=== PATIENT | male | born 1955 | race Caucasian/White ===

== ENCOUNTER 2017-06-11 06:52 | Emergency (ER) | payer BC, OTHER ==
[2017-06-11 07:03] VITALS: BP 180/88
[2017-06-11] MEDS ORDERED: cefTRIAXone 1 GM VIAL IM STA (07:57)
[2017-06-11] MEDS ORDERED: LIDOCAINE 1% 2 ML VIAL SUBQ ONE (07:57)
--- NOTE | 2017-06-11 08:00 | ED Physician Documentation ---
History of Present Illness - Stated complaint Stated Complaint: SWOLLEN LEG/DISCOLORED - Chief complaint Chief Complaint: Ext Problem - History obtained from History obtained from: Patient - History of Present Illness Timing: Last night - Additonal information Additional information: 61-year-old male noticed some redness to the lateral aspect of his right ankle last night before he went to bed. He did have some sweats last night and had some increase in his pain overnight. This morning he is found his leg is swollen there is redness that extends all the way around the heel and he has increased pain. He does not have a fever. He does not know of any risk factors for DVT he denies being sedentary he denies recent travel or confinement. He did have some cramping of the posterior calf last night. Review of Systems Constitutional: reports: Chills, Sweats. denies: Fever Eyes: denies: Decreased vision Ears: denies: Ear pain Nose: denies: Congestion Throat: denies: Sore throat Cardiac: denies: Chest pain / pressure, Palpitations Respiratory: denies: Dyspnea, Cough GI: denies: Abdominal Pain, Nausea, Vomiting : denies: Dysuria, Frequency Skin: reports: Rash Musculoskeletal: reports: Extremity pain, Extremity swelling. denies: Neck pain , Back pain, Joint pain, Joint swelling Neurologic: denies: Generalized weakness, Focal weakness, Numbness PD PAST MEDICAL HISTORY - Past Medical History Past Medical History: Yes Cardiovascular: Hypertension - Past Surgical History Past Surgical History: No - Present Medications Home Medications: Ambulatory Orders Medication Instructions Recorded Confirmed Benazepril HCl 40 mg PO DAILY 06/11/17 06/11/17 Sulfamethoxazole/Trimethoprim 1 each PO BID #14 tablet 06/11/17 [Sulfamethoxazole-Tmp Ds Tablet] - Allergies Allergies/Adverse Reactions: Allergies Allergy/AdvReac Type Severity Reaction Status Date / Time Penicillins Allergy Rash Verified 06/11/17 07:03 - Social History Does the pt smoke?: Yes Smoking Status: Current every day smoker Does the pt drink ETOH?: Yes ETOH Use: Beer Does the pt have substance abuse?: No - Immunizations Immunizations are current?: No PD ED PE NORMAL - Vitals Vital signs reviewed: Yes (Tachycardic and hypertensive) - General General: Alert and oriented X 3, No acute distress, Well developed/nourished - HEENT HEENT: Atraumatic, PERRL, EOMI - Neck Neck: Supple, no meningeal sign - Respiratory Respiratory: No respiratory distress - Derm Derm: Normal color, Warm and dry, No rash - Extremities Extremities: No deformity, Other (There is swelling of the right calf in general without pitting edema and there is no pain to palpation of the posterior aspect of the calf. There is erythema starting on the dorsal lateral surface of the right foot and extending around the back of the ankle to the medial aspect of the heel. There is erythema that is blanching I do not see an entrance wound. There is no lymphangitic streaking.) - Neuro Neuro: Alert and oriented X 3, No motor deficit, No sensory deficit, Normal speech Eye Opening: Spontaneous Motor: Obeys Commands Verbal: Oriented GCS Score: 15 - Psych Psych: Normal mood, Normal affect Results - Vitals Vitals: Vital Signs - 24 hr 06/11/17 06:59 Temperature 36.8 C Heart Rate 105 H Respiratory 16 Rate Blood Pressure 180/88 H O2 Saturation 98 Oxygen O2 Source Room air PD MEDICAL DECISION MAKING - ED course Complexity details: reviewed results, re-evaluated patient, considered differential, d/w patient ED course: 61-year-old male with swelling and redness to the right foot appears to have cellulitis. On my initial evaluation I was concerned about the possibility of DVT as the calf appeared generally swollen. There is no lymphangitic streaking and the patient is afebrile. Here in the emergency department he is administered Rocephin IM and we will place him on some sulfamethoxazole trimethoprim. I have asked patient to use a warm compress and elevate his leg and follow-up for failure to improve. Departure - Departure Disposition: 01 Home, Self Care Clinical Impression: Cellulitis Qualifiers: Site of cellulitis: extremity Site of cellulitis of extremity: lower extremity Laterality: right Qualified Code(s): L03.115 - Cellulitis of right lower limb Condition: Stable Instructions: ED Infec Skin Cellulitis Follow-Up: [facility] [Provider Group] Prescriptions: Sulfamethoxazole/Trimethoprim [Sulfamethoxazole-Tmp Ds Tablet] 1 each PO BID # 14 tablet
--- NOTE | 2017-06-11 08:29 | Ultrasound Report ---
EXAM: RIGHT LOWER EXTREMITY VENOUS ULTRASOUND EXAM DATE: 06/11/2017 07:50 AM. CLINICAL HISTORY: Right leg swelling tender redness. COMPARISON: None. TECHNIQUE: Real-time sonographic vascular imaging was performed by the electro mechanical designer through the lower extremity utilizing both color-flow and Doppler spectral analysis. Multiple junior sales representative static alpesh ges were saved for review. FINDINGS: Common Femoral Vein (CFV): Normal. CFV-GSV Junction: Normal. Profunda Femoral Vein (PFV): Normal. Femoral Vein (FV) Prox: Normal. Femoral Vein (FV) Mid: Normal. Femoral Vein (FV) Dist: Normal. Popliteal Vein: Normal. Posterior Tibial Veins: Normal. Peroneal Veins: Normal. Other: None. IMPRESSION: No evidence for deep venous thrombosis. [facility] Referring Provider Line: [phone] SITE ID: [id number]
== END 2017-06-11 08:29 | disposition home or self-care (01) ==
LOC: ED 06:52
DX: L03.115 Cellulitis of right lower limb (principal); I10 Essential (primary) hypertension; F17.200 Nicotine dependence, unspecified, uncomplicated
CPT/HCPCS: 96372; 99283

== ENCOUNTER 2020-10-06 12:07 | Outpatient (CLI) | payer MEDICARE, OTHER ==
--- NOTE | 2020-10-06 12:44 | XRAY Report ---
PROCEDURE: Elbow 3 View RT INDICATIONS: WRIST DROP TECHNIQUE: 3 views of the elbow were acquired. COMPARISON: Same day wrist radiographs. FINDINGS: Bones: No fractures or dislocations. Mild degenerative change appreciated. No suspicious bony lesio ns. Soft tissues: No posterior elbow joint effusion. No suspicious soft tissue calcifications. IMPRESSION: No acute osseous abnormality. Reviewed by: Yannick Powell MD on 10/06/2020 12:43 PM PDT Approved by: Yannick Powell MD on 10/06/2020 12:43 PM PDT Station ID: [id number]
--- NOTE | 2020-10-06 12:47 | XRAY Report ---
PROCEDURE: Wrist 3 View RT INDICATIONS: WRIST DROP TECHNIQUE: 3 views of the wrist were acquired. COMPARISON: Same day right elbow radiographs. FINDINGS: Bones: No acute fractures or dislocations. Suspect prior fracture deformity of the fifth metacarpal. Moderate degenerative change most pronounced at the first CMC joint. Bones appear somewhat osteopeni c. No suspicious bony lesions. Soft tissues: No suspicious soft tissue calcifications. IMPRESSION: No acute osseous abnormality. 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 Results were communicated to Dr. Magdalena Garrido at 10/06/2020 12:45 PM PDT. Reviewed by: Yannick Powell MD on 10/06/2020 12:45 PM PDT Approved by: Yannick Powell MD on 10/06/2020 12:45 PM PDT Station ID: [id number]
== END 2020-10-06 12:08 | disposition home or self-care (01) ==
LOC: DI 12:07
PROVIDERS: ATTEND Internal Medicine
DX: M21.331 Wrist drop, right wrist (principal); M19.031 Primary osteoarthritis, right wrist

== ENCOUNTER 2022-04-04 11:20 | Outpatient (CLI) | payer MEDICARE, OTHER | END 2022-04-04 11:21 | disposition critical access hospital (66) | LOC: EMS 11:20 | DX: R53.1 Weakness (principal); M25.569 Pain in unspecified knee; R62.7 Adult failure to thrive; Z72.89 Other problems related to lifestyle | CPT/HCPCS: A0425; A0429 ==

== ENCOUNTER 2022-04-04 11:37 | Inpatient (IN) | payer MEDICARE, OTHER ==
[2022-04-04] MEDS ORDERED: THIAMINE INJ 100 MG in SODIUM CHLORIDE 0.9% 50 ML IV STA (11:52)
--- NOTE | 2022-04-04 11:54 | ED Physician Documentation ---
History of Present Illness - Stated complaint Stated Complaint: FTT - History obtained from History obtained from: Patient, EMS - Additonal information Additional information: 66-year-old gentleman with history of hypertension brought in by ambulance. He lives alone but with frequent visits by family. His son-in-law is at the bedside who gives much of the history. Lately he has been increasingly weak and off balance with increasing confusion. He drinks heavily, every day starting about 9 in the morning. 5 days ago he fell out of his desk chair and his walker hit him in the back of the head. He also has poor mobility because of known bad knees, has seen a specialist for same but cannot have surgery due to ongoing comorbidities including alcohol and tobacco use. His only prescribed medication is an unknown antihypertensive. Review of Systems Unable to obtain: Confused PD PAST MEDICAL HISTORY - Past Medical History Cardiovascular: Hypertension - Past Surgical History Past Surgical History: No - Present Medications Home Medications: Ambulatory Orders Medication Instructions Recorded Confirmed Benazepril HCl 40 mg PO DAILY 06/11/17 06/11/17 Sulfamethoxazole/Trimethoprim 1 each PO BID #14 tablet 06/11/17 [Sulfamethoxazole-Tmp Ds Tablet] - Allergies Allergies/Adverse Reactions: Allergies Allergy/AdvReac Type Severity Reaction Status Date / Time Penicillins Allergy Rash Verified 06/11/17 07:03 - Social History Does the pt smoke?: Yes Smoking Status: Current every day smoker Does the pt drink ETOH?: Yes Does the pt have substance abuse?: No - Immunizations Immunizations are current?: No PD ED PE NORMAL - Vitals Vital signs reviewed: Yes - General General: Other (He is alert and oriented to person and place but a poor historian for events. He is disheveled and soiled) - HEENT HEENT: PERRL, EOMI - Neck Neck: Supple, no meningeal sign, No bony TTP - Cardiac Cardiac: RRR, No murmur - Respiratory Respiratory: No respiratory distress, Clear bilaterally - Abdomen Abdomen: Non tender - Back Back: No CVA TTP, No spinal TTP - Derm Derm: Normal color, Warm and dry - Extremities Extremities: Other (Bilateral knees are swollen consistent with osteoarthritis) - Neuro Neuro: golf club manager 2-12 intact Eye Opening: Spontaneous Motor: Obeys Commands Verbal: Confused GCS Score: 14 Results - Vitals Vitals: Vital Signs - 24 hr 04/04/22 04/04/22 11:47 14:58 Temperature 37.6 C Heart Rate 99 104 H Respiratory 19 28 H Rate Blood Pressure 142/78 H 145/78 H O2 Saturation 99 94 Oxygen O2 Source Room air - EKG (time done) 1220 Rate: Rate (enter#) (94) Rhythm: NSR Other comments: Other comments (Significant artifact makes the EKG almost uninterpretable. There is no clear ST elevation.) - Labs Labs: Laboratory Tests 04/04/22 04/04/22 04/04/22 12:03 12:03 12:03 WBC 7.5 RBC 4.47 L Hgb 14.6 Hct 40.0 L MCV 89.5 MCH 32.7 H MCHC 36.5 H RDW 11.9 L Plt Count 142 MPV 9.9 Neut # (Auto) Not Reportable Lymph # (Auto) Not Reportable Mchenry # (Auto) Not Reportable Eos # (Auto) Not Reportable Baso # (Auto) Not Reportable Absolute Nucleated RBC Not Reportable Total Counted 100 Band Neuts % (Manual) 7 Reactive Lymphs % (Man) 2 Abnorm Lymph % (Manual) 0 Nucleated RBC % Not Reportable Neutrophils # (Manual) 6.2 Lymphocytes # (Manual) 0.4 L Monocytes # (Manual) 1.0 Eosinophils # (Manual) 0.0 Basophils # (Manual) 0.0 Differential Comment MANUAL DIFFERENTIAL Manual Slide Review Indicated PT 11.9 INR 1.1 VBG pH VBG pCO2 VBG pO2 VBG HCO3 VBG Total CO2 VBG O2 Saturation VBG Base Excess Sodium 106 L* Potassium 3.9 Chloride 74 L* Carbon Dioxide 22 Anion Gap 10.0 BUN 20 Creatinine 0.7 Estimated GFR (MDRD) 112 Glucose 104 H Calcium 7.6 L Magnesium 2.4 Total Bilirubin 1.4 H AST 161 H ALT 95 H Alkaline Phosphatase 76 Ammonia Total Creatine Kinase 1788 H* Total Protein 6.8 Albumin 3.2 Globulin 3.6 Albumin/Globulin Ratio 0.9 L TSH Urine Color Urine Clarity Urine pH Ur Specific Cary Urine Protein Urine Glucose (UA) Urine Ketones Urine Occult Blood Urine Nitrite Urine Bilirubin Urine Urobilinogen Ur Leukocyte Esterase Ur Microscopic Review Urine Culture Comments Nasal Adenovirus (PCR) Nasal B. parapertussis DNA (PCR) Nasal Coronavir 229E PCR Nasal Coronavir HKU1 PCR Nasal Coronavir NL63 PCR Nasal Coronavir OC43 PCR Nasal Enterovir/Rhinovir PCR Nasal Influ A H1 2009 PCR Nasal Influenza B PCR Nasal Parainfluen 1 PCR Nasal Parainfluen 2 PCR Nasal Parainfluen 3 PCR Nasal Parainfluen 4 PCR Nasal RSV (PCR) Nasal B.pertussis DNA PCR Nasal C.pneumoniae (PCR) Mitchell Human Metapneumo PCR Nasal M.pneumoniae (PCR) Nasal SARS-CoV-2 (PCR) Urine Opiates Screen Ur Oxycodone Screen Urine Methadone Screen Ur Propoxyphene Screen Ur Barbiturates Screen Ur Tricyclics Screen Ur Phencyclidine Scrn Ur Amphetamine Screen U Methamphetamines Scrn U Benzodiazepines Scrn Urine Cocaine Screen U Cannabinoids Screen Ethyl Alcohol < 5.0 04/04/22 04/04/22 04/04/22 12:03 12:03 12:03 WBC RBC Hgb Hct MCV MCH MCHC RDW Plt Count MPV Neut # (Auto) Lymph # (Auto) Mchenry # (Auto) Eos # (Auto) Baso # (Auto) Absolute Nucleated RBC Total Counted Band Neuts % (Manual) Reactive Lymphs % (Man) Abnorm Lymph % (Manual) Nucleated RBC % Neutrophils # (Manual) Lymphocytes # (Manual) Monocytes # (Manual) Eosinophils # (Manual) Basophils # (Manual) Differential Comment Manual Slide Review PT INR VBG pH 7.466 H VBG pCO2 31.9 L VBG pO2 51.2 H VBG HCO3 22.5 L VBG Total CO2 23.5 L VBG O2 Saturation 90.0 H VBG Base Excess -0.3 Sodium Potassium Chloride Carbon Dioxide Anion Gap BUN Creatinine Estimated GFR (MDRD) Glucose Calcium Magnesium Total Bilirubin AST ALT Alkaline Phosphatase Ammonia 16.4 Total Creatine Kinase Total Protein Albumin Globulin Albumin/Globulin Ratio TSH 0.88 Urine Color Urine Clarity Urine pH Ur Specific Cary Urine Protein Urine Glucose (UA) Urine Ketones Urine Occult Blood Urine Nitrite Urine Bilirubin Urine Urobilinogen Ur Leukocyte Esterase Ur Microscopic Review Urine Culture Comments Nasal Adenovirus (PCR) Nasal B. parapertussis DNA (PCR) Nasal Coronavir 229E PCR Nasal Coronavir HKU1 PCR Nasal Coronavir NL63 PCR Nasal Coronavir OC43 PCR Nasal Enterovir/Rhinovir PCR Nasal Influ A H1 2009 PCR Nasal Influenza B PCR Nasal Parainfluen 1 PCR Nasal Parainfluen 2 PCR Nasal Parainfluen 3 PCR Nasal Parainfluen 4 PCR Nasal RSV (PCR) Nasal B.pertussis DNA PCR Nasal C.pneumoniae (PCR) Mitchell Human Metapneumo PCR Nasal M.pneumoniae (PCR) Nasal SARS-CoV-2 (PCR) Urine Opiates Screen Ur Oxycodone Screen Urine Methadone Screen Ur Propoxyphene Screen Ur Barbiturates Screen Ur Tricyclics Screen Ur Phencyclidine Scrn Ur Amphetamine Screen U Methamphetamines Scrn U Benzodiazepines Scrn Urine Cocaine Screen U Cannabinoids Screen Ethyl Alcohol 04/04/22 04/04/22 12:24 15:13 WBC RBC Hgb Hct MCV MCH MCHC RDW Plt Count MPV Neut # (Auto) Lymph # (Auto) Mchenry # (Auto) Eos # (Auto) Baso # (Auto) Absolute Nucleated RBC Total Counted Band Neuts % (Manual) Reactive Lymphs % (Man) Abnorm Lymph % (Manual) Nucleated RBC % Neutrophils # (Manual) Lymphocytes # (Manual) Monocytes # (Manual) Eosinophils # (Manual) Basophils # (Manual) Differential Comment Manual Slide Review PT INR VBG pH VBG pCO2 VBG pO2 VBG HCO3 VBG Total CO2 VBG O2 Saturation VBG Base Excess Sodium Potassium Chloride Carbon Dioxide Anion Gap BUN Creatinine Estimated GFR (MDRD) Glucose Calcium Magnesium Total Bilirubin AST ALT Alkaline Phosphatase Ammonia Total Creatine Kinase Total Protein Albumin Globulin Albumin/Globulin Ratio TSH Urine Color DARK YELLOW Urine Clarity CLEAR Urine pH 6.0 Ur Specific Cary 1.015 Urine Protein NEGATIVE Urine Glucose (UA) NEGATIVE Urine Ketones 15 H Urine Occult Blood NEGATIVE Urine Nitrite NEGATIVE Urine Bilirubin NEGATIVE Urine Urobilinogen 0.2 (NORMAL) Ur Leukocyte Esterase NEGATIVE Ur Microscopic Review NOT INDICATED Urine Culture Comments NOT INDICATED Nasal Adenovirus (PCR) NOT DETECTED Nasal B. parapertussis DNA (PCR) NOT DETECTED Nasal Coronavir 229E PCR NOT DETECTED Nasal Coronavir HKU1 PCR NOT DETECTED Nasal Coronavir NL63 PCR NOT DETECTED Nasal Coronavir OC43 PCR NOT DETECTED Nasal Enterovir/Rhinovir PCR NOT DETECTED Nasal Influ A H1 2009 PCR DETECTED A Nasal Influenza B PCR NOT DETECTED Nasal Parainfluen 1 PCR NOT DETECTED Nasal Parainfluen 2 PCR NOT DETECTED Nasal Parainfluen 3 PCR NOT DETECTED Nasal Parainfluen 4 PCR NOT DETECTED Nasal RSV (PCR) NOT DETECTED Nasal B.pertussis DNA PCR NOT DETECTED Nasal C.pneumoniae (PCR) NOT DETECTED Mitchell Human Metapneumo PCR NOT DETECTED Nasal M.pneumoniae (PCR) NOT DETECTED Nasal SARS-CoV-2 (PCR) NOT DETECTED Urine Opiates Screen NEGATIVE Ur Oxycodone Screen NEGATIVE Urine Methadone Screen NEGATIVE Ur Propoxyphene Screen NEGATIVE Ur Barbiturates Screen NEGATIVE Ur Tricyclics Screen NEGATIVE Ur Phencyclidine Scrn NEGATIVE Ur Amphetamine Screen NEGATIVE U Methamphetamines Scrn NEGATIVE U Benzodiazepines Scrn NEGATIVE Urine Cocaine Screen NEGATIVE U Cannabinoids Screen NEGATIVE Ethyl Alcohol - Rads (name of study) CT of the head is without traumatic abnormality. Radiology: Final report received, EMP read indepedently PD Medical Decision Making - ED course ED course: 66-year-old gentleman with alcoholism and bad knees and hypertension presents with altered mental status. He is unkempt and confused. Work-up in the emergency department noted a profoundly low sodium at 106, no alcohol on board, mild abnormalities in liver function and moderate rhabdomyolysis. His supportive son-in-law, Zain, was at the bedside. His phone number is [phone]. Given the profundity of his hyponatremia he was administered 100 mL of 3% hypertonic saline. Spoke with Dr. Desai for admission at 3:[address] of the head and cervical spine without evidence of acute trauma. - Critical Care Time(min): 40 Time Includes: Direct patient care, Review records, Reassess patient, Document care, Coordinate care, Medical consult, Family consult for tx dec Data interpretation: Labs, Pulse ox Procedures included in critical care time: Peripheral IV Procedures excluded from critical care time: EKG Departure - Departure Disposition: 66 [facility] DC/Xfer Clinical Impression: Hyponatremia, Encephalopathy, Alcoholism, Rhabdomyolysis Condition: Critical
[2022-04-04 12:10] LABS: BASOPHILS % (AUTO) 0.4 %; EOSINOPHILS % (AUTO) 35.8 %; HGB - HEMOGLOBIN 14.6 g/dL (14.0-18.0); LYMPHOCYTES % (AUTO) 7.6 %; MEAN CORPUSCULAR HEMOGLOBIN 32.7 pg (27.0-31.0); MEAN CORPUSCULAR HGB CONC 36.5 g/dL (32.0-36.0); MEAN CORPUSCULAR VOLUME 89.5 fL (80.0-94.0); MEAN PLATELET VOLUME 9.9 fL (7.4-11.4); MONOCYTES % (AUTO) 10.9 %; NEUTROPHILS % (AUTO) 43.3 %; PLT - PLATELET COUNT 142 10^3/uL (130-450); RED BLOOD COUNT 4.47 10^6/uL (4.70-6.10); RED CELL DISTRIBUTION WIDTH 11.9 % (12.0-15.0); WHITE BLOOD COUNT 7.5 x10^3/uL (4.8-10.8)
[2022-04-04 12:12] LABS: SLIDE REVIEW? Indicated
[2022-04-04 12:13] LABS: ABNORMAL LYMPHS % (MANUAL) 0 %
[2022-04-04 12:16] LABS: INR 1.1 (0.8-1.2); PT - PROTHROMBIN TIME 11.9 secs (9.9-12.6)
[2022-04-04 12:18] LABS: VBG BASE EXCESS -0.3 mmol/L (-2 - +2); VBG HCO3 22.5 mmol/L (23-28); VBG PCO2 31.9 mmHg (41-51); VBG PH 7.466 (7.31-7.41); VBG PO2 51.2 mmHg (25-47); VBG TOTAL CO2 23.5 mmol/L (24-29)
[2022-04-04 12:35] LABS: ALBUMIN 3.2 g/dL (3.2-5.5); ALBUMIN/GLOBULIN RATIO 0.9 (1.0-2.2); ALKALINE PHOSPHATASE 76 IU/L (42-121); ALT ALANINE AMINOTRANSFERASE 95 IU/L (10-60); AST ASPARTATE AMINOTRANSFERASE 161 IU/L (10-42); BILIRUBIN,TOTAL 1.4 mg/dL (0.2-1.0); BUN - BLOOD UREA NITROGEN 20 mg/dL (6-20); CALCIUM 7.6 mg/dL (8.5-10.3); CARBON DIOXIDE - CO2 22 mmol/L (21-32); CREATININE 0.7 mg/dL (0.6-1.2); ETOH - ETHANOL < 5.0 mg/dL; GFR - MDRD 112 (>89); GLUCOSE 104 mg/dL (70-100); MAGNESIUM 2.4 mg/dL (1.7-2.8); POTASSIUM 3.9 mmol/L (3.5-5.0); TOTAL PROTEIN 6.8 g/dL (6.7-8.2)
[2022-04-04] MEDS ORDERED: NOREPINEPHRINE/D5W 8 MG/250 ML BAG IV STA (12:41)
--- NOTE | 2022-04-04 12:49 | XRAY Report ---
PROCEDURE: Chest 1 View X-Ray INDICATIONS: confusion TECHNIQUE: One view of the chest was acquired. COMPARISON: None. FINDINGS: Surgical changes and devices: None. Lungs and pleura: No pleural effusions or pneumothorax. Minimal patchy bibasilar atelectasis. Mediastinum: Mediastinal contours appear normal. Heart size is normal. Bones and chest wall: No suspicious bony lesions. Overlying soft tissues appear unremarkable. IMPRESSION: Minimal patchy bibasilar atelectasis. Reviewed by: Jose Hunter MD on 04/04/2022 12:48 PM PST Approved by: Jose Hunter MD on 04/04/2022 12:48 PM PST Station ID: [id number]
[2022-04-04 12:58] LABS: BAND NEUTROPHILS % (MANUAL) 7 %; DIFFERENTIAL COMMENT MANUAL DIFFERENTIAL; LYMPHOCYTES # (MANUAL) 0.4 10^3/uL (1.5-3.5); LYMPHOCYTES % (MANUAL) 3 %; NEUTROPHILS # (MANUAL) 6.2 10^3/uL (1.5-6.6); REACTIVE LYMPHS % (MANUAL) 2 %
[2022-04-04 13:01] LABS: CHLORIDE 74 mmol/L (101-111); CK- CREATINE KINASE 1788 IU/L (22-269); SODIUM 106 mmol/L (135-145)
[2022-04-04] MEDS ORDERED: SODIUM CHLORIDE 3% HYPERTONIC 100 ML IV SCH (14:00)
--- NOTE | 2022-04-04 14:26 | CT Report ---
PROCEDURE: HEAD WO INDICATIONS: head injury TECHNIQUE: Noncontrast 4.5 mm thick angled axial sections acquired from the foramen magnum to the vertex. For r adiation dose reduction, the following was used: automated exposure control, adjustment of mA and/or kV according to patient size. COMPARISON: None. FINDINGS: Image quality: Suboptimal due to motion artifact. CSF spaces: Basal cisterns are patent. No extra-axial fluid collections. Ventricles are normal in size and shape. Brain: Ill-defined periventricular and deep white matter hypodensities, nonspecific, likely sequela of microvascular ischemic change. No midline shift. No intracranial masses or hemorrhage. Landin-whit e matter interface is normal. Skull and face: Calvarium and visualized facial bones are intact, without suspicious lesions. Sinuses: Bilateral maxillary sinus mucoperiosteal thickening. IMPRESSION: No intracranial hemorrhage or other acute intracranial abnormality. Reviewed by: Noé Johnson MD on 04/04/2022 2:25 PM PST Approved by: Noé Johnson MD on 04/04/2022 2:25 PM PST Station ID: [id number]
[2022-04-04 15:18] LABS: MUDS CUTOFF CONCENTRATIONS CUTOFF CONC BELOW:
--- NOTE | 2022-04-04 15:22 | CT Report ---
PROCEDURE: CERVICAL SPINE WO INDICATIONS: head inju TECHNIQUE: Noncontrast 3 mm thick sections acquired from the skull base to the T4 level. Sagittal and coronal r eformats were then constructed. For radiation dose reduction, the following was used: automated exp osure control, adjustment of mA and/or kV according to patient size. COMPARISON: None. FINDINGS: Image quality: Excellent. Bones: No fractures or dislocations. Visualized superior ribs are intact. Severe cervical spondylit ic change. Multilevel prominent facet arthropathy. Trace degenerative anterolisthesis of C2 on C3. An terolisthesis of C3 on C4 measures approximately 4 mm. Trace degenerative retrolisthesis of C4 on C5. Multilevel foraminal narrowing. Soft tissues: Prevertebral soft tissues are normal in thickness. No paravertebral hematomas. No ap ical pneumothoraces. Small questioned spiculated density, anterior right apex. Probable left apical infiltrate. IMPRESSION: 1. No evidence acute cervical fracture or dislocation. 2. Severe cervical spondylitic change. 3. Question small spiculated lesion, right apex, incompletely imaged, question left apical pneumonia. Comment: Consider chest CT for further evaluation. Reviewed by: Jose Hunter MD on 04/04/2022 3:21 PM PST Approved by: Jose Hunter MD on 04/04/2022 3:21 PM PST Station ID: [id number]
[2022-04-04 15:25] LABS: BILIRUBIN,URINE NEGATIVE (NEGATIVE); GLUCOSE, URINE (UA) NEGATIVE (NEGATIVE); KETONES,URINE (UA) 15 mg/dL (NEGATIVE); LEUKOCYTE ESTERASE, URINE NEGATIVE (NEGATIVE); NITRITE,URINE NEGATIVE (NEGATIVE); OCCULT BLOOD,URINE NEGATIVE (NEGATIVE); PROTEIN,URINE NEGATIVE (NEGATIVE); UROBILINOGEN,URINE 0.2 (NORMAL) E.U./dL (NORMAL)
[2022-04-04 15:28] LABS: CLARITY,URINE CLEAR (CLEAR)
[2022-04-04 15:35] LABS: AMPHETAMINE SCREEN,URINE NEGATIVE (NEGATIVE); BARBITURATE SCREEN,UR NEGATIVE (NEGATIVE); BENZODIAZEPINES SCREEN, URINE NEGATIVE (NEGATIVE); COCAINE SCREEN URINE NEGATIVE (NEGATIVE); METHADONE SCREEN, URINE NEGATIVE (NEGATIVE); METHAMPHETAMINES SCREEN, URINE NEGATIVE (NEGATIVE); OPIATE SCREEN, URINE NEGATIVE (NEGATIVE); OXYCODONE SCREEN, URINE NEGATIVE (NEGATIVE); PROPOXYPHENE SCREEN, URINE NEGATIVE (NEGATIVE); THC CANNABINOID SCREEN, URINE NEGATIVE (NEGATIVE); TRICYCLIC ANTIDEPRESSANT,URINE NEGATIVE (NEGATIVE)
[2022-04-04] MEDS ORDERED: oxyCODONE 5 MG TABLET PO PRN (15:40)
[2022-04-04] MEDS ORDERED: ONDANSETRON ODT 4 MG TABLET TL PRN (15:40)
[2022-04-04] MEDS ORDERED: ACETAMINOPHEN 325 MG TABLET PO PRN (15:40)
[2022-04-04] MEDS ORDERED: SODIUM CHLORIDE FLUSH 0.9% 10 ML SYRINGE IVP PRN (15:40)
[2022-04-04] MEDS ORDERED: ONDANSETRON 4 MG/2 ML VIAL IVP PRN (15:40)
[2022-04-04 15:41] LABS: CORONAVIRUS 229E-RESP PCR NOT DETECTED; CORONAVIRUS HKU1-RESP PCR NOT DETECTED; CORONAVIRUS NL63-RESP PCR NOT DETECTED; CORONAVIRUS OC43-RESP PCR NOT DETECTED
[2022-04-04 15:42] LABS: B. PARAPERTUSSIS- RESP PCR PAN NOT DETECTED; B. PERTUSSIS- RESP PCR PANEL NOT DETECTED; C. PNEUMONIAE- RESP PCR PANEL NOT DETECTED; HUMAN METAPNEUMOVIRUS NOT DETECTED; INFLUENZA A H1 2009- RESP PCR DETECTED; INFLUENZA B - RESP PCR PANEL NOT DETECTED; M. PNEUMONIAE- RESP PCR PANEL NOT DETECTED; PARAINFLUENZA VIRUS 1 NOT DETECTED; PARAINFLUENZA VIRUS 2 NOT DETECTED; PARAINFLUENZA VIRUS 3 NOT DETECTED; PARAINFLUENZA VIRUS 4 NOT DETECTED; RHINOVIRUS/ENTEROVIRUS NOT DETECTED; RSV- RESP PCR PANEL NOT DETECTED; SARS-CoV-2 -RESP PCR PANEL NOT DETECTED
--- NOTE | 2022-04-04 15:56 | HISTORY & PHYSICAL EXAMINATION ---
Chief Complaint - Chief Complaint Chief Complaint: weakness and confusion History of Present Illness - Admitted From Admitted From:: [facility] - History Obtained From Records Reviewed: [facility] History obtained from: Exam Limitations: confused and disoriented - History of Present Illness HPI Comment/Other: LIves alone in his home with . 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 Not home until evenings. He sits at chair in computer for years now. Watches videos, reads papers, [employer]. Doesn't move. No hx of CHF or chirrosis. Refuses to see a doctor or do tests. Sees Magdalena Garrido MD and she wanted to do some tests a while back and he refused. So afer several calls where they attempted to get him to come in and he refused, they gave up. He is an alcoholic and drinks 12-15 beers a day. In the last few days, none. Both he and got a virus. Cough, congestion. He complains of WOODWARD and neck pain, diarrhea. She kept having to change him and clean him up becasue of incontinence. Gave him peptobismol. He has been eating and drinking his one meal a day like usual, no change in that. He has not been drinking a lot of water. She feels has been drinking his normal amount of water. However, he got to the point he couldn't stand up and fell 3 times. She and son in law would pick him up. Last night, they got him up to chair and he spent the night there. No fever, no abd pain, no chest pain. This morning, when he just could not get up out of the chair, they decided to call an ambulance. In the ER temperature was 37.6. Heart rate 99. Blood pressure 142/78. Respirations 19. 99% on room air. He is 5 foot 9 inches tall. He was alert and oriented but a poor historian for events. He was disheveled, soiled. He had a benign respiratory and abdominal exam. Both of his knees were swollen with osteoarthritis. Sodium was 106, potassium 3.9, chloride 74. BUN 20, creatinine 0.7. Glucose is 104. Calcium 7.6. Total bili 1.4. AST 161. ALT 95. Ammonia level was 16.4. CK was 1788. TSH was 0.88. White cell count was 7.5, hemoglobin 14.6, hematocrit 40. Platelets 142.Chest x-ray, head CT, and cervical spine CT were done. He has some minimal patchy bibasilar atelectasis but no acute findings of stroke, hemorrhage in the brain. We discussed the case. Differential diagnosis of why you would have a low sodium. He does not have excessive water intake. There is no medication that he is taking that would cause this. No suspicion of SIADH. In this patient, the thought is his alcohol abuse. Possibly beer potomania. The usual description is that of excessive intake of alcohol, particularly beer, and you combine that with poor dietary intake that leads to fatigue, dizziness, severe hyponatremia. I have been asked to bring him into the hospital. History - Past Medical History Cardiovascular: reports: Hypertension Respiratory: reports: COPD (probably bc coughs all days for years. ) Neuro: reports: Dementia (developing over the last few years, babbles some times) : reports: Incontinence HEENT: reports: Chronic vision loss Musculoskeletal: reports: Osteoarthritis MRSA Hx?: No - Family & Social History Family History Comment/Other: Mom alive and lives in [facility]. Dad 57 years old of CHF. [place] (+). sister in [place]. She is healthy. no hx of illness. 1 daughter is healthy. Living arrangement: At home Living Situation: With spouse/s.o. 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 Lifelong drinker. Friend nina him a bottle of bourbon last week but couldn't do it and hid it. Rehab once when daughter was a baby. Lifelong smoker, carton if cigs a week right now. 46 years. He met his in [place] when he was in the [employer] Born in [facility] and emigrated at 10- 10 years of age.No recreational substance abuse. - POLST Patient has POLST: No POLST Status: Full Code Meds/Allgy - Home Medications Home Medications: Ambulatory Orders Medication Instructions Recorded Confirmed Benazepril HCl 40 mg PO DAILY 06/11/17 06/11/17 Sulfamethoxazole/Trimethoprim 1 each PO BID #14 tablet 06/11/17 [Sulfamethoxazole-Tmp Ds Tablet] - Allergies Allergies/Adverse Reactions: Allergies Allergy/AdvReac Type Severity Reaction Status Date / Time Penicillins Allergy Rash Verified 06/11/17 07:03 Review of Systems - Other Findings Other Findings: Other than what was described to me by his , the patient is really not able to answer my questions with regards to his overall general health. Prior Level of Functionality: sits at the computer. Baths himself, feeds himself. Knees are bad and go out but he can get up. Still drives but hasn't done it since September when he got covid in October. Twice out since then. Uses a walker. Shower chair. Raised toilet seat. Exam - Vital Signs Reviewed Vital Signs: Yes Vital Signs: Vital Signs x48h Temp Pulse Resp BP Pulse Ox 04/04/22 11:47 37.6 C 99 19 142/78 H 99 - Physical Exam General Appearance: positive: No acute distress, Alert, Other (Disheveled, unkempt.) Eyes Bilateral: positive: PERRL, EOMI ENT: positive: No signs of dehydration Neck: positive: No JVD. negative: Stiff neck Respiratory: positive: No respiratory distress. negative: Wheezes, Rales, Rhonchi Cardiovascular: positive: Regular rate & rhythm, Systolic murmur Peripheral Pulses: positive: 1+ Abdomen: positive: Non-tender, Nml bowel sounds, Other (Slight bloating and distention.). negative: Guarding, Rebound Skin: positive: Warm, Dry, Pallor Extremities: positive: Full ROM, No pedal edema Neurologic/Psychiatric: positive: CN's nml (2-12), Disoriented to time. negative: Motor nml (Generalized weakness. No focal deficits.) Conclusion/Plan - Problem List (1) Hyponatremia Conclusion/Plan: Most likely in the setting of excessive beer intake, and poor nutrition. This affects the kidney and causes and delusional hyponatremia secondary to reduced clearance of fluid from his body. Plan: Inpatient status Check sodium every 6 hours Goal is no more than 6 to 8 mEq in 24-hour rise Even though I know I will not be getting these results, I have ordered a serum osmolality and urine osmolality. Even if they come back after the patient is discharged we will least have started a work-up that may be helpful. If his sodium rises too rapidly, I will give intermittent D5 boluses to control the rise in sodium. (2) Alcoholism Conclusion/Plan: He has not had a beer in a few days. The has always been concerned about stopping his beer drinking by restricting it, because she felt he would go into withdrawal and possibly have seizures and . But he has not had a beer in for 5 days. So far no tremors, no tachycardia, no hypertension. Plan: Thiamine in the ER. I cannot give him D5 with a banana bag because of the sodium. We will try and supplement p.o. I have ordered a vitamin. (3) Rhabdomyolysis Conclusion/Plan: Unfortunately we cannot give him aggressive IV fluids because of the hyponatremia. But we will continue to monitor this. Between the normal saline and hypertonic saline his CK should go down. Qualifiers: Rhabdomyolysis type: non-traumatic Qualified Code(s): M62.82 - Rhabdomyolysis (4) COPD (chronic obstructive pulmonary disease) Conclusion/Plan: He presented is 99% on room air. Throughout the day he has been 93 to 94%. No wheezing. He does have a prolonged and exhalation phase. He is not on any bronchodilators at home. He appears to be without exacerbation. Plan: Solu-Medrol. Discussion may help him with sodium. DuoNeb 4 times daily as needed Qualifiers: COPD type: emphysema Emphysema type: unspecified Qualified Code(s): J43.9 - Emphysema, unspecified (5) Hypertension Conclusion/Plan: He takes benazepril at home. Will order lisinopril for here. Qualifiers: Hypertension type: primary hypertension Qualified Code(s): I10 - Essential (primary) hypertension - Lab Results Lab results reviewed: Yes Fish Bones: 04/04/22 12:03 04/04/22 16:05 - Diagnostic Imaging Results Diagnostic Imaging Results: positive: Final report reviewed Diagnostic Imaging Results Comments: Chest x-rays with minimal patchy bibasilar atelectasis Head CT has no acute intracranial hemorrhage or other acute intracranial abnormality. Bilateral maxillary sinus mucoperiosteal thickening. He has ill- defined periventricular and deep white matter hypodensities, nonspecific and likely sequela of microvascular ischemic changes. Core Measures - Anticipated LOS I expect patient to be DC'd or transferred within 96 hours.: Yes - DVT/VTE - Prophylaxis VTE/DVT Prophylaxis med ordered at admit?: Yes
[2022-04-04] MEDS: SODIUM CHLORIDE FLUSH 0.9% 10 ML SYRINGE IVP SCH (18:21)
[2022-04-04] MEDS ORDERED: SODIUM CHLORIDE 3% HYPERTONIC 500 ML IV SCH (23:00)
[2022-04-04] MEDS ORDERED: IPRATROPIUM/ALBUTEROL 3 ML NEB INH PRN (23:00)
[2022-04-05] MEDS: ZINC OXIDE 20% OINT 30 GM TUBE TOP PRN (00:36)
[2022-04-05] MEDS: SODIUM CHLORIDE FLUSH 0.9% 10 ML SYRINGE IVP SCH ×3 (00:59→15:38)
[2022-04-05 04:46] LABS: BASOPHILS % (AUTO) 0.2 %; EOSINOPHILS % (AUTO) 1.2 %; HCT - HEMATOCRIT 36.8 % (42.0-52.0); HGB - HEMOGLOBIN 13.5 g/dL (14.0-18.0); LYMPHOCYTES % (AUTO) 6.6 %; MEAN CORPUSCULAR HEMOGLOBIN 33.3 pg (27.0-31.0); MEAN CORPUSCULAR HGB CONC 36.7 g/dL (32.0-36.0); MEAN CORPUSCULAR VOLUME 90.9 fL (80.0-94.0); MEAN PLATELET VOLUME 9.9 fL (7.4-11.4); MONOCYTES % (AUTO) 9.8 %; NEUTROPHILS % (AUTO) 80.9 %; PLT - PLATELET COUNT 142 10^3/uL (130-450); RED BLOOD COUNT 4.05 10^6/uL (4.70-6.10); RED CELL DISTRIBUTION WIDTH 11.9 % (12.0-15.0); WHITE BLOOD COUNT 9.8 x10^3/uL (4.8-10.8)
[2022-04-05 04:47] LABS: CALCIUM, IONIZED 0.95 mmol/L (1.15-1.33); VBG PH 7.425 (7.31-7.41)
[2022-04-05 04:51] LABS: ABNORMAL LYMPHS % (MANUAL) 0 %
[2022-04-05 04:57] LABS: CALCIUM 7.1 mg/dL (8.5-10.3); CREATININE 0.6 mg/dL (0.6-1.2); POTASSIUM 3.4 mmol/L (3.5-5.0)
[2022-04-05 05:04] LABS: BAND NEUTROPHILS % (MANUAL) 3 %; DIFFERENTIAL COMMENT MANUAL DIFFERENTIAL; LYMPHOCYTES % (MANUAL) 10 %; NEUTROPHILS # (MANUAL) 7.8 10^3/uL (1.5-6.6); PLATELET ESTIMATE, MANUAL NORMAL (130-450,000) (NORMAL); PLATELET MORPHOLOGY NORMAL APPEARANCE (NORMAL); RBC MORPHOLOGY (MULTIPLE) NORMAL APPEARANCE (NORMAL); WBC MORPHOLOGY (MULTIPLE) NORMAL APPEARANCE (NORMAL)
[2022-04-05] MEDS: NEUTRA-PHOS 250 MG TABLET PO SCH ×2 (06:50→08:31)
[2022-04-05] MEDS ORDERED: CALCIUM GLUCONATE IN NS 0.9% 2,000 MG/100 ML BAG IV ONE ×2 (07:00→23:40)
[2022-04-05] MEDS: PRENATAL VITAMIN TABLET PO SCH (08:31)
[2022-04-05] MEDS: ENOXAPARIN 40 MG/0.4 ML SYRINGE SUBQ SCH (08:32)
[2022-04-05] MEDS: lisinopriL 5 MG TABLET PO SCH (08:32)
[2022-04-05] MEDS ORDERED: SODIUM CHLORIDE 3% HYPERTONIC 500 ML IV SCH (12:30)
[2022-04-05] MEDS: NICOTINE 14 MG PATCH TOP SCH (12:31)
--- NOTE | 2022-04-05 12:34 | PHARMACY PROGRESS NOTE ---
- Best Possible Medication History Admit Date and Time: 04/04/22 1540 Processed by: Pharmacy Medication History completed: Yes Patient Interview: Completed Secondary Source(s): Insurance records As the person ultimately responsible for medication therapy, providers are able to order a medication from an existing home medication list in [facility] via the "Reconcile Routine" prior to Confirmation of that medication by production support manager. Such practice is discouraged except when the physician, in their clinical judgment, deems that a medical need exists for a medication without regard to previous use.
[2022-04-05 14:08] LABS: OSMOLALITY 230 mOsmol/kg (280-301); OSMOLALITY URINE 518 mOsmol/kg (.)
--- NOTE | 2022-04-05 14:48 | PROVIDER PROGRESS NOTE ---
Subjective - Prog Note Date Prog Note Date: 04/05/22 Prog Note Time: 14:46 - Subjective Subjective: This morning he was sitting up in bed, voice was hoarse. Asking for washcloth to wash his face. He said that he knew where he was. He was in the hospital in [place] and that he quickly corrected himself and said Deanna. He could not quite remember why he was here. And he said that he was sure his would be willing to tell him why he was here and he was not going to agree with her. She really has no recollection of the last few days. I explained to him what patricia laboy was. He came in with a sodium of 106, and given 100 mL of hypertonic saline and he was stated 106. I then started him on a another round of hypertonic saline. He went to 110, and was 114 at 430 this morning. I stopped his hypertonic saline and waited. At noon he is 117. Current Medications - Current Medications Current Medications: Active Medications Acetaminophen (Acetaminophen 325 Mg Tablet) 650 mg PO Q4HR PRN PRN Reason: Pain 1 to 4, or Fever Albuterol/Ipratropium (Ipratropium/Albuterol 3 Ml Neb) 3 ml INH Q4HR PRN PRN Reason: Wheezing Enoxaparin Sodium (Enoxaparin 40 Mg/0.4 Ml Syringe) 40 mg SUBQ DAILY [facility] Last Admin: 04/05/22 08:32 Dose: 40 mg Sodium Chloride (Normal Saline 0.9%) 1,000 mls @ 83.333 mls/hr IV .Q12H [facility] Lisinopril (Lisinopril 5 Mg Tablet) 5 mg PO DAILY [facility] Last Admin: 04/05/22 08:32 Dose: 5 mg Multi-Ingredient Ointment (Zinc Oxide 20% Oint 30 Gm Tube) 1 applic TOP PRN PRN PRN Reason: Skin Care Last Admin: 04/05/22 00:36 Dose: 1 applic Nicotine (Nicotine 14 Mg Patch) 1 patch TOP DAILY [facility] Last Admin: 04/05/22 12:31 Dose: 1 patch Ondansetron HCl (Ondansetron Odt 4 Mg Tablet) 4 mg TL Q6HR PRN PRN Reason: Nausea / Vomiting Ondansetron HCl (Ondansetron 4 Mg/2 Ml Vial) 4 mg IVP Q6HR PRN PRN Reason: Nausea / Vomiting Oxycodone HCl (Oxycodone 5 Mg Tablet) 5 mg PO Q4HR PRN PRN Reason: Pain 5 to 7 Multivit/Folic Acid/Iron ( Vitamin Tablet) 1 tab PO DAILYWM [facility] Last Admin: 04/05/22 08:31 Dose: 1 tab Sodium Chloride (Sodium Chloride Flush 0.9% 10 Ml Syringe) 10 ml IVP 0100, 0900,1700 [facility] Last Admin: 04/05/22 08:32 Dose: 10 ml Sodium Chloride (Sodium Chloride Flush 0.9% 10 Ml Syringe) 10 ml IVP PRN PRN PRN Reason: NEEDED PER PROVIDER ORDERS Thiamine HCl (Thiamine 100 Mg Tablet) 100 mg PO DAILY [facility] Benazepril HCl 40 mg PO DAILY 06/11/17 Objective - Vital Signs/Intake & Output Reviewed Vital Signs: Yes Vital Signs: Vital Signs x48h Temp Pulse Resp BP Pulse Ox O2 Flow Rate 04/05/22 14:00 36.6 C 89 30 H 130/69 91 L 04/05/22 13:00 91 27 H 126/62 88 L 04/05/22 12:00 98 23 134/68 H 91 L 04/05/22 11:00 93 26 H 140/71 H 90 L 04/05/22 10:00 92 26 H 123/62 96 4 04/05/22 09:00 107 H 26 H 148/80 H 96 4 04/05/22 08:00 36.8 C 84 23 131/71 H 93 4 04/05/22 07:00 83 22 113/62 93 4 Intake & Output: Intake & Output 04/02/22 04/03/22 04/04/22 04/05/22 23:59 23:59 23:59 23:59 Intake Total 151 755.833 Output Total 250 100 Balance -99 655.833 - Objective General Appearance: positive: No acute distress, Alert, Other (Graft speaking, gravel voiced elderly gentleman with ortiz and disheveled hair) Eyes Bilateral: positive: PERRL, EOMI ENT: positive: No signs of dehydration Neck: positive: No JVD. negative: Stiff neck Respiratory: positive: No respiratory distress, Other (Initially he seems to have tubular breath sounds in the upper lung montoya, that he gives a good cough, and his lungs become clearer.). negative: Wheezes, Rales, Rhonchi Cardiovascular: positive: Regular rate & rhythm Abdomen: positive: Non-tender, No organomegaly, Nml bowel sounds, No distention Rectal: positive: Other (multiple liquids stools last night and this am) Skin: positive: Warm, Dry, Other (Sacral injury, not stage able) Extremities: positive: Full ROM, No pedal edema Neurologic/Psychiatric: positive: Oriented x3, CN's nml (2-12), Motor nml (but just diffusely weak, able to get into bedside chair) - Lab Results Fish Bones: 04/05/22 04:29 04/05/22 12:15 Other Labs: Lab Results x24hrs 04/05/22 04/05/22 04/05/22 Range/Units 12:15 04:29 04:29 WBC (4.8-10.8) x10^3/uL RBC (4.70-6.10) 10^6/uL Hgb (14.0-18.0) g/dL Hct (42.0-52.0) % MCV (80.0-94.0) fL MCH (27.0-31.0) pg MCHC (32.0-36.0) g/dL RDW (12.0-15.0) % Plt Count (130-450) 10^3/uL MPV (7.4-11.4) fL Neut # (Auto) Lymph # (Auto) Hale # (Auto) Eos # (Auto) Baso # (Auto) Absolute Nucleated RBC Total Counted Band Neuts % (Manual) (0 - 10) % Abnorm Lymph % (Manual) % Nucleated RBC % Neutrophils # (Manual) (1.5-6.6) 10^3/uL Lymphocytes # (Manual) (1.5-3.5) 10^3/uL Monocytes # (Manual) (0.0-1.0) 10^3/uL Eosinophils # (Manual) (0-0.7) 10^3/uL Basophils # (Manual) (0-0.1) 10^3/uL Differential Comment WBC Morphology (NORMAL) Platelet Estimate (NORMAL) Platelet Morphology (NORMAL) RBC Morph Micro Appear (NORMAL) VBG pH 7.425 H (7.31-7.41) Ionized Calcium 0.95 L (1.15-1.33) mmol/L Sodium 117 L* (135-145) mmol/L Potassium (3.5-5.0) mmol/L Chloride (101-111) mmol/L Carbon Dioxide (21-32) mmol/L Anion Gap (6-13) BUN (6-20) mg/dL Creatinine (0.6-1.2) mg/dL Estimated GFR (MDRD) (>89) Glucose (70-100) mg/dL Serum Osmolality (280-301) mOsmol/kg Calcium (8.5-10.3) mg/dL Phosphorus 2.0 L (2.5-4.6) mg/dL Magnesium 2.0 (1.7-2.8) mg/dL CK-MB (CK-2) (0.6-6.3) ng/mL Urine Color Urine Clarity (CLEAR) Urine pH (5.0-7.5) PH Ur Specific [place] (1.002-1.030) Urine Protein (NEGATIVE) mg/dL Urine Glucose (UA) (NEGATIVE) mg/dL Urine Ketones (NEGATIVE) mg/dL Urine Occult Blood (NEGATIVE) Urine Nitrite (NEGATIVE) Urine Bilirubin (NEGATIVE) Urine Urobilinogen (NORMAL) E.U./dL Ur Leukocyte Esterase (NEGATIVE) Ur Microscopic Review Urine Culture Comments Urine Osmolality (.) mOsmol/kg Nasal Adenovirus (PCR) Nasal B. parapertussis DNA (PCR) Nasal Coronavir 229E PCR Nasal Coronavir HKU1 PCR Nasal Coronavir NL63 PCR Nasal Coronavir OC43 PCR Nasal Enterovir/Rhinovir PCR Nasal Influ A H1 2009 PCR Nasal Influenza B PCR Nasal Parainfluen 1 PCR Nasal Parainfluen 2 PCR Nasal Parainfluen 3 PCR Nasal Parainfluen 4 PCR Nasal RSV (PCR) Nasal Screen MRSA (PCR) (NEGATIVE) Nasal B.pertussis DNA PCR Nasal C.pneumoniae (PCR) Mitchell Human Metapneumo PCR Nasal M.pneumoniae (PCR) Nasal SARS-CoV-2 (PCR) Urine Opiates Screen (NEGATIVE) Ur Oxycodone Screen (NEGATIVE) Urine Methadone Screen (NEGATIVE) Ur Propoxyphene Screen (NEGATIVE) Ur Barbiturates Screen (NEGATIVE) Ur Tricyclics Screen (NEGATIVE) Ur Phencyclidine Scrn (NEGATIVE) Ur Amphetamine Screen (NEGATIVE) U Methamphetamines Scrn (NEGATIVE) U Benzodiazepines Scrn (NEGATIVE) Urine Cocaine Screen (NEGATIVE) U Cannabinoids Screen (NEGATIVE) 04/05/22 04/05/22 04/05/22 Range/Units 04:29 04:29 04:29 WBC 9.8 (4.8-10.8) x10^3/uL RBC 4.05 L (4.70-6.10) 10^6/uL Hgb 13.5 L (14.0-18.0) g/dL Hct 36.8 L (42.0-52.0) % MCV 90.9 (80.0-94.0) fL MCH 33.3 H (27.0-31.0) pg MCHC 36.7 H (32.0-36.0) g/dL RDW 11.9 L (12.0-15.0) % Plt Count 142 (130-450) 10^3/uL MPV 9.9 (7.4-11.4) fL Neut # (Auto) Not Reportable Lymph # (Auto) Not Reportable Hale # (Auto) Not Reportable Eos # (Auto) Not Reportable Baso # (Auto) Not Reportable Absolute Nucleated RBC Not Reportable Total Counted 100 Band Neuts % (Manual) 3 (0 - 10) % Abnorm Lymph % (Manual) 0 % Nucleated RBC % Not Reportable Neutrophils # (Manual) 7.8 H (1.5-6.6) 10^3/uL Lymphocytes # (Manual) 1.0 L (1.5-3.5) 10^3/uL Monocytes # (Manual) 1.0 (0.0-1.0) 10^3/uL Eosinophils # (Manual) 0.0 (0-0.7) 10^3/uL Basophils # (Manual) 0.0 (0-0.1) 10^3/uL Differential Comment MANUAL DIFFERENTIAL WBC Morphology NORMAL APPEARANCE (NORMAL) Platelet Estimate NORMAL (130-450,000) (NORMAL) Platelet Morphology NORMAL APPEARANCE (NORMAL) RBC Morph Micro Appear NORMAL APPEARANCE (NORMAL) VBG pH (7.31-7.41) Ionized Calcium (1.15-1.33) mmol/L Sodium 114 L* (135-145) mmol/L Potassium 3.4 L (3.5-5.0) mmol/L Chloride 81 L (101-111) mmol/L Carbon Dioxide 25 (21-32) mmol/L Anion Gap 8.0 (6-13) BUN 14 (6-20) mg/dL Creatinine 0.6 (0.6-1.2) mg/dL Estimated GFR (MDRD) 134 (>89) Glucose 84 (70-100) mg/dL Serum Osmolality (280-301) mOsmol/kg Calcium 7.1 L (8.5-10.3) mg/dL Phosphorus (2.5-4.6) mg/dL Magnesium (1.7-2.8) mg/dL CK-MB (CK-2) 7.8 H (0.6-6.3) ng/mL Urine Color Urine Clarity (CLEAR) Urine pH (5.0-7.5) PH Ur Specific [place] (1.002-1.030) Urine Protein (NEGATIVE) mg/dL Urine Glucose (UA) (NEGATIVE) mg/dL Urine Ketones (NEGATIVE) mg/dL Urine Occult Blood (NEGATIVE) Urine Nitrite (NEGATIVE) Urine Bilirubin (NEGATIVE) Urine Urobilinogen (NORMAL) E.U./dL Ur Leukocyte Esterase (NEGATIVE) Ur Microscopic Review Urine Culture Comments Urine Osmolality (.) mOsmol/kg Nasal Adenovirus (PCR) Nasal B. parapertussis DNA (PCR) Nasal Coronavir 229E PCR Nasal Coronavir HKU1 PCR Nasal Coronavir NL63 PCR Nasal Coronavir OC43 PCR Nasal Enterovir/Rhinovir PCR Nasal Influ A H1 2009 PCR Nasal Influenza B PCR Nasal Parainfluen 1 PCR Nasal Parainfluen 2 PCR Nasal Parainfluen 3 PCR Nasal Parainfluen 4 PCR Nasal RSV (PCR) Nasal Screen MRSA (PCR) (NEGATIVE) Nasal B.pertussis DNA PCR Nasal C.pneumoniae (PCR) Mitchell Human Metapneumo PCR Nasal M.pneumoniae (PCR) Nasal SARS-CoV-2 (PCR) Urine Opiates Screen (NEGATIVE) Ur Oxycodone Screen (NEGATIVE) Urine Methadone Screen (NEGATIVE) Ur Propoxyphene Screen (NEGATIVE) Ur Barbiturates Screen (NEGATIVE) Ur Tricyclics Screen (NEGATIVE) Ur Phencyclidine Scrn (NEGATIVE) Ur Amphetamine Screen (NEGATIVE) U Methamphetamines Scrn (NEGATIVE) U Benzodiazepines Scrn (NEGATIVE) Urine Cocaine Screen (NEGATIVE) U Cannabinoids Screen (NEGATIVE) 04/05/22 04/04/22 04/04/22 Range/Units 00:23 23:30 16:05 WBC (4.8-10.8) x10^3/uL RBC (4.70-6.10) 10^6/uL Hgb (14.0-18.0) g/dL Hct (42.0-52.0) % MCV (80.0-94.0) fL MCH (27.0-31.0) pg MCHC (32.0-36.0) g/dL RDW (12.0-15.0) % Plt Count (130-450) 10^3/uL MPV (7.4-11.4) fL Neut # (Auto) Lymph # (Auto) Hale # (Auto) Eos # (Auto) Baso # (Auto) Absolute Nucleated RBC Total Counted Band Neuts % (Manual) (0 - 10) % Abnorm Lymph % (Manual) % Nucleated RBC % Neutrophils # (Manual) (1.5-6.6) 10^3/uL Lymphocytes # (Manual) (1.5-3.5) 10^3/uL Monocytes # (Manual) (0.0-1.0) 10^3/uL Eosinophils # (Manual) (0-0.7) 10^3/uL Basophils # (Manual) (0-0.1) 10^3/uL Differential Comment WBC Morphology (NORMAL) Platelet Estimate (NORMAL) Platelet Morphology (NORMAL) RBC Morph Micro Appear (NORMAL) VBG pH (7.31-7.41) Ionized Calcium (1.15-1.33) mmol/L Sodium 110 L* (135-145) mmol/L Potassium (3.5-5.0) mmol/L Chloride (101-111) mmol/L Carbon Dioxide (21-32) mmol/L Anion Gap (6-13) BUN (6-20) mg/dL Creatinine (0.6-1.2) mg/dL Estimated GFR (MDRD) (>89) Glucose (70-100) mg/dL Serum Osmolality 230 L (280-301) mOsmol/kg Calcium (8.5-10.3) mg/dL Phosphorus (2.5-4.6) mg/dL Magnesium (1.7-2.8) mg/dL CK-MB (CK-2) (0.6-6.3) ng/mL Urine Color Urine Clarity (CLEAR) Urine pH (5.0-7.5) PH Ur Specific [place] (1.002-1.030) Urine Protein (NEGATIVE) mg/dL Urine Glucose (UA) (NEGATIVE) mg/dL Urine Ketones (NEGATIVE) mg/dL Urine Occult Blood (NEGATIVE) Urine Nitrite (NEGATIVE) Urine Bilirubin (NEGATIVE) Urine Urobilinogen (NORMAL) E.U./dL Ur Leukocyte Esterase (NEGATIVE) Ur Microscopic Review Urine Culture Comments Urine Osmolality 518 (.) mOsmol/kg Nasal Adenovirus (PCR) Nasal B. parapertussis DNA (PCR) Nasal Coronavir 229E PCR Nasal Coronavir HKU1 PCR Nasal Coronavir NL63 PCR Nasal Coronavir OC43 PCR Nasal Enterovir/Rhinovir PCR Nasal Influ A H1 2009 PCR Nasal Influenza B PCR Nasal Parainfluen 1 PCR Nasal Parainfluen 2 PCR Nasal Parainfluen 3 PCR Nasal Parainfluen 4 PCR Nasal RSV (PCR) Nasal Screen MRSA (PCR) NEGATIVE (NEGATIVE) Nasal B.pertussis DNA PCR Nasal C.pneumoniae (PCR) Mitchell Human Metapneumo PCR Nasal M.pneumoniae (PCR) Nasal SARS-CoV-2 (PCR) Urine Opiates Screen (NEGATIVE) Ur Oxycodone Screen (NEGATIVE) Urine Methadone Screen (NEGATIVE) Ur Propoxyphene Screen (NEGATIVE) Ur Barbiturates Screen (NEGATIVE) Ur Tricyclics Screen (NEGATIVE) Ur Phencyclidine Scrn (NEGATIVE) Ur Amphetamine Screen (NEGATIVE) U Methamphetamines Scrn (NEGATIVE) U Benzodiazepines Scrn (NEGATIVE) Urine Cocaine Screen (NEGATIVE) U Cannabinoids Screen (NEGATIVE) 04/04/22 04/04/22 04/04/22 Range/Units 16:05 15:13 12:24 WBC (4.8-10.8) x10^3/uL RBC (4.70-6.10) 10^6/uL Hgb (14.0-18.0) g/dL Hct (42.0-52.0) % MCV (80.0-94.0) fL MCH (27.0-31.0) pg MCHC (32.0-36.0) g/dL RDW (12.0-15.0) % Plt Count (130-450) 10^3/uL MPV (7.4-11.4) fL Neut # (Auto) Lymph # (Auto) Hale # (Auto) Eos # (Auto) Baso # (Auto) Absolute Nucleated RBC Total Counted Band Neuts % (Manual) (0 - 10) % Abnorm Lymph % (Manual) % Nucleated RBC % Neutrophils # (Manual) (1.5-6.6) 10^3/uL Lymphocytes # (Manual) (1.5-3.5) 10^3/uL Monocytes # (Manual) (0.0-1.0) 10^3/uL Eosinophils # (Manual) (0-0.7) 10^3/uL Basophils # (Manual) (0-0.1) 10^3/uL Differential Comment WBC Morphology (NORMAL) Platelet Estimate (NORMAL) Platelet Morphology (NORMAL) RBC Morph Micro Appear (NORMAL) VBG pH (7.31-7.41) Ionized Calcium (1.15-1.33) mmol/L Sodium 106 L* (135-145) mmol/L Potassium (3.5-5.0) mmol/L Chloride (101-111) mmol/L Carbon Dioxide (21-32) mmol/L Anion Gap (6-13) BUN (6-20) mg/dL Creatinine (0.6-1.2) mg/dL Estimated GFR (MDRD) (>89) Glucose (70-100) mg/dL Serum Osmolality (280-301) mOsmol/kg Calcium (8.5-10.3) mg/dL Phosphorus (2.5-4.6) mg/dL Magnesium (1.7-2.8) mg/dL CK-MB (CK-2) (0.6-6.3) ng/mL Urine Color DARK YELLOW Urine Clarity CLEAR (CLEAR) Urine pH 6.0 (5.0-7.5) PH Ur Specific [place] 1.015 (1.002-1.030) Urine Protein NEGATIVE (NEGATIVE) mg/dL Urine Glucose (UA) NEGATIVE (NEGATIVE) mg/dL Urine Ketones 15 H (NEGATIVE) mg/dL Urine Occult Blood NEGATIVE (NEGATIVE) Urine Nitrite NEGATIVE (NEGATIVE) Urine Bilirubin NEGATIVE (NEGATIVE) Urine Urobilinogen 0.2 (NORMAL) (NORMAL) E.U./dL Ur Leukocyte Esterase NEGATIVE (NEGATIVE) Ur Microscopic Review NOT INDICATED Urine Culture Comments NOT INDICATED Urine Osmolality (.) mOsmol/kg Nasal Adenovirus (PCR) NOT DETECTED Nasal B. parapertussis DNA (PCR) NOT DETECTED Nasal Coronavir 229E PCR NOT DETECTED Nasal Coronavir HKU1 PCR NOT DETECTED Nasal Coronavir NL63 PCR NOT DETECTED Nasal Coronavir OC43 PCR NOT DETECTED Nasal Enterovir/Rhinovir PCR NOT DETECTED Nasal Influ A H1 2009 PCR DETECTED A Nasal Influenza B PCR NOT DETECTED Nasal Parainfluen 1 PCR NOT DETECTED Nasal Parainfluen 2 PCR NOT DETECTED Nasal Parainfluen 3 PCR NOT DETECTED Nasal Parainfluen 4 PCR NOT DETECTED Nasal RSV (PCR) NOT DETECTED Nasal Screen MRSA (PCR) (NEGATIVE) Nasal B.pertussis DNA PCR NOT DETECTED Nasal C.pneumoniae (PCR) NOT DETECTED Mitchell Human Metapneumo PCR NOT DETECTED Nasal M.pneumoniae (PCR) NOT DETECTED Nasal SARS-CoV-2 (PCR) NOT DETECTED Urine Opiates Screen NEGATIVE (NEGATIVE) Ur Oxycodone Screen NEGATIVE (NEGATIVE) Urine Methadone Screen NEGATIVE (NEGATIVE) Ur Propoxyphene Screen NEGATIVE (NEGATIVE) Ur Barbiturates Screen NEGATIVE (NEGATIVE) Ur Tricyclics Screen NEGATIVE (NEGATIVE) Ur Phencyclidine Scrn NEGATIVE (NEGATIVE) Ur Amphetamine Screen NEGATIVE (NEGATIVE) U Methamphetamines Scrn NEGATIVE (NEGATIVE) U Benzodiazepines Scrn NEGATIVE (NEGATIVE) Urine Cocaine Screen NEGATIVE (NEGATIVE) U Cannabinoids Screen NEGATIVE (NEGATIVE) ABX Reporting Has patient been on IV antibiotics over the past 48 hours?: No Assessment/Plan - Problem List (1) Hyponatremia Impression: Most likely in the setting of excessive beer intake, and poor nutrition. 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 Plan: He is correcting just a bit above what I would feel comfortable with. I have been using hypertonic saline. I prefer to use hypertonic saline when the patient is obtunded, or at risk of seizures. Now that he is awake, verbal, and able to take p.o., I will stop hypertonic saline. And change him over to 0.9 normal saline. Continue to check sodium every 6 hours. Goal is no more than 6 to 8 mEq in a 24-hour rise. Urine and serum osmolality have been ordered. They will be sent out labs. If his sodium rises too rapidly, I will switch over to D5 to bring the sodium within that range goal of 8 mEq in 24 hours. He has generalized muscle weakness as would be expected with his syndrome. I will order PT and OT. He may need to go to SNF for rehab if he is too weak to be able to get up and walk on his own (2) Alcoholism Conclusion/Plan: He has not had a beer in a few days. The has always been concerned about stopping his beer drinking by restricting it, because she felt he would go into withdrawal and possibly have seizures and . But he has not had a beer in for 5 days. So far no tremors, no tachycardia, no hypertension. Plan: Thiamine in the ER. I cannot give him D5 with a banana bag because of the sodium. Now that he is awake, and can take p.o., he will be started on vitamin, and p.o. thiamine I recommend telling his that she can safely stop buying him beer once he goes home. (3) Rhabdomyolysis Conclusion/Plan: Unfortunately we cannot give him aggressive IV fluids because of the hyponatremia. But we will continue to monitor this. Between the normal saline and hypertonic saline his CK should go down. Plan: I failed to order a lab this am, will do so now and review. Qualifiers: Rhabdomyolysis type: non-traumatic Qualified Code(s): M62.82 - Rhabdomyolys is (4) COPD (chronic obstructive pulmonary disease) Conclusion/Plan: He presented is 99% on room air. Throughout the day he has been 93 to 94%. No wheezing. He does have a prolonged and exhalation phase. He is not on any bronchodilators at home. He appears to be without exacerbation. Plan: Solu-Medrol. This may help him with sodium. DuoNeb 4 times daily as needed Qualifiers: COPD type: emphysema Emphysema type: unspecified Qualified Code(s): J43.9 - Emphysema, unspecified (5) Hypertension Conclusion/Plan: He takes benazepril at home. On lisinopril for here. Qualifiers: Hypertension type: primary hypertension Qualified Code(s): I10 - Essential (primary) hypertension (5) Hypertension Qualifiers: Hypertension type: primary hypertension Qualified Code(s): I10 - Essential (primary) hypertension
[2022-04-05] MEDS: SODIUM CHLORIDE 0.9% 1,000 ML IV SCH (15:38)
[2022-04-05] MEDS: THIAMINE 100 MG TABLET PO SCH (15:38)
[2022-04-05] MEDS: methylPREDNISolone SUCCINATE 40 MG/ML VIAL IVP SCH ×2 (15:38→22:00)
[2022-04-05 19:31] LABS: FECAL OCCULT BLOOD (FIT) POSITIVE (NEGATIVE)
[2022-04-05 23:34] LABS: CALCIUM, IONIZED 0.98 mmol/L (1.15-1.33); VBG PH 7.485 (7.31-7.41)
[2022-04-06] MEDS: POTASSIUM CHLORIDE 20 MEQ TABLET PO SCH ×2 (00:05→01:30)
[2022-04-06] MEDS: SODIUM CHLORIDE FLUSH 0.9% 10 ML SYRINGE IVP SCH ×3 (00:07→18:58)
[2022-04-06] MEDS: SODIUM CHLORIDE 0.9% 1,000 ML IV SCH (02:42)
[2022-04-06 04:57] LABS: BASOPHILS % (AUTO) 0.2 %; EOSINOPHILS % (AUTO) 0.3 %; HCT - HEMATOCRIT 32.1 % (42.0-52.0); HGB - HEMOGLOBIN 11.3 g/dL (14.0-18.0); LYMPHOCYTES # (AUTO) 0.5 10^3/uL (1.5-3.5); LYMPHOCYTES % (AUTO) 7.6 %; MEAN CORPUSCULAR HEMOGLOBIN 32.8 pg (27.0-31.0); MEAN CORPUSCULAR HGB CONC 35.2 g/dL (32.0-36.0); MEAN CORPUSCULAR VOLUME 93.3 fL (80.0-94.0); MEAN PLATELET VOLUME 9.5 fL (7.4-11.4); MONOCYTES # (AUTO) 0.3 10^3/uL (0.0-1.0); MONOCYTES % (AUTO) 5.4 %; NEUTROPHILS # (AUTO) 5.2 10^3/uL (1.5-6.6); NEUTROPHILS % (AUTO) 84.9 %; PLT - PLATELET COUNT 147 10^3/uL (130-450); RED BLOOD COUNT 3.44 10^6/uL (4.70-6.10); RED CELL DISTRIBUTION WIDTH 12.5 % (12.0-15.0); WHITE BLOOD COUNT 6.2 x10^3/uL (4.8-10.8)
[2022-04-06 05:10] LABS: CALCIUM, IONIZED 1.09 mmol/L (1.15-1.33); VBG PH 7.451 (7.31-7.41)
[2022-04-06 05:24] LABS: CALCIUM 7.9 mg/dL (8.5-10.3); CREATININE 0.5 mg/dL (0.6-1.2); MAGNESIUM 2.1 mg/dL (1.7-2.8); PHOSPHORUS 2.6 mg/dL (2.5-4.6); POTASSIUM 3.8 mmol/L (3.5-5.0)
[2022-04-06] MEDS ORDERED: POTASSIUM CHLORIDE 20 MEQ TABLET PO ONE (05:35)
[2022-04-06] MEDS: CALCIUM CARBONATE CHEW 500 MG TABLET PO SCH ×2 (05:50→10:20)
[2022-04-06] MEDS: methylPREDNISolone SUCCINATE 40 MG/ML VIAL IVP SCH (05:51)
[2022-04-06] MEDS: NICOTINE 14 MG PATCH TOP SCH (08:06)
[2022-04-06] MEDS: ENOXAPARIN 40 MG/0.4 ML SYRINGE SUBQ SCH (08:06)
[2022-04-06] MEDS: THIAMINE 100 MG TABLET PO SCH (08:06)
[2022-04-06] MEDS: PRENATAL VITAMIN TABLET PO SCH (08:06)
[2022-04-06] MEDS: lisinopriL 5 MG TABLET PO SCH (08:06)
--- NOTE | 2022-04-06 10:54 | PROVIDER PROGRESS NOTE ---
Subjective - Prog Note Date Prog Note Date: 04/06/22 Prog Note Time: 10:53 - Subjective Subjective: He is up with assistance by the nurse. He is using a walker to get to the bathroom. He has been having liquid stools that are slowing down. They are ariel k and liquid. They are C. difficile negative. Guaiac positive. His hemoglobin has been drifting down a bit and is dropped 3 g slowly. He complains of a cough and he wants the Mucinex. I asked him how he is doing with his weakness. And he says that he is doing a little bit better here than he does at home. He is very sarcastic when he says "the therapist at home said that I was fine and discharge me" but he says that he is way weaker at home than he is here. has been speaking to nursing. She is relieved that he got through this phase of no drinking without going through withdrawal. When he goes home, she is adamant that she will not be buying him any more beer. Current Medications - Current Medications Current Medications: Active Medications Acetaminophen (Acetaminophen 325 Mg Tablet) 650 mg PO Q4HR PRN PRN Reason: Pain 1 to 4, or Fever Albuterol/Ipratropium (Ipratropium/Albuterol 3 Ml Neb) 3 ml INH Q4HR PRN PRN Reason: Wheezing Enoxaparin Sodium (Enoxaparin 40 Mg/0.4 Ml Syringe) 40 mg SUBQ DAILY [facility] Last Admin: 04/06/22 08:06 Dose: 40 mg Lisinopril (Lisinopril 5 Mg Tablet) 5 mg PO DAILY [facility] Last Admin: 04/06/22 08:06 Dose: 5 mg Multi-Ingredient Ointment (Zinc Oxide 20% Oint 30 Gm Tube) 1 applic TOP PRN PRN PRN Reason: Skin Care Last Admin: 04/05/22 00:36 Dose: 1 applic Nicotine (Nicotine 14 Mg Patch) 1 patch TOP DAILY [facility] Last Admin: 04/06/22 08:06 Dose: 1 patch Ondansetron HCl (Ondansetron Odt 4 Mg Tablet) 4 mg TL Q6HR PRN PRN Reason: Nausea / Vomiting Ondansetron HCl (Ondansetron 4 Mg/2 Ml Vial) 4 mg IVP Q6HR PRN PRN Reason: Nausea / Vomiting Oxycodone HCl (Oxycodone 5 Mg Tablet) 5 mg PO Q4HR PRN PRN Reason: Pain 5 to 7 Multivit/Folic Acid/Iron ( Vitamin Tablet) 1 tab PO DAILYWM [facility] Last Admin: 04/06/22 08:06 Dose: 1 tab Sodium Chloride (Sodium Chloride Flush 0.9% 10 Ml Syringe) 10 ml IVP 0100,0900,1700 [facility] Last Admin: 04/06/22 08:06 Dose: 10 ml Sodium Chloride (Sodium Chloride Flush 0.9% 10 Ml Syringe) 10 ml IVP PRN PRN PRN Reason: NEEDED PER PROVIDER ORDERS Thiamine HCl (Thiamine 100 Mg Tablet) 100 mg PO DAILY [facility] Last Admin: 04/06/22 08:06 Dose: 100 mg Benazepril HCl 40 mg PO DAILY 06/11/17 Objective - Vital Signs/Intake & Output Reviewed Vital Signs: Yes Vital Signs: Vital Signs x48h Temp Pulse Resp BP Pulse Ox O2 Flow Rate 04/06/22 08:00 36.9 C 100 20 161/87 H 89 L 04/06/22 07:00 90 26 H 180/66 H 92 2 04/06/22 06:00 82 19 150/71 H 94 2 04/06/22 05:00 80 22 155/69 H 95 2 04/06/22 04:00 36.5 C 79 24 144/71 H 96 2 04/06/22 03:00 90 22 142/78 H 95 2 Intake & Output: Intake & Output 04/03/22 04/04/22 04/05/22 04/06/22 23:59 23:59 23:59 23:59 Intake Total 151 7255.261 2535.219 Output Total 250 1000 750 Balance -99 425.833 732.219 - Objective General Appearance: positive: No acute distress, Alert (Elderly gentleman, cachectic), Other (Holding on further like to that walker. Slightly hunched over. Shuffling gait. Standby assist.) Eyes Bilateral: positive: PERRL, EOMI ENT: positive: No signs of dehydration Neck: positive: No JVD. negative: Stiff neck Respiratory: positive: No respiratory distress, Rhonchi (Both times he gives a big cough, brings up phlegm, and the rhonchi disappear). negative: Wheezes, Rales Cardiovascular: positive: Regular rate & rhythm, Systolic murmur Abdomen: positive: Non-tender, No organomegaly, Nml bowel sounds, No distention Skin: positive: Warm, Dry Extremities: positive: Full ROM, No pedal edema Neurologic/Psychiatric: positive: Oriented x3, CN's nml (2-12) (Mildly to moderately deaf), Motor nml (Except for the weakness, slightly shuffling gait. No focal deficits) - Lab Results Fish Bones: 04/06/22 04:22 04/06/22 04:22 Other Labs: Lab Results x24hrs 04/06/22 04/06/22 04/06/22 Range/Units 04:22 04:22 04:22 WBC 6.2 (4.8-10.8) x10^3/uL RBC 3.44 L (4.70-6.10) 10^6/uL Hgb 11.3 L (14.0-18.0) g/dL Hct 32.1 L (42.0-52.0) % MCV 93.3 (80.0-94.0) fL MCH 32.8 H (27.0-31.0) pg MCHC 35.2 (32.0-36.0) g/dL RDW 12.5 (12.0-15.0) % Plt Count 147 (130-450) 10^3/uL MPV 9.5 (7.4-11.4) fL Neut # (Auto) 5.2 (1.5-6.6) 10^3/uL Lymph # (Auto) 0.5 L (1.5-3.5) 10^3/uL [place] # (Auto) 0.3 (0.0-1.0) 10^3/uL Eos # (Auto) 0.0 (0.0-0.7) 10^3/uL Baso # (Auto) 0.0 (0.0-0.1) 10^3/uL Absolute Nucleated RBC 0.00 x10^3/uL Nucleated RBC % 0.0 /100WBC VBG pH 7.451 H (7.31-7.41) Ionized Calcium 1.09 L (1.15-1.33) mmol/L Sodium 126 L (135-145) mmol/L Potassium 3.8 (3.5-5.0) mmol/L Chloride 95 L (101-111) mmol/L Carbon Dioxide 24 (21-32) mmol/L Anion Gap 7.0 (6-13) BUN 14 (6-20) mg/dL Creatinine 0.5 L (0.6-1.2) mg/dL Estimated GFR (MDRD) 166 (>89) Glucose 177 H (70-100) mg/dL Serum Osmolality (280-301) mOsmol/kg Calcium 7.9 L (8.5-10.3) mg/dL Phosphorus 2.6 (2.5-4.6) mg/dL Magnesium 2.1 (1.7-2.8) mg/dL Total Creatine Kinase 501 H (22-269) IU/L Urine Osmolality (.) mOsmol/kg Stl Occult Blood (IFOB) (NEGATIVE) Stl C. diff Tox B Gene (NEGATIVE) 04/05/22 04/05/22 04/05/22 Range/Units 23:14 23:14 23:14 WBC (4.8-10.8) x10^3/uL RBC (4.70-6.10) 10^6/uL Hgb (14.0-18.0) g/dL Hct (42.0-52.0) % MCV (80.0-94.0) fL MCH (27.0-31.0) pg MCHC (32.0-36.0) g/dL RDW (12.0-15.0) % Plt Count (130-450) 10^3/uL MPV (7.4-11.4) fL Neut # (Auto) (1.5-6.6) 10^3/uL Lymph # (Auto) (1.5-3.5) 10^3/uL [place] # (Auto) (0.0-1.0) 10^3/uL Eos # (Auto) (0.0-0.7) 10^3/uL Baso # (Auto) (0.0-0.1) 10^3/uL Absolute Nucleated RBC x10^3/uL Nucleated RBC % /100WBC VBG pH 7.485 H (7.31-7.41) Ionized Calcium 0.98 L (1.15-1.33) mmol/L Sodium (135-145) mmol/L Potassium 3.4 L (3.5-5.0) mmol/L Chloride (101-111) mmol/L Carbon Dioxide (21-32) mmol/L Anion Gap (6-13) BUN (6-20) mg/dL Creatinine (0.6-1.2) mg/dL Estimated GFR (MDRD) (>89) Glucose (70-100) mg/dL Serum Osmolality (280-301) mOsmol/kg Calcium (8.5-10.3) mg/dL Phosphorus 2.7 (2.5-4.6) mg/dL Magnesium (1.7-2.8) mg/dL Total Creatine Kinase (22-269) IU/L Urine Osmolality (.) mOsmol/kg Stl Occult Blood (IFOB) (NEGATIVE) Stl C. diff Tox B Gene (NEGATIVE) 04/05/22 04/05/22 04/05/22 Range/Units 23:14 19:10 19:10 WBC (4.8-10.8) x10^3/uL RBC (4.70-6.10) 10^6/uL Hgb (14.0-18.0) g/dL Hct (42.0-52.0) % MCV (80.0-94.0) fL MCH (27.0-31.0) pg MCHC (32.0-36.0) g/dL RDW (12.0-15.0) % Plt Count (130-450) 10^3/uL MPV (7.4-11.4) fL Neut # (Auto) (1.5-6.6) 10^3/uL Lymph # (Auto) (1.5-3.5) 10^3/uL [place] # (Auto) (0.0-1.0) 10^3/uL Eos # (Auto) (0.0-0.7) 10^3/uL Baso # (Auto) (0.0-0.1) 10^3/uL Absolute Nucleated RBC x10^3/uL Nucleated RBC % /100WBC VBG pH (7.31-7.41) Ionized Calcium (1.15-1.33) mmol/L Sodium 120 L* (135-145) mmol/L Potassium (3.5-5.0) mmol/L Chloride (101-111) mmol/L Carbon Dioxide (21-32) mmol/L Anion Gap (6-13) BUN (6-20) mg/dL Creatinine (0.6-1.2) mg/dL Estimated GFR (MDRD) (>89) Glucose (70-100) mg/dL Serum Osmolality (280-301) mOsmol/kg Calcium (8.5-10.3) mg/dL Phosphorus (2.5-4.6) mg/dL Magnesium (1.7-2.8) mg/dL Total Creatine Kinase (22-269) IU/L Urine Osmolality (.) mOsmol/kg Stl Occult Blood (IFOB) POSITIVE A (NEGATIVE) Stl C. diff Tox B Gene NEGATIVE (NEGATIVE) 04/05/22 04/05/22 04/05/22 Range/Units 18:07 12:15 12:10 WBC (4.8-10.8) x10^3/uL RBC (4.70-6.10) 10^6/uL Hgb (14.0-18.0) g/dL Hct (42.0-52.0) % MCV (80.0-94.0) fL MCH (27.0-31.0) pg MCHC (32.0-36.0) g/dL RDW (12.0-15.0) % Plt Count (130-450) 10^3/uL MPV (7.4-11.4) fL Neut # (Auto) (1.5-6.6) 10^3/uL Lymph # (Auto) (1.5-3.5) 10^3/uL [place] # (Auto) (0.0-1.0) 10^3/uL Eos # (Auto) (0.0-0.7) 10^3/uL Baso # (Auto) (0.0-0.1) 10^3/uL Absolute Nucleated RBC x10^3/uL Nucleated RBC % /100WBC VBG pH (7.31-7.41) Ionized Calcium (1.15-1.33) mmol/L Sodium 120 L* 117 L* (135-145) mmol/L Potassium (3.5-5.0) mmol/L Chloride (101-111) mmol/L Carbon Dioxide (21-32) mmol/L Anion Gap (6-13) BUN (6-20) mg/dL Creatinine (0.6-1.2) mg/dL Estimated GFR (MDRD) (>89) Glucose (70-100) mg/dL Serum Osmolality (280-301) mOsmol/kg Calcium (8.5-10.3) mg/dL Phosphorus (2.5-4.6) mg/dL Magnesium (1.7-2.8) mg/dL Total Creatine Kinase 949 H (22-269) IU/L Urine Osmolality (.) mOsmol/kg Stl Occult Blood (IFOB) (NEGATIVE) Stl C. diff Tox B Gene (NEGATIVE) 04/04/22 Range/Units 16:05 WBC (4.8-10.8) x10^3/uL RBC (4.70-6.10) 10^6/uL Hgb (14.0-18.0) g/dL Hct (42.0-52.0) % MCV (80.0-94.0) fL MCH (27.0-31.0) pg MCHC (32.0-36.0) g/dL RDW (12.0-15.0) % Plt Count (130-450) 10^3/uL MPV (7.4-11.4) fL Neut # (Auto) (1.5-6.6) 10^3/uL Lymph # (Auto) (1.5-3.5) 10^3/uL [place] # (Auto) (0.0-1.0) 10^3/uL Eos # (Auto) (0.0-0.7) 10^3/uL Baso # (Auto) (0.0-0.1) 10^3/uL Absolute Nucleated RBC x10^3/uL Nucleated RBC % /100WBC VBG pH (7.31-7.41) Ionized Calcium (1.15-1.33) mmol/L Sodium (135-145) mmol/L Potassium (3.5-5.0) mmol/L Chloride (101-111) mmol/L Carbon Dioxide (21-32) mmol/L Anion Gap (6-13) BUN (6-20) mg/dL Creatinine (0.6-1.2) mg/dL Estimated GFR (MDRD) (>89) Glucose (70-100) mg/dL Serum Osmolality 230 L (280-301) mOsmol/kg Calcium (8.5-10.3) mg/dL Phosphorus (2.5-4.6) mg/dL Magnesium (1.7-2.8) mg/dL Total Creatine Kinase (22-269) IU/L Urine Osmolality 518 (.) mOsmol/kg Stl Occult Blood (IFOB) (NEGATIVE) Stl C. diff Tox B Gene (NEGATIVE) Assessment/Plan - Problem List (1) Hyponatremia Impression: Most likely in the setting of excessive beer intake, and poor nutrition. 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 He received 100 mL of hypertonic saline in the ED and stayed at 106 he came in on. I then started him on a 50 cc an hour drip of 500 mls of 3% NS. Monitored sodium carefully and he went from 106->110, to 114, and got to 117. I stopped the hypertonic saline and switch him over to normal saline since he was awake and appropriate. He was 120 on the next check. Stayed 120 at midnight last night. I Continued the normal saline drip and this morning he is 126. He does not have confusion. No lethargy. Just overall generalized muscle weakness. Plan: Stop normal saline drip Transfer from ICU to med Surg See how he does on fluid restriction of 1000 cc free water today. Regular diet. I will order home health. I think he intimates that he was discharged from home health but I will reorder it. I would like him to get a bath aide, PT and OT, and social media editor referral. His may need some help getting him through the next few weeks of not drinking. (2) Alcoholism Conclusion/Plan: He has not had a beer in a few days. The has always been concerned about stopping his beer drinking by restricting it, because she felt he would go into withdrawal and possibly have seizures and . But he has not had a beer for 5 days before admit. So far no tremors, no tachycardia, no hypertension. Plan: Thiamine in the ER. I cannot give him D5 with a banana bag because of the sodium. Now that he is awake, and can take p.o., he was started on vitamin, and p.o. thiamine (3) Rhabdomyolysis Conclusion/Plan: Unfortunately we cannot give him aggressive IV fluids because of the hyponatremia. But we will continue to monitor this. Between the normal saline and hypertonic saline his CK should go down. [id number]>> [id number]>> 501 this morning Plan: He is not really received a lot of hydration. He has come down on his own since my fluids are restricted. At this time I think this is a problem that we do not need to address anymore Qualifiers: Rhabdomyolysis type: non-traumatic Qualified Code(s): M62.82 - Rhabdomyol ysis (4) COPD (chronic obstructive pulmonary disease) Conclusion/Plan: He presented is 99% on room air. But as his admission has continued, now needing 02. No wheezing. NO new cough. He does have a prolonged and exhalation phase. He is not on any bronchodilators at home. He appears to be without exacerbation. Solu-Medrol 40 mg IV push every 8 hours was given for 3 doses.He still requires 2 L nasal cannula to maintain O2 sat at 92%. When we take off his oxygen he drops down to 89%. He is a longtime smoker. Most likely he does have an intermittent oxygen need. Plan: Oxygen desaturation study when he goes home. That may be tomorrow. Recheck CXR DuoNeb 4 times daily as needed Consider getting pulmonary function studies in the outpatient setting. That if he agrees. This gentleman has a history of refusing any type of intervention. Qualifiers: COPD type: emphysema Emphysema type: unspecified Qualified Code(s): J43.9 - Emphysema, unspecified (5) Hypertension Conclusion/Plan: He takes benazepril at home. He has been high here on his home medication. Yesterday and today he is consistently between 144 systolic and as high as 180 systolic. Zestril was 5 mg daily. Plan: Increase Zestril to 10 mg. Qualifiers: Hypertension type: primary hypertension Qualified Code(s): I10 - Essential (primary) hypertension (5) Hypertension Qualifiers: Hypertension type: primary hypertension Qualified Code(s): I10 - Essential (primary) hypertension
[2022-04-06] MEDS ORDERED: lisinopriL 5 MG TABLET PO STA (11:09)
[2022-04-06 11:35] LABS: ABSOLUTE RETICS # AUTO 0.039 10^6/uL (0.020-0.110); RED BLOOD COUNT 3.57 10^6/uL (4.70-6.10); RETICULOCYTE COUNT % (AUTO) 1.08 % (0.5-2.3)
[2022-04-06] MEDS: guaiFENesin 600 MG TABLET PO SCH ×2 (11:43→20:59)
[2022-04-06 11:57] LABS: % IRON SATURATION 39 % (20-50); IRON 77 ug/dL (45-182); TOTAL IRON BINDING CAPACITY 199 ug/dL (250-450); TRANSFERRIN 142 mg/dL (180-329)
[2022-04-06 12:13] LABS: FERRITIN 1453.3 ng/mL (23.9-336.2)
--- NOTE | 2022-04-06 17:21 | PROVIDER PROGRESS NOTE ---
Assessment/Plan - Problem List (1) Hyponatremia Assessment/Plan: Most likely due to excessive beer intake, and poor nutrition. This affects the kidney and causes dilutional hyponatremia secondary to reduced clearance of water from his body. 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 He received 100 mL of hypertonic saline in the ED and Na stayed at 106. Then we started him on Hypertonic NS. Monitored sodium carefully and he went from 106- >110>> 114>> 117. We then stopped the Hypertonic Saline and switch him over to Normal Saline since he was awake and appropriate. Na then was 120 >> 126 yesterday and this morning. Plan: See how he does on fluid restriction of 1000 cc free water daily. Regular diet. He is allowed to salt his food, and family wants to bring him a roast for Wilmer dinner tomorrow and I okayed that. We placed a home health referral to get a bath aide, PT and OT, and social media community manager. His may need some help getting him through the next few weeks of not drinking. (2) Alcoholism Conclusion/Plan: He has not had a beer in several days. The has always been concerned about stopping his beer drinking by restricting it suddenly, because she felt he would go into withdrawal and possibly have seizures and . Thiamine given in the ER. So far no tremors, no tachycardia, no hypertension as signs of withdrawal. Today I spoke to him with , daughter and son-in-law at bedside, that it will be hard to breaking that habit of 15 beers a day, since he has done that for many years, and he said he will "deal with it" and verbally promised to stop drinking so much, however, he was more interested in watching the movie on TV than our conversation. This gentleman has a history of refusing any type of intervention. Plan: Now that he can take p.o., he was started on vitamin, and p.o. thiamine Continue to watch for alcohol withdrawal with [facility] protocol Will ask for a SW consult to suggest more resources to stop alcohol abuse. (3) COPD (chronic obstructive pulmonary disease) Conclusion/Plan: He presented with saturation of 99% on room air. But as his admission has continued and he received fluids, he has needed some suppl 02. There is fine wheezing and a new cough. He is not on any bronchodilators at home. He appears to be without exacerbation. Solu-Medrol 40 mg IV push every 8 hours was given for 3 doses. He still requires 1-2 L nasal cannula to maintain O2 sat at 92%. When we take off his oxygen he drops down to 89%. He is a longtime smoker. Plan: Oxygen desaturation study planned on the day he is discharged DuoNeb 4 times daily as needed He will need pulmonary function studies in the outpatient setting. That if he agrees. This gentleman has a history of refusing any type of intervention. Qualifiers: COPD type: emphysema Emphysema type: unspecified Qualified Code(s): J43.9 - Emphysema, unspecified (4) Pneumonia Conclusion/Plan: He presented with a cough, has had a normal WBC, but his CXR at admission was read as having bilateral patchy infiltrates. He still has an unrelenting cough today. Plan: A CXR was repeated yesterday and showed bilateral infiltrates We added Robitussin AC for cough suppression. We ordered a sputum for culture [place] empiric po Zithromax and iv Ceftriaxone (5) Influenza infection He tested Influenza A (+) at admission. Plan: Will order Tamiflu (6) Hypertension Conclusion/Plan: He takes benazepril at home. Zestril was 5 mg daily and was increased yesterday to 10 mg to control HTN. Plan: Due to his dry cough, I will stop Zestril. Will start Losartan in it's place and will DCh home on this Qualifiers: Hypertension type: primary hypertension Qualified Code(s): I10 - Essential (primary) hypertension (7) Rhabdomyolysis Conclusion/Plan: The told me that pt falls frequently. We could not give him aggressive IV fluids at admission, because of the hypernatremia. After the normal saline and hypertonic saline, his CK is going down. CK 1788>> 949>> 501>> 200 today Plan: Since we are now restricting total fluids, will watch CK intermittently, so as not to let CK rise Qualifiers: Rhabdomyolysis type: non-traumatic Qualified Code(s): M62.82 - Rhabdomyolys is (8) Anemia with guaic positive stool His Iron panel showed low TIBC and Transferrin. He is already on a vitamin and on thiamine (and Thiamine level was not low) Plan: Follow H/H daily, if it is dropping now, it is no longer from hemodilution. Will stop Lovenox sq daily and use SCDs for DVT prophylaxis. Will start empiric Protonix po BID Depending on his desire to comply in the outpatient setting, he would need an outpatient colonoscopy and EGD, or as an Inpt if there is signs of a rapid bleed. (9) Tobacco use Reports smoking 1 pack a day, none since being admitted, is getting a Nicotine patch. Plan: Will start Wellbutrin (since son-in-law reports that pt is depressed and has nothing to do all day, which the pt agreed was true). I offered to continue nicotine patch at the time of discharge, he and the family all agreed it will be needed. - Current Meds Current Meds: Current Medications Generic Name Dose Route Start Last Admin Trade Name Freq PRN Reason Stop Dose Admin Enoxaparin Sodium 40 mg 04/05/22 09:00 04/06/22 08:06 Enoxaparin 40 Mg/0.4 Ml Syringe SUBQ 40 mg DAILY CHRISTI Administration Guaifenesin 600 mg 04/06/22 12:00 04/06/22 11:43 Guaifenesin 600 Mg Tablet PO 600 mg BID CHRISTI Administration Multi-Ingredient Ointment 1 applic 04/04/22 23:45 04/05/22 00:36 Zinc Oxide 20% Oint 30 Gm Tube TOP 1 applic PRN PRN Administration Skin Care Nicotine 1 patch 04/05/22 12:00 04/06/22 08:06 Nicotine 14 Mg Patch TOP 1 patch DAILY CHRISTI Administration Multivit/Folic Acid/Iron 1 tab 04/05/22 08:00 04/06/22 08:06 Vitamin Tablet PO 1 tab DAILYWM CHRISTI Administration Sodium Chloride 10 ml 04/04/22 17:00 04/06/22 08:06 Sodium Chloride Flush 0.9% 10 Ml Syringe IVP 10 ml 0100,0900,1700 CHRISTI Administration Thiamine HCl 100 mg 04/05/22 15:00 04/06/22 08:06 Thiamine 100 Mg Tablet PO 100 mg DAILY CHRISTI Administration - Lab Result Fish Bone Diagrams: 04/07/22 05:32 04/07/22 05:32 - Additional Planning My Orders: My Active Orders 04/06/22 16:20 Fluid Restriction [RC] QSHIFT 04/06/22 17:16 Chest 1 View X-Ray [XR] Stat 04/06/22 17:21 guaiFENesin/CODEINE [Robitussin AC] 5 ml PO Q6HR PRN 04/07/22 09:00 Losartan [Cozaar] 50 mg PO DAILY Subjective - Subjective Patient Reports: Cough (The cough has lessened ever since Robitussin started yesterday. He has no appetite. The nicotine patch is suppressing his urges to smoke.), Other (No appetitie) Objective Vital Signs: Vital Signs - 24 hr 04/05/22 04/05/22 04/05/22 18:00 19:00 20:00 Temperature 36.8 C Heart Rate [ Brachial] Heart Rate [ 93 78 79 Monitoring electrodes] Respiratory 24 21 23 Rate Blood Pressure 111/84 H 127/64 106/56 L [Left Brachial artery] O2 Saturation 90 L 93 88 L If not protocol : Oxygen Flow, liters/minute 04/05/22 04/05/22 04/05/22 21:00 22:00 23:00 Temperature Heart Rate [ Brachial] Heart Rate [ 89 79 88 Monitoring electrodes] Respiratory 20 21 24 Rate Blood Pressure 112/51 L 121/54 L 132/73 H [Left Brachial artery] O2 Saturation 91 L 93 91 L If not protocol 2 2 2 : Oxygen Flow, liters/minute 04/05/22 04/06/22 04/06/22 23:30 00:00 01:00 Temperature 36.5 C Heart Rate [ Brachial] Heart Rate [ 85 87 Monitoring electrodes] Respiratory 22 23 Rate Blood Pressure 128/73 141/73 H [Left Brachial artery] O2 Saturation 93 94 If not protocol 2 2 2 : Oxygen Flow, liters/minute 04/06/22 04/06/22 04/06/22 02:00 03:00 04:00 Temperature 36.5 C Heart Rate [ Brachial] Heart Rate [ 83 90 79 Monitoring electrodes] Respiratory 20 22 24 Rate Blood Pressure 145/69 H 142/78 H 144/71 H [Left Brachial artery] O2 Saturation 93 95 96 If not protocol 2 2 2 : Oxygen Flow, liters/minute 04/06/22 04/06/22 04/06/22 05:00 06:00 07:00 Temperature Heart Rate [ Brachial] Heart Rate [ 80 82 90 Monitoring electrodes] Respiratory 22 19 26 H Rate Blood Pressure 155/69 H 150/71 H 180/66 H [Left Brachial artery] O2 Saturation 95 94 92 If not protocol 2 2 2 : Oxygen Flow, liters/minute 04/06/22 04/06/22 04/06/22 08:00 14:40 16:37 Temperature 36.9 C 36.5 C Heart Rate [ 85 Brachial] Heart Rate [ 100 Monitoring electrodes] Respiratory 20 20 Rate Blood Pressure 161/87 H 138/53 H [Left Brachial artery] O2 Saturation 89 L 93 92 If not protocol : Oxygen Flow, liters/minute Oxygen O2 Source Room air I&O (Last 24 Hrs): Intake and Output Totals x24h 04/04/22 04/05/22 04/06/22 23:59 23:59 23:59 Intake Total 151 6739.779 3519.993 Output Total 250 1000 750 Balance -99 159.541 1604.993 General: Alert, Oriented x3, Other (Appears disheveled) HEENT: Mucous membr. moist/pink, Other (Appears much older than his age.) Neck: Supple, No JVD Neuro: Alert, Non Focal, Other (No asterixis, no nystagmus) Cardiovascular: Regular rate, No murmurs Respiratory: No respiratory distress, Wheezes Abdomen: Normal bowel sounds, Soft, No tenderness Extremities: No clubbing, No edema - Results Results: Laboratory Results WBC 6.2 x10^3/uL (4.8-10.8) 04/06/22 04:22 RBC 3.57 10^6/uL (4.70-6.10) L 04/06/22 11:25 Hgb 11.3 g/dL (14.0-18.0) L 04/06/22 04:22 Hct 32.1 % (42.0-52.0) L 04/06/22 04:22 MCV 93.3 fL (80.0-94.0) 04/06/22 04:22 MCH 32.8 pg (27.0-31.0) H 04/06/22 04:22 MCHC 35.2 g/dL (32.0-36.0) 04/06/22 04:22 RDW 12.5 % (12.0-15.0) 04/06/22 04:22 Plt Count 147 10^3/uL (130-450) 04/06/22 04:22 MPV 9.5 fL (7.4-11.4) 04/06/22 04:22 Reticulocyte % (Auto) 1.08 % (0.5-2.3) 04/06/22 11:25 Neut # (Auto) 5.2 10^3/uL (1.5-6.6) 04/06/22 04:22 Lymph # (Auto) 0.5 10^3/uL (1.5-3.5) L 04/06/22 04:22 Charles # (Auto) 0.3 10^3/uL (0.0-1.0) 04/06/22 04:22 Eos # (Auto) 0.0 10^3/uL (0.0-0.7) 04/06/22 04:22 Baso # (Auto) 0.0 10^3/uL (0.0-0.1) 04/06/22 04:22 Absolute Nucleated RBC 0.00 x10^3/uL 04/06/22 04:22 Total Counted 100 04/05/22 04:29 Band Neuts % (Manual) 3 % (0-10) 04/05/22 04:29 Reactive Lymphs % (Man) 2 % 04/04/22 12:03 Abnorm Lymph % (Manual) 0 % 04/05/22 04:29 Nucleated RBC % 0.0 /100WBC 04/06/22 04:22 Neutrophils # (Manual) 7.8 10^3/uL (1.5-6.6) H 04/05/22 04:29 Lymphocytes # (Manual) 1.0 10^3/uL (1.5-3.5) L 04/05/22 04:29 Monocytes # (Manual) 1.0 10^3/uL (0.0-1.0) 04/05/22 04:29 Eosinophils # (Manual) 0.0 10^3/uL (0-0.7) 04/05/22 04:29 Basophils # (Manual) 0.0 10^3/uL (0-0.1) 04/05/22 04:29 Differential Comment MANUAL DIFFERENTIAL 04/05/22 04:29 Manual Slide Review Indicated 04/04/22 12:03 WBC Morphology NORMAL APPEARANCE (NORMAL) 04/05/22 04:29 Platelet Estimate NORMAL (130-450,000) (NORMAL) 04/05/22 04:29 Platelet Morphology NORMAL APPEARANCE (NORMAL) 04/05/22 04:29 RBC Morph Micro Appear NORMAL APPEARANCE (NORMAL) 04/05/22 04:29 Absolute Retic 0.039 10^6/uL (0.020-0.110) 04/06/22 11:25 PT 11.9 secs (9.9-12.6) 04/04/22 12:03 INR 1.1 (0.8-1.2) 04/04/22 12:03 VBG pH 7.451 (7.31-7.41) H 04/06/22 04:22 VBG pCO2 31.9 mmHg (41-51) L 04/04/22 12:03 VBG pO2 51.2 mmHg (25-47) H 04/04/22 12:03 VBG HCO3 22.5 mmol/L (23-28) L 04/04/22 12:03 VBG Total CO2 23.5 mmol/L (24-29) L 04/04/22 12:03 VBG O2 Saturation 90.0 % (60-80) H 04/04/22 12:03 VBG Base Excess -0.3 mmol/L (-2 - +2) 04/04/22 12:03 Ionized Calcium 1.09 mmol/L (1.15-1.33) L 04/06/22 04:22 Sodium 126 mmol/L (135-145) L 04/06/22 04:22 Potassium 3.8 mmol/L (3.5-5.0) 04/06/22 04:22 Chloride 95 mmol/L (101-111) L 04/06/22 04:22 Carbon Dioxide 24 mmol/L (21-32) 04/06/22 04:22 Anion Gap 7.0 (6-13) 04/06/22 04:22 BUN 14 mg/dL (6-20) 04/06/22 04:22 Creatinine 0.5 mg/dL (0.6-1.2) L 04/06/22 04:22 Estimated GFR (MDRD) 166 (>89) 04/06/22 04:22 Glucose 177 mg/dL (70-100) H 04/06/22 04:22 Serum Osmolality 230 mOsmol/kg (280-301) L 04/04/22 16:05 Calcium 7.9 mg/dL (8.5-10.3) L 04/06/22 04:22 Phosphorus 2.6 mg/dL (2.5-4.6) 04/06/22 04:22 Magnesium 2.1 mg/dL (1.7-2.8) 04/06/22 04:22 Iron 77 ug/dL (45-182) 04/06/22 11:25 TIBC 199 ug/dL (250-450) L 04/06/22 11:25 % Saturation 39 % (20-50) 04/06/22 11:25 Transferrin 142 mg/dL (180-329) L 04/06/22 11:25 Ferritin 1453.3 ng/mL (23.9-336.2) H 04/06/22 11:25 Total Bilirubin 1.4 mg/dL (0.2-1.0) H 04/04/22 12:03 AST 161 IU/L (10-42) H 04/04/22 12:03 ALT 95 IU/L (10-60) H 04/04/22 12:03 Alkaline Phosphatase 76 IU/L (42-121) 04/04/22 12:03 Ammonia 16.4 umol/L (7-35) 04/04/22 12:03 Lactate Dehydrogenase 249 IU/L (91-225) H 04/06/22 11:25 Total Creatine Kinase 501 IU/L (22-269) H 04/06/22 04:22 CK-MB (CK-2) 7.8 ng/mL (0.6-6.3) H 04/05/22 04:29 Total Protein 6.8 g/dL (6.7-8.2) 04/04/22 12:03 Albumin 3.2 g/dL (3.2-5.5) 04/04/22 12:03 Globulin 3.6 g/dL (2.1-4.2) 04/04/22 12:03 Albumin/Globulin Ratio 0.9 (1.0-2.2) L 04/04/22 12:03 Vitamin B12 1079 pg/mL (180-914) H 04/06/22 11:25 TSH 0.88 uIU/mL (0.34-5.60) 04/04/22 12:03 Urine Color DARK YELLOW 04/04/22 15:13 Urine Clarity CLEAR (CLEAR) 04/04/22 15:13 Urine pH 6.0 PH (5.0-7.5) 04/04/22 15:13 Ur Specific [place] 1.015 (1.002-1.030) 04/04/22 15:13 Urine Protein NEGATIVE mg/dL (NEGATIVE) 04/04/22 15:13 Urine Glucose (UA) NEGATIVE mg/dL (NEGATIVE) 04/04/22 15:13 Urine Ketones 15 mg/dL (NEGATIVE) H 04/04/22 15:13 Urine Occult Blood NEGATIVE (NEGATIVE) 04/04/22 15:13 Urine Nitrite NEGATIVE (NEGATIVE) 04/04/22 15:13 Urine Bilirubin NEGATIVE (NEGATIVE) 04/04/22 15:13 Urine Urobilinogen 0.2 (NORMAL) E.U./dL (NORMAL) 04/04/22 15:13 Ur Leukocyte Esterase NEGATIVE (NEGATIVE) 04/04/22 15:13 Ur Microscopic Review NOT INDICATED 04/04/22 15:13 Urine Culture Comments NOT INDICATED 04/04/22 15:13 Urine Osmolality 518 mOsmol/kg (.) 04/04/22 16:05 Nasal Adenovirus (PCR) NOT DETECTED 04/04/22 12:24 Nasal B. parapertussis DNA (PCR) NOT DETECTED 04/04/22 12:24 Nasal Coronavir 229E PCR NOT DETECTED 04/04/22 12:24 Nasal Coronavir HKU1 PCR NOT DETECTED 04/04/22 12:24 Nasal Coronavir NL63 PCR NOT DETECTED 04/04/22 12:24 Nasal Coronavir OC43 PCR NOT DETECTED 04/04/22 12:24 Nasal Enterovir/Rhinovir PCR NOT DETECTED 04/04/22 12:24 Nasal Influ A H1 2009 PCR DETECTED A 04/04/22 12:24 Nasal Influenza B PCR NOT DETECTED 04/04/22 12:24 Nasal Parainfluen 1 PCR NOT DETECTED 04/04/22 12:24 Nasal Parainfluen 2 PCR NOT DETECTED 04/04/22 12:24 Nasal Parainfluen 3 PCR NOT DETECTED 04/04/22 12:24 Nasal Parainfluen 4 PCR NOT DETECTED 04/04/22 12:24 Nasal RSV (PCR) NOT DETECTED 04/04/22 12:24 Nasal Screen MRSA (PCR) NEGATIVE (NEGATIVE) 04/04/22 23:30 Nasal B.pertussis DNA PCR NOT DETECTED 04/04/22 12:24 Nasal C.pneumoniae (PCR) NOT DETECTED 04/04/22 12:24 Mitchell Human Metapneumo PCR NOT DETECTED 04/04/22 12:24 Nasal M.pneumoniae (PCR) NOT DETECTED 04/04/22 12:24 Nasal SARS-CoV-2 (PCR) NOT DETECTED 04/04/22 12:24 Stl Occult Blood (IFOB) POSITIVE (NEGATIVE) A 04/05/22 19:10 Stl C. diff Tox B Gene NEGATIVE (NEGATIVE) 04/05/22 19:10 Urine Opiates Screen NEGATIVE (NEGATIVE) 04/04/22 15:13 Ur Oxycodone Screen NEGATIVE (NEGATIVE) 04/04/22 15:13 Urine Methadone Screen NEGATIVE (NEGATIVE) 04/04/22 15:13 Ur Propoxyphene Screen NEGATIVE (NEGATIVE) 04/04/22 15:13 Ur Barbiturates Screen NEGATIVE (NEGATIVE) 04/04/22 15:13 Ur Tricyclics Screen NEGATIVE (NEGATIVE) 04/04/22 15:13 Ur Phencyclidine Scrn NEGATIVE (NEGATIVE) 04/04/22 15:13 Ur Amphetamine Screen NEGATIVE (NEGATIVE) 04/04/22 15:13 U Methamphetamines Scrn NEGATIVE (NEGATIVE) 04/04/22 15:13 U Benzodiazepines Scrn NEGATIVE (NEGATIVE) 04/04/22 15:13 Urine Cocaine Screen NEGATIVE (NEGATIVE) 04/04/22 15:13 U Cannabinoids Screen NEGATIVE (NEGATIVE) 04/04/22 15:13 Ethyl Alcohol < 5.0 mg/dL 04/04/22 12:03
--- NOTE | 2022-04-06 17:54 | XRAY Report ---
PROCEDURE: Chest 1 View X-Ray INDICATIONS: cough, F/U ? infiltrates TECHNIQUE: One view of the chest was acquired. COMPARISON: 04/04/2022. FINDINGS: Surgical changes and devices: None. Lungs and pleura: No pleural effusions or pneumothorax. There is interval development of ill-defined opacity in left upper lung field and bilateral lower lung montoya concerning for developing bilateral infiltrates. Mediastinum: Mediastinal contours appear normal. Heart size is normal. Bones and chest wall: No suspicious bony lesions. Overlying soft tissues appear unremarkable. IMPRESSION: Finding is suggestive of developing bilateral pulmonary infiltrates. No pleural effusion or pneumotho rax. Reviewed by: Jd Rooney MD on 04/06/2022 5:52 PM PST Approved by: Jd Rooney MD on 04/06/2022 5:52 PM PST Station ID: [id number]
[2022-04-06] MEDS ORDERED: AZITHROMYCIN 250 MG TABLET PO STA (18:04)
[2022-04-06] MEDS ORDERED: cefTRIAXone 2 GM in SODIUM CHLORIDE 0.9% MINIBAG 100 ML IV STA (18:04)
[2022-04-06] MEDS: ZINC OXIDE 20% OINT 30 GM TUBE TOP PRN (18:57)
[2022-04-06] MEDS: guaiFENesin/CODEINE 5 ML UDC PO PRN (18:57)
[2022-04-06] MEDS: OSELTAMIVIR 75 MG CAPSULE PO SCH (20:59)
[2022-04-07] MEDS: ZINC OXIDE 20% OINT 30 GM TUBE TOP PRN (00:28)
[2022-04-07] MEDS: SODIUM CHLORIDE FLUSH 0.9% 10 ML SYRINGE IVP SCH ×3 (00:28→16:20)
[2022-04-07] MEDS: guaiFENesin/CODEINE 5 ML UDC PO PRN ×3 (03:11→17:25)
[2022-04-07 05:43] LABS: BASOPHILS % (AUTO) 0.2 %; EOSINOPHILS % (AUTO) 0.1 %; HCT - HEMATOCRIT 30.8 % (42.0-52.0); HGB - HEMOGLOBIN 10.8 g/dL (14.0-18.0); LYMPHOCYTES % (AUTO) 11.1 %; MEAN CORPUSCULAR HEMOGLOBIN 32.7 pg (27.0-31.0); MEAN CORPUSCULAR HGB CONC 35.1 g/dL (32.0-36.0); MEAN CORPUSCULAR VOLUME 93.3 fL (80.0-94.0); MONOCYTES # (AUTO) 1.4 10^3/uL (0.0-1.0); MONOCYTES % (AUTO) 14.8 %; NEUTROPHILS # (AUTO) 6.4 10^3/uL (1.5-6.6); PLT - PLATELET COUNT 198 10^3/uL (130-450); RED CELL DISTRIBUTION WIDTH 12.8 % (12.0-15.0); WHITE BLOOD COUNT 9.3 x10^3/uL (4.8-10.8)
[2022-04-07 05:55] LABS: CALCIUM, IONIZED 1.09 mmol/L (1.15-1.33); VBG PH 7.461 (7.31-7.41)
[2022-04-07 05:56] LABS: CALCIUM 8.1 mg/dL (8.5-10.3); CREATININE 0.5 mg/dL (0.6-1.2); MAGNESIUM 1.9 mg/dL (1.7-2.8); PHOSPHORUS 1.9 mg/dL (2.5-4.6)
[2022-04-07] MEDS ORDERED: lisinopriL 5 MG TABLET PO SCH (09:00)
[2022-04-07] MEDS: cefTRIAXone 1 GM in SODIUM CHLORIDE 0.9% MINIBAG 100 ML IV SCH (09:15)
[2022-04-07] MEDS: AZITHROMYCIN 250 MG TABLET PO SCH (09:17)
[2022-04-07] MEDS: PANTOPRAZOLE 40 MG TABLET PO SCH ×2 (09:17→16:20)
[2022-04-07] MEDS: PRENATAL VITAMIN TABLET PO SCH (09:17)
[2022-04-07] MEDS: LOSARTAN 50 MG TABLET PO SCH (09:18)
[2022-04-07] MEDS: OSELTAMIVIR 75 MG CAPSULE PO SCH ×2 (09:18→20:26)
[2022-04-07] MEDS: THIAMINE 100 MG TABLET PO SCH (09:18)
[2022-04-07] MEDS: guaiFENesin 600 MG TABLET PO SCH ×2 (09:18→20:27)
[2022-04-07] MEDS: NICOTINE 14 MG PATCH TOP SCH (09:18)
[2022-04-07] MEDS: buPROPion SR 100 MG TABLET PO SCH (20:26)
[2022-04-08] MEDS: ZINC OXIDE 20% OINT 30 GM TUBE TOP PRN ×3 (00:10→17:30)
[2022-04-08] MEDS: SODIUM CHLORIDE FLUSH 0.9% 10 ML SYRINGE IVP SCH ×3 (00:13→17:17)
[2022-04-08] MEDS: guaiFENesin/CODEINE 5 ML UDC PO PRN ×2 (00:22→17:17)
[2022-04-08 05:39] LABS: CALCIUM 7.9 mg/dL (8.5-10.3); CREATININE 0.5 mg/dL (0.6-1.2); POTASSIUM 3.6 mmol/L (3.5-5.0)
[2022-04-08 05:42] LABS: BASOPHILS % (AUTO) 0.3 %; EOSINOPHILS % (AUTO) 0.1 %; HCT - HEMATOCRIT 33.8 % (42.0-52.0); LYMPHOCYTES # (AUTO) 1.1 10^3/uL (1.5-3.5); LYMPHOCYTES % (AUTO) 10.9 %; MEAN CORPUSCULAR HEMOGLOBIN 33.2 pg (27.0-31.0); MEAN CORPUSCULAR HGB CONC 35.5 g/dL (32.0-36.0); MEAN CORPUSCULAR VOLUME 93.6 fL (80.0-94.0); MONOCYTES # (AUTO) 1.2 10^3/uL (0.0-1.0); NEUTROPHILS # (AUTO) 6.9 10^3/uL (1.5-6.6); NEUTROPHILS % (AUTO) 71.7 %; PLT - PLATELET COUNT 255 10^3/uL (130-450); RED BLOOD COUNT 3.61 10^6/uL (4.70-6.10); RED CELL DISTRIBUTION WIDTH 12.7 % (12.0-15.0); WHITE BLOOD COUNT 9.6 x10^3/uL (4.8-10.8)
[2022-04-08] MEDS: PANTOPRAZOLE 40 MG TABLET PO SCH ×2 (06:29→17:14)
[2022-04-08] MEDS: OSELTAMIVIR 75 MG CAPSULE PO SCH ×2 (09:01→20:48)
[2022-04-08] MEDS: PRENATAL VITAMIN TABLET PO SCH (09:02)
[2022-04-08] MEDS: guaiFENesin 600 MG TABLET PO SCH ×2 (09:02→20:48)
[2022-04-08] MEDS: THIAMINE 100 MG TABLET PO SCH (09:03)
[2022-04-08] MEDS: LOSARTAN 50 MG TABLET PO SCH (09:03)
[2022-04-08] MEDS: AZITHROMYCIN 250 MG TABLET PO SCH (09:03)
[2022-04-08] MEDS: NICOTINE 14 MG PATCH TOP SCH (09:04)
[2022-04-08] MEDS: cefTRIAXone 1 GM in SODIUM CHLORIDE 0.9% MINIBAG 100 ML IV SCH (09:16)
[2022-04-08 09:56] LABS: ALBUMIN 2.7 g/dL (3.2-5.5); BILIRUBIN,DIRECT 0.2 mg/dL (0.1-0.5); BILIRUBIN,TOTAL 1.1 mg/dL (0.2-1.0); TOTAL PROTEIN 6.3 g/dL (6.7-8.2)
--- NOTE | 2022-04-08 10:39 | PROVIDER PROGRESS NOTE ---
Assessment/Plan - Problem List (1) Hyponatremia Assessment/Plan: Most likely due to excessive beer intake, and poor nutrition. This affects the kidney and causes dilutional hyponatremia secondary to reduced clearance of water from his body. 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 He received 100 mL of hypertonic saline in the ED and Na stayed at 106. Then we started him on Hypertonic NS. Monitored sodium carefully and he went from 106- >110>> 114>> 117. We then stopped the Hypertonic Saline and switch him over to Normal Saline since he was awake and appropriate. Na then was 120 >> plateaued at 126. Plan: See how he does on fluid restriction of 1000 cc free water daily. Regular diet. He is allowed to salt his food, and family wants to bring him a roast for Surinder dinner tomorrow and I okayed that. We placed a Home Health referral to get a bath aide, PT and OT, and social science research assistant. His may need some help getting him through the next few weeks of not drinking. (2) Alcoholism Conclusion/Plan: He drank about 15 beers a day, has not had a beer in several days. The has always been concerned about stopping his beer drinking by restricting it suddenly, because she felt he would go into withdrawal and possibly have seizures and . Thiamine given in the ER. So far no tremors, no tachycardia, no hypertension as signs of withdrawal. Today he is very confused, but CIWA score is 3. When I spoke to him, with , daughter and son-in-law at bedside, that it will be hard to break that habit of 15 beers a day, since he has done that for many years, he said he will "deal with it" and verbally promised to stop drinking so much, however, he was more interested in watching the movie on TV than our conversation. This gentleman has a history of refusing any type of intervention. Plan: He has been started on vitamin, and p.o. thiamine Continue to watch for alcohol withdrawal with CIWA protocol Will ask for a SW consult to suggest more resources for him and for the family to have, to stop his alcohol abuse. All the above was discussed with at bedside (3) Confusion This morning he was found to be getting OOB 5 times, after reminders not to do that by himself. The TYPESETTER PERFORATOR OPERATOR noted that he was very unsteady on his feet. I did a mini-mental exam at bedside and he could not remember he was in a hospital, only that he was in [place], he said I was "the one in charge of this place" but could not say doctor, and only remembered 1.5 of 3 words after 5 min. When asked why he is getting out of bed, he said "because I am not hooked up to the cable, and wanted to come out into hallway". He did have a CT head done at admission and it showed periventricular and deep white matter hypodensities consistent with microvascular ischemic changes. I suspect he has Wernicke's encephalopathy from years of daily alcohol abuse. He probably also has ataxia from alcohol abuse. Plan: PT and OT to continue working with him. The initial recommendation from PT and OT was Home Health PT and OT, however, the told me yesterday that he falls alot, so being at home may not be the optimum location for rehab, until he imp roves. Ammonia level to be followed. If elevated will start Lactulose. Continue management to keep serum Sodium in a normal range. Continue O2 to keep sats 88% or higher. Continue CIWA protocol. All the above was discussed with at bedside (4) COPD (chronic obstructive pulmonary disease) Conclusion/Plan: He presented with saturation of 99% on room air. But as his admission has continued and he received fluids, he has needed some suppl 02. There is fine wheezing and a new cough. He is not on any bronchodilators at home. He appears to be without exacerbation. Solu-Medrol 40 mg IV push every 8 hours was given for 3 doses. He still requires 1-2 L nasal cannula to maintain O2 sat at 92%. When we take off his oxygen he drops down to 39%. He is a longtime smoker. Plan: Mucinex roland and Robitussin prn were started several days ago, continue these DuoNeb 4 times daily will be changed to TID scheduled Continue suppl O2, target saturation 88% or higher Oxygen desaturation study planned on the day he is discharged He will also need pulmonary function studies in the outpatient setting. That if he agrees, since this gentleman has a history of refusing any type of intervention. Qualifiers: COPD type: emphysema Emphysema type: unspecified Qualified Code(s): J43.9 - Emphysema, unspecified (5) Pneumonia Conclusion/Plan: He presented with a cough, had a normal WBC, but his CXR at admission was read as having bilateral patchy infiltrates. He still has an unrelenting cough. A CXR was repeated and showed definite bilateral infiltrates Plan: We added Mucinex for pulmonary toilet aand Robitussin AC for cough suppression. We ordered a sputum for culture>> prelim result shows Gram Neg Bacilli We started empiric po Zithromax and iv Ceftriaxone (6) Influenza infection He tested Influenza A (+) at admission and still has a cough and intermittent O2 desats Plan: We ordered Tamiflu (7) Sacral decub He has a Stage 1 sacral decubitus wound, brought to my attention and photos were reviewed The said he sits all day. Plan: Begin topical care If he is incontinent of urine he may need a [place] (8) Hypertension Conclusion/Plan: He takes benazepril at home. Zestril was 5 mg daily and was increased yesterday to 10 mg to control HTN. Plan: Due to his dry cough, I will stop Zestril. Will start Losartan in it's place and will DCh home on this Qualifiers: Hypertension type: primary hypertension Qualified Code(s): I10 - Essential (primary) hypertension (9) Rhabdomyolysis Conclusion/Plan: The told me that pt falls frequently. We could not give him aggressive IV fluids at admission, because of the hypernatremia. After the normal saline and hypertonic saline, his CK is going down. CK 1788>> 949>> 501>> 200 Plan: Since we are now restricting free water fluids, will watch CK intermittently, so as not to let CK rise Qualifiers: Rhabdomyolysis type: non-traumatic Qualified Code(s): M62.82 - Rhabdomyolysis (10) Anemia with guaic positive stool His Iron panel showed low TIBC and Transferrin. He is already on a vitamin and on thiamine (and Thiamine level was not low) Plan: Follow H/H daily, if it is dropping now, it is no longer from hemodilution. Will stop Lovenox sq daily and use SCDs for DVT prophylaxis. Will start empiric Protonix po BID Depending on his desire to comply in the outpatient setting, he would need an outpatient colonoscopy and EGD, or as an Inpt if there is signs of a rapid bleed. (11) Tobacco use Reports smoking 1 pack a day, none since being admitted, is getting a Nicotine patch. Plan: Will start Wellbutrin (since son-in-law reports that pt is depressed and has nothing to do all day, which the pt agreed was true). I offered to continue nicotine patch at the time of discharge, he and the family all agreed it will be needed. - Current Meds Current Meds: Current Medications Generic Name Dose Route Start Last Admin Trade Name Rodri PRN Reason Stop Dose Admin Azithromycin 250 mg 04/07/22 09:00 04/08/22 09:03 Azithromycin 250 Mg Tablet PO 04/11/22 00:01 250 mg DAILY ROLAND Administration Bupropion HCl 100 mg 04/07/22 21:00 04/07/22 20:26 Bupropion Sr 100 Mg Tablet PO 100 mg QPM ROLAND Administration Guaifenesin 600 mg 04/06/22 12:00 04/08/22 09:02 Guaifenesin 600 Mg Tablet PO 600 mg BID ROLAND Administration Guaifenesin/Codeine Phosphate 5 ml 04/06/22 17:21 04/08/22 00:22 Guaifenesin/Codeine 5 Ml Udc PO 5 ml Q6HR PRN Administration Cough Ceftriaxone Sodium 1 gm/ 100 mls @ 200 mls/hr 04/07/22 09:00 04/08/22 09:16 Sodium Chloride IV 200 mls/hr DAILY ROLAND Administration Losartan Potassium 50 mg 04/07/22 09:00 04/08/22 09:03 Losartan 50 Mg Tablet PO 50 mg DAILY ROLAND Administration Multi-Ingredient Ointment 1 applic 04/04/22 23:45 04/08/22 05:27 Zinc Oxide 20% Oint 30 Gm Tube TOP 1 applic PRN PRN Administration Skin Care Nicotine 1 patch 04/05/22 12:00 04/08/22 09:04 Nicotine 14 Mg Patch TOP 1 patch DAILY ROLAND Administration Oseltamivir Phosphate 75 mg 04/06/22 21:00 04/08/22 09:01 Oseltamivir 75 Mg Capsule PO 04/11/22 09:01 75 mg BID ROLAND Administration Pantoprazole Sodium 40 mg 04/07/22 08:00 04/08/22 06:29 Pantoprazole 40 Mg Tablet PO 40 mg BIDAC ROLAND Administration Multivit/Folic Acid/Iron 1 tab 04/05/22 08:00 04/08/22 09:02 Vitamin Tablet PO 1 tab DAILYWM ROLAND Administration Sodium Chloride 10 ml 04/04/22 17:00 04/08/22 09:19 Sodium Chloride Flush 0.9% 10 Ml Syringe IVP 10 ml 0100,0900,1700 ROLAND Administration Thiamine HCl 100 mg 04/05/22 15:00 04/08/22 09:03 Thiamine 100 Mg Tablet PO 100 mg DAILY ROLAND Administration - Lab Result Fish Bone Diagrams: 04/08/22 05:20 04/08/22 05:20 - Additional Planning My Orders: My Active Orders 04/07/22 21:00 buPROPion [Wellbutrin Sr] 100 mg PO QPM 04/08/22 00:15 Nebulizer/MDI Tx. [RC] QID 04/08/22 09:19 Resp Teach Nebulizer/MDI [RC] .ONCE 04/08/22 10:00 Ipratropium/Albuterol [Duoneb] 3 ml INH RTTID 04/09/22 05:00 AMMONIA [CHEM] DAILYLAB BMP - BASIC METABOLIC PANEL [CHEM] DAILYLAB CBC - COMP BLD CT W/AUTO DIFF [HEME] DAILYLAB Subjective - Subjective Patient Reports: Other (He says he is ready to go home, "has no more to give us") Objective Vital Signs: Vital Signs - 24 hr 04/07/22 04/08/22 04/08/22 15:52 00:00 00:20 Temperature 36.5 C Heart Rate 95 Heart Rate [ 91 Brachial] Respiratory 18 24 Rate Blood Pressure 153/81 H 185/88 H [Right Brachial artery] O2 Saturation 92 83 L If not protocol 3 : Oxygen Flow, liters/minute 04/08/22 04/08/22 04/08/22 00:22 01:45 03:04 Temperature 36.2 C L Heart Rate Heart Rate [ 93 87 89 Brachial] Respiratory 22 18 Rate Blood Pressure 179/70 H 166/69 H [Right Brachial artery] O2 Saturation 92 93 83 L If not protocol 3 2 2 : Oxygen Flow, liters/minute 04/08/22 07:37 Temperature 36.5 C Heart Rate Heart Rate [ 99 Brachial] Respiratory 20 Rate Blood Pressure 175/77 H [Right Brachial artery] O2 Saturation 95 If not protocol 2 : Oxygen Flow, liters/minute Oxygen O2 Source Nasal cannula I&O (Last 24 Hrs): Intake and Output Totals x24h 04/06/22 04/07/22 04/08/22 23:59 23:59 23:59 Intake Total 2870.993 1060 420 Output Total 1050 1250 1350 Balance 1820.993 190 930 General: Alert, Mild distress (from cough and needs to use toiket) HEENT: Mucous membr. moist/pink Neck: Supple, No JVD Neuro: Alert, Disoriented Cardiovascular: Regular rate, No murmurs Respiratory: No respiratory distress, Wheezes Abdomen: Soft, No tenderness Extremities: No clubbing, No edema, No tenderness/swelling - Results Results: Laboratory Results WBC 9.6 x10^3/uL (4.8-10.8) 04/08/22 05:20 RBC 3.61 10^6/uL (4.70-6.10) L 04/08/22 05:20 Hgb 12.0 g/dL (14.0-18.0) L 04/08/22 05:20 Hct 33.8 % (42.0-52.0) L 04/08/22 05:20 MCV 93.6 fL (80.0-94.0) 04/08/22 05:20 MCH 33.2 pg (27.0-31.0) H 04/08/22 05:20 MCHC 35.5 g/dL (32.0-36.0) 04/08/22 05:20 RDW 12.7 % (12.0-15.0) 04/08/22 05:20 Plt Count 255 10^3/uL (130-450) 04/08/22 05:20 MPV 9.0 fL (7.4-11.4) 04/08/22 05:20 Reticulocyte % (Auto) 1.08 % (0.5-2.3) 04/06/22 11:25 Neut # (Auto) 6.9 10^3/uL (1.5-6.6) H 04/08/22 05:20 Lymph # (Auto) 1.1 10^3/uL (1.5-3.5) L 04/08/22 05:20 [place] # (Auto) 1.2 10^3/uL (0.0-1.0) H 04/08/22 05:20 Eos # (Auto) 0.0 10^3/uL (0.0-0.7) 04/08/22 05:20 Baso # (Auto) 0.0 10^3/uL (0.0-0.1) 04/08/22 05:20 Absolute Nucleated RBC 0.00 x10^3/uL 04/08/22 05:20 Total Counted 100 04/05/22 04:29 Band Neuts % (Manual) 3 % (0-10) 04/05/22 04:29 Reactive Lymphs % (Man) 2 % 04/04/22 12:03 Abnorm Lymph % (Manual) 0 % 04/05/22 04:29 Nucleated RBC % 0.0 /100WBC 04/08/22 05:20 Neutrophils # (Manual) 7.8 10^3/uL (1.5-6.6) H 04/05/22 04:29 Lymphocytes # (Manual) 1.0 10^3/uL (1.5-3.5) L 04/05/22 04:29 Monocytes # (Manual) 1.0 10^3/uL (0.0-1.0) 04/05/22 04:29 Eosinophils # (Manual) 0.0 10^3/uL (0-0.7) 04/05/22 04:29 Basophils # (Manual) 0.0 10^3/uL (0-0.1) 04/05/22 04:29 Differential Comment MANUAL DIFFERENTIAL 04/05/22 04:29 Manual Slide Review Indicated 04/04/22 12:03 WBC Morphology NORMAL APPEARANCE (NORMAL) 04/05/22 04:29 Platelet Estimate NORMAL (130-450,000) (NORMAL) 04/05/22 04:29 Platelet Morphology NORMAL APPEARANCE (NORMAL) 04/05/22 04:29 RBC Morph Micro Appear NORMAL APPEARANCE (NORMAL) 04/05/22 04:29 Absolute Retic 0.039 10^6/uL (0.020-0.110) 04/06/22 11:25 PT 11.9 secs (9.9-12.6) 04/04/22 12:03 INR 1.1 (0.8-1.2) 04/04/22 12:03 VBG pH 7.461 (7.31-7.41) H 04/07/22 05:32 VBG pCO2 31.9 mmHg (41-51) L 04/04/22 12:03 VBG pO2 51.2 mmHg (25-47) H 04/04/22 12:03 VBG HCO3 22.5 mmol/L (23-28) L 04/04/22 12:03 VBG Total CO2 23.5 mmol/L (24-29) L 04/04/22 12:03 VBG O2 Saturation 90.0 % (60-80) H 04/04/22 12:03 VBG Base Excess -0.3 mmol/L (-2 - +2) 04/04/22 12:03 Ionized Calcium 1.09 mmol/L (1.15-1.33) L 04/07/22 05:32 Sodium 126 mmol/L (135-145) L 04/08/22 05:20 Potassium 3.6 mmol/L (3.5-5.0) 04/08/22 05:20 Chloride 92 mmol/L (101-111) L 04/08/22 05:20 Carbon Dioxide 26 mmol/L (21-32) 04/08/22 05:20 Anion Gap 8.0 (6-13) 04/08/22 05:20 BUN 10 mg/dL (6-20) 04/08/22 05:20 Creatinine 0.5 mg/dL (0.6-1.2) L 04/08/22 05:20 Estimated GFR (MDRD) 166 (>89) 04/08/22 05:20 Glucose 104 mg/dL (70-100) H 04/08/22 05:20 Serum Osmolality 230 mOsmol/kg (280-301) L 04/04/22 16:05 Calcium 7.9 mg/dL (8.5-10.3) L 04/08/22 05:20 Phosphorus 1.9 mg/dL (2.5-4.6) L 04/07/22 05:32 Magnesium 1.9 mg/dL (1.7-2.8) 04/07/22 05:32 Iron 77 ug/dL (45-182) 04/06/22 11:25 TIBC 199 ug/dL (250-450) L 04/06/22 11:25 % Saturation 39 % (20-50) 04/06/22 11:25 Transferrin 142 mg/dL (180-329) L 04/06/22 11:25 Ferritin 1453.3 ng/mL (23.9-336.2) H 04/06/22 11:25 Total Bilirubin 1.1 mg/dL (0.2-1.0) H 04/08/22 05:20 Direct Bilirubin 0.2 mg/dL (0.1-0.5) 04/08/22 05:20 AST 75 IU/L (10-42) H 04/08/22 05:20 ALT 84 IU/L (10-60) H 04/08/22 05:20 Alkaline Phosphatase 64 IU/L (42-121) 04/08/22 05:20 Ammonia 16.0 umol/L (7-35) 04/08/22 09:30 Lactate Dehydrogenase 249 IU/L (91-225) H 04/06/22 11:25 Total Creatine Kinase 329 IU/L (22-269) H 04/07/22 05:32 CK-MB (CK-2) 7.8 ng/mL (0.6-6.3) H 04/05/22 04:29 Total Protein 6.3 g/dL (6.7-8.2) L 04/08/22 05:20 Albumin 2.7 g/dL (3.2-5.5) L 04/08/22 05:20 Globulin 3.6 g/dL (2.1-4.2) 04/08/22 05:20 Albumin/Globulin Ratio 0.9 (1.0-2.2) L 04/04/22 12:03 Vitamin B12 1079 pg/mL (180-914) H 04/06/22 11:25 TSH 0.88 uIU/mL (0.34-5.60) 04/04/22 12:03 Urine Color DARK YELLOW 04/04/22 15:13 Urine Clarity CLEAR (CLEAR) 04/04/22 15:13 Urine pH 6.0 PH (5.0-7.5) 04/04/22 15:13 Ur Specific [place] 1.015 (1.002-1.030) 04/04/22 15:13 Urine Protein NEGATIVE mg/dL (NEGATIVE) 04/04/22 15:13 Urine Glucose (UA) NEGATIVE mg/dL (NEGATIVE) 04/04/22 15:13 Urine Ketones 15 mg/dL (NEGATIVE) H 04/04/22 15:13 Urine Occult Blood NEGATIVE (NEGATIVE) 04/04/22 15:13 Urine Nitrite NEGATIVE (NEGATIVE) 04/04/22 15:13 Urine Bilirubin NEGATIVE (NEGATIVE) 04/04/22 15:13 Urine Urobilinogen 0.2 (NORMAL) E.U./dL (NORMAL) 04/04/22 15:13 Ur Leukocyte Esterase NEGATIVE (NEGATIVE) 04/04/22 15:13 Ur Microscopic Review NOT INDICATED 04/04/22 15:13 Urine Culture Comments NOT INDICATED 04/04/22 15:13 Urine Osmolality 518 mOsmol/kg (.) 04/04/22 16:05 Nasal Adenovirus (PCR) NOT DETECTED 04/04/22 12:24 Nasal B. parapertussis DNA (PCR) NOT DETECTED 04/04/22 12:24 Nasal Coronavir 229E PCR NOT DETECTED 04/04/22 12:24 Nasal Coronavir HKU1 PCR NOT DETECTED 04/04/22 12:24 Nasal Coronavir NL63 PCR NOT DETECTED 04/04/22 12:24 Nasal Coronavir OC43 PCR NOT DETECTED 04/04/22 12:24 Nasal Enterovir/Rhinovir PCR NOT DETECTED 04/04/22 12:24 Nasal Influ A H1 2009 PCR DETECTED A 04/04/22 12:24 Nasal Influenza B PCR NOT DETECTED 04/04/22 12:24 Nasal Parainfluen 1 PCR NOT DETECTED 04/04/22 12:24 Nasal Parainfluen 2 PCR NOT DETECTED 04/04/22 12:24 Nasal Parainfluen 3 PCR NOT DETECTED 04/04/22 12:24 Nasal Parainfluen 4 PCR NOT DETECTED 04/04/22 12:24 Nasal RSV (PCR) NOT DETECTED 04/04/22 12:24 Nasal Screen MRSA (PCR) NEGATIVE (NEGATIVE) 04/04/22 23:30 Nasal B.pertussis DNA PCR NOT DETECTED 04/04/22 12:24 Nasal C.pneumoniae (PCR) NOT DETECTED 04/04/22 12:24 Mitchell Human Metapneumo PCR NOT DETECTED 04/04/22 12:24 Nasal M.pneumoniae (PCR) NOT DETECTED 04/04/22 12:24 Nasal SARS-CoV-2 (PCR) NOT DETECTED 04/04/22 12:24 Stl Occult Blood (IFOB) POSITIVE (NEGATIVE) A 04/05/22 19:10 Stl C. diff Tox B Gene NEGATIVE (NEGATIVE) 04/05/22 19:10 Urine Opiates Screen NEGATIVE (NEGATIVE) 04/04/22 15:13 Ur Oxycodone Screen NEGATIVE (NEGATIVE) 04/04/22 15:13 Urine Methadone Screen NEGATIVE (NEGATIVE) 04/04/22 15:13 Ur Propoxyphene Screen NEGATIVE (NEGATIVE) 04/04/22 15:13 Ur Barbiturates Screen NEGATIVE (NEGATIVE) 04/04/22 15:13 Ur Tricyclics Screen NEGATIVE (NEGATIVE) 04/04/22 15:13 Ur Phencyclidine Scrn NEGATIVE (NEGATIVE) 04/04/22 15:13 Ur Amphetamine Screen NEGATIVE (NEGATIVE) 04/04/22 15:13 U Methamphetamines Scrn NEGATIVE (NEGATIVE) 04/04/22 15:13 U Benzodiazepines Scrn NEGATIVE (NEGATIVE) 04/04/22 15:13 Urine Cocaine Screen NEGATIVE (NEGATIVE) 04/04/22 15:13 U Cannabinoids Screen NEGATIVE (NEGATIVE) 04/04/22 15:13 Ethyl Alcohol < 5.0 mg/dL 04/04/22 12:03
[2022-04-08] MEDS: IPRATROPIUM/ALBUTEROL 3 ML NEB INH SCH ×3 (14:11→20:25)
[2022-04-08] MEDS: ZINC OXIDE 20% OINT 30 GM TUBE TOP SCH (20:48)
[2022-04-08] MEDS: buPROPion SR 100 MG TABLET PO SCH (20:48)
[2022-04-09] MEDS: SODIUM CHLORIDE FLUSH 0.9% 10 ML SYRINGE IVP SCH ×3 (00:13→18:41)
[2022-04-09] MEDS: PANTOPRAZOLE 40 MG TABLET PO SCH ×2 (06:19→18:41)
[2022-04-09 07:10] LABS: BASOPHILS % (AUTO) 0.3 %; EOSINOPHILS % (AUTO) 0.1 %; HCT - HEMATOCRIT 32.9 % (42.0-52.0); HGB - HEMOGLOBIN 11.7 g/dL (14.0-18.0); LYMPHOCYTES # (AUTO) 0.9 10^3/uL (1.5-3.5); LYMPHOCYTES % (AUTO) 7.8 %; MEAN CORPUSCULAR HEMOGLOBIN 32.8 pg (27.0-31.0); MEAN CORPUSCULAR HGB CONC 35.6 g/dL (32.0-36.0); MEAN CORPUSCULAR VOLUME 92.2 fL (80.0-94.0); MEAN PLATELET VOLUME 8.7 fL (7.4-11.4); MONOCYTES # (AUTO) 1.1 10^3/uL (0.0-1.0); MONOCYTES % (AUTO) 9.2 %; NEUTROPHILS # (AUTO) 9.1 10^3/uL (1.5-6.6); NEUTROPHILS % (AUTO) 78.6 %; PLT - PLATELET COUNT 215 10^3/uL (130-450); RED BLOOD COUNT 3.57 10^6/uL (4.70-6.10); RED CELL DISTRIBUTION WIDTH 12.8 % (12.0-15.0); WHITE BLOOD COUNT 11.6 x10^3/uL (4.8-10.8)
[2022-04-09 07:21] LABS: CALCIUM 7.8 mg/dL (8.5-10.3); CREATININE 0.5 mg/dL (0.6-1.2); POTASSIUM 3.4 mmol/L (3.5-5.0)
[2022-04-09] MEDS ORDERED: POTASSIUM CHLORIDE 10 MEQ CAPSULE PO ONE (08:00)
[2022-04-09] MEDS: cefTRIAXone 1 GM in SODIUM CHLORIDE 0.9% MINIBAG 100 ML IV SCH (09:20)
[2022-04-09] MEDS: guaiFENesin 600 MG TABLET PO SCH ×2 (09:21→21:08)
[2022-04-09] MEDS: AZITHROMYCIN 250 MG TABLET PO SCH (09:21)
[2022-04-09] MEDS: NICOTINE 14 MG PATCH TOP SCH (09:21)
[2022-04-09] MEDS: THIAMINE 100 MG TABLET PO SCH (09:21)
[2022-04-09] MEDS: LOSARTAN 50 MG TABLET PO SCH (09:21)
[2022-04-09] MEDS: OSELTAMIVIR 75 MG CAPSULE PO SCH ×2 (09:21→21:08)
[2022-04-09] MEDS: PRENATAL VITAMIN TABLET PO SCH (09:21)
[2022-04-09] MEDS: ZINC OXIDE 20% OINT 30 GM TUBE TOP SCH ×2 (09:23→21:08)
[2022-04-09] MEDS: IPRATROPIUM/ALBUTEROL 3 ML NEB INH SCH ×3 (10:27→19:29)
[2022-04-09] MEDS: ZINC OXIDE 20% OINT 30 GM TUBE TOP PRN (13:34)
[2022-04-09] MEDS ORDERED: oxyCODONE 5 MG TABLET PO PRN (14:32)
--- NOTE | 2022-04-09 14:44 | PROVIDER PROGRESS NOTE ---
Assessment/Plan - Problem List (1) Orthostatic hypotension Assessment/Plan: Due to details obtained from yesterday, of pt having frequent falls at home, orthostatic VS were ordered. Today his syst BP dropped from 150 supine, to 118 standing. Plan: He is not ready for discharge today. He is on Losartan 50 mg daily for HTN, which I will decrease down to 25 mg daily. He had no PT or OT over the weekend (today is Saturday and we have no PT or OT services on weekends), therefore he needs further work with PT and OT to determine where a safe discharge location will be for him. (2) Hyponatremia Assessment/Plan: Most likely due to excessive beer intake, and poor nutrition. This affects the kidney and causes dilutional hyponatremia secondary to reduced clearance of water from his body. 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 He received 100 mL of hypertonic saline in the ED and Na stayed at 106. Then we started him on Hypertonic NS. Monitored sodium carefully and he went from 106- >110>> 114>> 117. We then stopped the Hypertonic Saline and switch him over to Normal Saline since he was awake and appropriate. Na then was 120 >> plateaued at 126-125. Plan: See how he does on fluid restriction of 1000 cc free water daily. Regular diet. He is allowed to salt his food, and family wants to bring him a roast for [place] dinner tomorrow and I okayed that. We placed a Home Health referral to get a bath aide, PT and OT, and clinical social worker, but not sure if he will go to a SNF or home with Home Health services. (3) Alcoholism Conclusion/Plan: He drank about 15 beers a day, has not had a beer in several days. The has always been concerned about stopping his beer drinking by restricting it suddenly, because she felt he would go into withdrawal and possibly have seizures and . Thiamine given in the ER. So far no tremors, no tachycardia, no hypertension as signs of withdrawal. He is very confused, but CIWA score is 3. When I spoke to him, with , daughter and son-in-law at bedside, that it will be hard to break that habit of 15 beers a day, since he has done that for many years, he said he will "deal with it" and verbally promised to stop drinking so much, however, he was more interested in watching the movie on TV than our conversation. This gentleman has a history of refusing any type of interventi on. Plan: He has been started on vitamin, and p.o. thiamine Continue to watch for alcohol withdrawal with CIWA protocol Will ask for a SW consult to suggest more resources for him and for the family to have, to stop his alcohol abuse. All the above was discussed with outside of his room (4) Confusion In 04/08, he was found to be getting OOB 5 times, after reminders not to do that by himself. The ENVIRONMENTAL PLANNING ENGINEER noted that he was very unsteady on his feet. I did a mini-mental exam at bedside and he could not remember he was in a hospital, only that he was in [place], he said I was "the one in charge of this place" but could not say doctor, and only remembered 1.5 of 3 words after 5 min. When asked why he is getting out of bed, he said "because I am not hooked up to the cable, and wanted to come out into hallway". He did have a CT head done at admission and it showed periventricular and deep white matter hypodensities consistent with microvascular ischemic changes. I suspect he has Wernicke's encephalopathy from years of daily alcohol abuse. He probably also has ataxia from alcohol abuse. I discussed these diagnoses with the pt and at bedside yesterday, and tyold them that he may no longer drive and that a DMV form will be submitted, which I did today. The patient said he "can drive just fine". Today a cognitive eval was ordered and done by OT and he scored 12/30 with extremely poor working memory. Plan: PT and OT to continue working with him. The initial recommendation from PT and OT was Home Health PT and OT, however, the told me yesterday that he falls alot, so being at home may not be the optimum location for rehab, until he impr oves. Ammonia level to be followed. If elevated will start Lactulose. Continue management to keep serum Sodium in a normal range. Continue O2 to keep sats 88% or higher. Continue CIWA protocol. Decrease or stop narcotics, which may be adding to confusion. The is deciding if she wants him to go to a SNF. (4) COPD (chronic obstructive pulmonary disease) Conclusion/Plan: This pt is a smoker of 1 PPD of cigarettes for many decades. He presented with saturation of 99% on room air. But as his admission continued and he received iv fluids, he has needed suppl 02. There is fine wheezing and a worse (than usual) cough. He was not on any bronchodilators at home. He appears to be without exacerbation. Solu-Medrol 40 mg IV every 8 hours was given for 3 doses. He still requires 1-2 L nasal cannula to maintain O2 sat at 92%. When we take off his oxygen he drops down to below 80%. Plan: Mucinex roland and Robitussin prn were started, continue these DuoNeb 4 times daily will be changed to TID scheduled Continue suppl O2, target saturation 88% or higher Oxygen desaturation study planned on the day he is discharged He will also need pulmonary function studies in the outpatient setting. That if he agrees, since this gentleman has a history of refusing any type of intervention. Qualifiers: COPD type: emphysema Emphysema type: unspecified Qualified Code(s): J43.9 - Emphysema, unspecified (5) Pneumonia Conclusion/Plan: He presented with a cough, had a normal WBC, but his CXR at admission was read as having bilateral patchy infiltrates. He still has an unrelenting cough. A CXR was repeated after admission and showed definite bilateral infiltrates Plan: We added Mucinex for pulmonary toilet and Robitussin AC for cough suppression. We ordered a sputum for culture>> prelim result shows Gram Neg Bacilli We started empiric po Zithromax and iv Ceftriaxone (6) Influenza infection He tested Influenza A (+) at admission and still has a cough and intermittent O2 desats Plan: We ordered Tamiflu (7) Sacral decub He has a Stage 1 sacral decubitus wound, brought to my attention and photos were reviewed The said he sits all day. Plan: Begin topical care, daily dressing changes. If he is incontinent of urine he may need a Malave (8) Hypertension Conclusion/Plan: He takes benazepril at home. Zestril was 5 mg daily, increased 10 mg earlier this admission, to control HTN. Then I stopped Zestril due to his dry cough, and started Losartan in it's place Plan: I am decreasing Losartan today due to orthostasis. Plan on [facility] home on ARB not [facility] Qualifiers: Hypertension type: primary hypertension Qualified Code(s): I10 - Essential (primary) hypertension (9) Rhabdomyolysis Conclusion/Plan: The told me that pt falls frequently. After the normal saline and hypertonic saline, his CK is going down from CK 1788>> 949>> 501>> 200 Plan: Since we are now restricting free water fluids, will watch CK intermittently, so as not to let CK rise Qualifiers: Rhabdomyolysis type: non-traumatic Qualified Code(s): M62.82 - Rhabdomyolysis (10) Anemia with guaic positive stool His Iron panel showed low TIBC and Transferrin. He is already on a vitamin and on thiamine (and Thiamine level was not low) Plan: Follow H/H daily, if it is dropping now, it is no longer from hemodilution. We stopped Lovenox sq daily and use SCDs for DVT prophylaxis. We started empiric Protonix po BID Depending on his desire to comply in the outpatient setting, he would need an outpatient colonoscopy and EGD, or as an Inpt if there is signs of a rapid bleed. (11) Tobacco use Reports smoking 1 pack a day, none since being admitted, is getting a Nicotine patch. Plan: Will start Wellbutrin (since son-in-law reports that pt is depressed and has nothing to do all day, which the pt agreed was true). I offered to continue nicotine patch at the time of discharge, he and the family all agreed it will be needed. - Current Meds Current Meds: Current Medications Generic Name Dose Route Start Last Admin Trade Name Rodri PRN Reason Stop Dose Admin Albuterol/Ipratropium 3 ml 04/08/22 10:00 04/09/22 10:27 Ipratropium/Albuterol 3 Ml Neb INH Not Given RTTID ROLAND Azithromycin 250 mg 04/07/22 09:00 04/09/22 09:21 Azithromycin 250 Mg Tablet PO 04/11/22 00:01 250 mg DAILY ROLAND Administration Bupropion HCl 100 mg 04/07/22 21:00 04/08/22 20:48 Bupropion Sr 100 Mg Tablet PO 100 mg QPM ROLAND Administration Guaifenesin 600 mg 04/06/22 12:00 04/09/22 09:21 Guaifenesin 600 Mg Tablet PO 600 mg BID ROLAND Administration Guaifenesin/Codeine Phosphate 5 ml 04/06/22 17:21 04/08/22 17:17 Guaifenesin/Codeine 5 Ml Udc PO 5 ml Q6HR PRN Administration Cough Ceftriaxone Sodium 1 gm/ 100 mls @ 200 mls/hr 04/07/22 09:00 04/09/22 09:50 Sodium Chloride IV Infused DAILY ROLAND Infusion Multi-Ingredient Ointment 1 applic 04/04/22 23:45 04/09/22 13:34 Zinc Oxide 20% Oint 30 Gm Tube TOP 1 applic PRN PRN Administration Skin Care Multi-Ingredient Ointment 1 applic 04/08/22 21:00 04/09/22 09:23 Zinc Oxide 20% Oint 30 Gm Tube TOP 1 applic BID ROLAND Administration Nicotine 1 patch 04/05/22 12:00 04/09/22 09:21 Nicotine 14 Mg Patch TOP 1 patch DAILY ROLAND Administration Oseltamivir Phosphate 75 mg 04/06/22 21:00 04/09/22 09:21 Oseltamivir 75 Mg Capsule PO 04/11/22 09:01 75 mg BID ROLAND Administration Pantoprazole Sodium 40 mg 04/07/22 08:00 04/09/22 06:19 Pantoprazole 40 Mg Tablet PO 40 mg BIDAC ROLAND Administration Multivit/Folic Acid/Iron 1 tab 04/05/22 08:00 04/09/22 09:21 Vitamin Tablet PO 1 tab DAILYWM ROLAND Administration Sodium Chloride 10 ml 04/04/22 17:00 04/09/22 09:23 Sodium Chloride Flush 0.9% 10 Ml Syringe IVP 10 ml 0100,0900,1700 ROLAND Administration Sodium Chloride 10 ml 04/04/22 15:40 04/09/22 10:33 Sodium Chloride Flush 0.9% 10 Ml Syringe IVP 10 ml PRN PRN Administration NEEDED PER PROVIDER ORDERS Thiamine HCl 100 mg 04/05/22 15:00 04/09/22 09:21 Thiamine 100 Mg Tablet PO 100 mg DAILY ROLAND Administration - Lab Result Fish Bone Diagrams: 04/09/22 07:05 04/09/22 07:05 - Additional Planning My Orders: My Active Orders 04/08/22 21:00 Zinc Oxide 20% Oint [Zinc Oxide] 1 applic TOP BID 04/09/22 Evaluate and Treat OT [OT] Routine 04/09/22 07:54 Orthostatic [Vital Signs - Orthostatic] [RC] QSHIFT 04/09/22 14:32 oxyCODONE [Roxicodone] 5 mg PO Q6HR PRN 04/10/22 05:00 AMMONIA [CHEM] DAILYLAB BMP - BASIC METABOLIC PANEL [CHEM] DAILYLAB CBC - COMP BLD CT W/AUTO DIFF [HEME] DAILYLAB 04/10/22 09:00 Losartan [Cozaar] 25 mg PO DAILY Subjective - Subjective Patient Reports: Resting Comfortably, Cough Nursing Reports: Other (Cognitive eval by OT: he scored 04/13, has extremely poor working memory. Pt reported ataxia but able to walk with a walker.) Objective Vital Signs: Vital Signs - 24 hr 04/08/22 04/08/22 04/08/22 16:17 17:28 20:25 Temperature 36.5 C Heart Rate 92 Heart Rate [ 91 Brachial] Respiratory 20 20 Rate Blood Pressure 160/69 H [Right Brachial artery] O2 Saturation 93 95 If not protocol 2 : Oxygen Flow, liters/minute 04/09/22 04/09/22 04/09/22 01:26 01:32 01:46 Temperature 36.8 C Heart Rate Heart Rate [ 104 H Brachial] Respiratory 20 Rate Blood Pressure 157/77 H [Right Brachial artery] O2 Saturation 86 L 92 94 If not protocol 2 2 : Oxygen Flow, liters/minute 04/09/22 04/09/22 04/09/22 07:42 09:51 11:45 Temperature 36.5 C Heart Rate Heart Rate [ 106 H Brachial] Respiratory 20 Rate Blood Pressure 149/73 H [Right Brachial artery] O2 Saturation 94 100 93 If not protocol 2 2 2 : Oxygen Flow, liters/minute 04/09/22 04/09/22 11:50 11:52 Temperature Heart Rate Heart Rate [ Brachial] Respiratory Rate Blood Pressure [Right Brachial artery] O2 Saturation 100 98 If not protocol 2 : Oxygen Flow, liters/minute Oxygen O2 Source Room air I&O (Last 24 Hrs): Intake and Output Totals x24h 04/07/22 04/08/22 04/09/22 23:59 23:59 23:59 Intake Total 1060 820 278 Output Total 1250 1950 625 Balance -190 -5760 -347 General: Alert HEENT: Mucous membr. moist/pink Neck: Supple Neuro: Alert, Other (Poor memory) Cardiovascular: Regular rate Respiratory: Wheezes Abdomen: Soft Extremities: No edema - Results Results: Laboratory Results WBC 11.6 x10^3/uL (4.8-10.8) H 04/09/22 07:05 RBC 3.57 10^6/uL (4.70-6.10) L 04/09/22 07:05 Hgb 11.7 g/dL (14.0-18.0) L 04/09/22 07:05 Hct 32.9 % (42.0-52.0) L 04/09/22 07:05 MCV 92.2 fL (80.0-94.0) 04/09/22 07:05 MCH 32.8 pg (27.0-31.0) H 04/09/22 07:05 MCHC 35.6 g/dL (32.0-36.0) 04/09/22 07:05 RDW 12.8 % (12.0-15.0) 04/09/22 07:05 Plt Count 215 10^3/uL (130-450) 04/09/22 07:05 MPV 8.7 fL (7.4-11.4) 04/09/22 07:05 Reticulocyte % (Auto) 1.08 % (0.5-2.3) 04/06/22 11:25 Neut # (Auto) 9.1 10^3/uL (1.5-6.6) H 04/09/22 07:05 Lymph # (Auto) 0.9 10^3/uL (1.5-3.5) L 04/09/22 07:05 [place] # (Auto) 1.1 10^3/uL (0.0-1.0) H 04/09/22 07:05 Eos # (Auto) 0.0 10^3/uL (0.0-0.7) 04/09/22 07:05 Baso # (Auto) 0.0 10^3/uL (0.0-0.1) 04/09/22 07:05 Absolute Nucleated RBC 0.00 x10^3/uL 04/09/22 07:05 Total Counted 100 04/05/22 04:29 Band Neuts % (Manual) 3 % (0-10) 04/05/22 04:29 Reactive Lymphs % (Man) 2 % 04/04/22 12:03 Abnorm Lymph % (Manual) 0 % 04/05/22 04:29 Nucleated RBC % 0.0 /100WBC 04/09/22 07:05 Neutrophils # (Manual) 7.8 10^3/uL (1.5-6.6) H 04/05/22 04:29 Lymphocytes # (Manual) 1.0 10^3/uL (1.5-3.5) L 04/05/22 04:29 Monocytes # (Manual) 1.0 10^3/uL (0.0-1.0) 04/05/22 04:29 Eosinophils # (Manual) 0.0 10^3/uL (0-0.7) 04/05/22 04:29 Basophils # (Manual) 0.0 10^3/uL (0-0.1) 04/05/22 04:29 Differential Comment MANUAL DIFFERENTIAL 04/05/22 04:29 Manual Slide Review Indicated 04/04/22 12:03 WBC Morphology NORMAL APPEARANCE (NORMAL) 04/05/22 04:29 Platelet Estimate NORMAL (130-450,000) (NORMAL) 04/05/22 04:29 Platelet Morphology NORMAL APPEARANCE (NORMAL) 04/05/22 04:29 RBC Morph Micro Appear NORMAL APPEARANCE (NORMAL) 04/05/22 04:29 Absolute Retic 0.039 10^6/uL (0.020-0.110) 04/06/22 11:25 PT 11.9 secs (9.9-12.6) 04/04/22 12:03 INR 1.1 (0.8-1.2) 04/04/22 12:03 VBG pH 7.461 (7.31-7.41) H 04/07/22 05:32 VBG pCO2 31.9 mmHg (41-51) L 04/04/22 12:03 VBG pO2 51.2 mmHg (25-47) H 04/04/22 12:03 VBG HCO3 22.5 mmol/L (23-28) L 04/04/22 12:03 VBG Total CO2 23.5 mmol/L (24-29) L 04/04/22 12:03 VBG O2 Saturation 90.0 % (60-80) H 04/04/22 12:03 VBG Base Excess -0.3 mmol/L (-2 - +2) 04/04/22 12:03 Ionized Calcium 1.09 mmol/L (1.15-1.33) L 04/07/22 05:32 Sodium 125 mmol/L (135-145) L 04/09/22 07:05 Potassium 3.4 mmol/L (3.5-5.0) L 04/09/22 07:05 Chloride 93 mmol/L (101-111) L 04/09/22 07:05 Carbon Dioxide 24 mmol/L (21-32) 04/09/22 07:05 Anion Gap 8.0 (6-13) 04/09/22 07:05 BUN 7 mg/dL (6-20) 04/09/22 07:05 Creatinine 0.5 mg/dL (0.6-1.2) L 04/09/22 07:05 Estimated GFR (MDRD) 166 (>89) 04/09/22 07:05 Glucose 111 mg/dL (70-100) H 04/09/22 07:05 Serum Osmolality 230 mOsmol/kg (280-301) L 04/04/22 16:05 Calcium 7.8 mg/dL (8.5-10.3) L 04/09/22 07:05 Phosphorus 1.9 mg/dL (2.5-4.6) L 04/07/22 05:32 Magnesium 1.9 mg/dL (1.7-2.8) 04/07/22 05:32 Iron 77 ug/dL (45-182) 04/06/22 11:25 TIBC 199 ug/dL (250-450) L 04/06/22 11:25 % Saturation 39 % (20-50) 04/06/22 11:25 Transferrin 142 mg/dL (180-329) L 04/06/22 11:25 Ferritin 1453.3 ng/mL (23.9-336.2) H 04/06/22 11:25 Total Bilirubin 1.1 mg/dL (0.2-1.0) H 04/08/22 05:20 Direct Bilirubin 0.2 mg/dL (0.1-0.5) 04/08/22 05:20 AST 75 IU/L (10-42) H 04/08/22 05:20 ALT 84 IU/L (10-60) H 04/08/22 05:20 Alkaline Phosphatase 64 IU/L (42-121) 04/08/22 05:20 Ammonia 27.8 umol/L (7-35) 04/09/22 07:05 Lactate Dehydrogenase 249 IU/L (91-225) H 04/06/22 11:25 Total Creatine Kinase 329 IU/L (22-269) H 04/07/22 05:32 CK-MB (CK-2) 7.8 ng/mL (0.6-6.3) H 04/05/22 04:29 Total Protein 6.3 g/dL (6.7-8.2) L 04/08/22 05:20 Albumin 2.7 g/dL (3.2-5.5) L 04/08/22 05:20 Globulin 3.6 g/dL (2.1-4.2) 04/08/22 05:20 Albumin/Globulin Ratio 0.9 (1.0-2.2) L 04/04/22 12:03 Vitamin B12 1079 pg/mL (180-914) H 04/06/22 11:25 TSH 0.88 uIU/mL (0.34-5.60) 04/04/22 12:03 Urine Color DARK YELLOW 04/04/22 15:13 Urine Clarity CLEAR (CLEAR) 04/04/22 15:13 Urine pH 6.0 PH (5.0-7.5) 04/04/22 15:13 Ur Specific [place] 1.015 (1.002-1.030) 04/04/22 15:13 Urine Protein NEGATIVE mg/dL (NEGATIVE) 04/04/22 15:13 Urine Glucose (UA) NEGATIVE mg/dL (NEGATIVE) 04/04/22 15:13 Urine Ketones 15 mg/dL (NEGATIVE) H 04/04/22 15:13 Urine Occult Blood NEGATIVE (NEGATIVE) 04/04/22 15:13 Urine Nitrite NEGATIVE (NEGATIVE) 04/04/22 15:13 Urine Bilirubin NEGATIVE (NEGATIVE) 04/04/22 15:13 Urine Urobilinogen 0.2 (NORMAL) E.U./dL (NORMAL) 04/04/22 15:13 Ur Leukocyte Esterase NEGATIVE (NEGATIVE) 04/04/22 15:13 Ur Microscopic Review NOT INDICATED 04/04/22 15:13 Urine Culture Comments NOT INDICATED 04/04/22 15:13 Urine Osmolality 518 mOsmol/kg (.) 04/04/22 16:05 Nasal Adenovirus (PCR) NOT DETECTED 04/04/22 12:24 Nasal B. parapertussis DNA (PCR) NOT DETECTED 04/04/22 12:24 Nasal Coronavir 229E PCR NOT DETECTED 04/04/22 12:24 Nasal Coronavir HKU1 PCR NOT DETECTED 04/04/22 12:24 Nasal Coronavir NL63 PCR NOT DETECTED 04/04/22 12:24 Nasal Coronavir OC43 PCR NOT DETECTED 04/04/22 12:24 Nasal Enterovir/Rhinovir PCR NOT DETECTED 04/04/22 12:24 Nasal Influ A H1 2009 PCR DETECTED A 04/04/22 12:24 Nasal Influenza B PCR NOT DETECTED 04/04/22 12:24 Nasal Parainfluen 1 PCR NOT DETECTED 04/04/22 12:24 Nasal Parainfluen 2 PCR NOT DETECTED 04/04/22 12:24 Nasal Parainfluen 3 PCR NOT DETECTED 04/04/22 12:24 Nasal Parainfluen 4 PCR NOT DETECTED 04/04/22 12:24 Nasal RSV (PCR) NOT DETECTED 04/04/22 12:24 Nasal Screen MRSA (PCR) NEGATIVE (NEGATIVE) 04/04/22 23:30 Nasal B.pertussis DNA PCR NOT DETECTED 04/04/22 12:24 Nasal C.pneumoniae (PCR) NOT DETECTED 04/04/22 12:24 [place] Human Metapneumo PCR NOT DETECTED 04/04/22 12:24 Nasal M.pneumoniae (PCR) NOT DETECTED 04/04/22 12:24 Nasal SARS-CoV-2 (PCR) NOT DETECTED 04/04/22 12:24 Stl Occult Blood (IFOB) POSITIVE (NEGATIVE) A 04/05/22 19:10 Stl C. diff Tox B Gene NEGATIVE (NEGATIVE) 04/05/22 19:10 Urine Opiates Screen NEGATIVE (NEGATIVE) 04/04/22 15:13 Ur Oxycodone Screen NEGATIVE (NEGATIVE) 04/04/22 15:13 Urine Methadone Screen NEGATIVE (NEGATIVE) 04/04/22 15:13 Ur Propoxyphene Screen NEGATIVE (NEGATIVE) 04/04/22 15:13 Ur Barbiturates Screen NEGATIVE (NEGATIVE) 04/04/22 15:13 Ur Tricyclics Screen NEGATIVE (NEGATIVE) 04/04/22 15:13 Ur Phencyclidine Scrn NEGATIVE (NEGATIVE) 04/04/22 15:13 Ur Amphetamine Screen NEGATIVE (NEGATIVE) 04/04/22 15:13 U Methamphetamines Scrn NEGATIVE (NEGATIVE) 04/04/22 15:13 U Benzodiazepines Scrn NEGATIVE (NEGATIVE) 04/04/22 15:13 Urine Cocaine Screen NEGATIVE (NEGATIVE) 04/04/22 15:13 U Cannabinoids Screen NEGATIVE (NEGATIVE) 04/04/22 15:13 Ethyl Alcohol < 5.0 mg/dL 04/04/22 12:03
[2022-04-09] MEDS: buPROPion SR 100 MG TABLET PO SCH (21:08)
[2022-04-10] MEDS: SODIUM CHLORIDE FLUSH 0.9% 10 ML SYRINGE IVP SCH ×3 (01:05→17:01)
[2022-04-10 05:45] LABS: BASOPHILS % (AUTO) 0.1 %; EOSINOPHILS % (AUTO) 0.1 %; HCT - HEMATOCRIT 34.3 % (42.0-52.0); HGB - HEMOGLOBIN 11.8 g/dL (14.0-18.0); LYMPHOCYTES # (AUTO) 0.8 10^3/uL (1.5-3.5); LYMPHOCYTES % (AUTO) 5.7 %; MEAN CORPUSCULAR HEMOGLOBIN 31.9 pg (27.0-31.0); MEAN CORPUSCULAR HGB CONC 34.4 g/dL (32.0-36.0); MEAN CORPUSCULAR VOLUME 92.7 fL (80.0-94.0); MEAN PLATELET VOLUME 9.1 fL (7.4-11.4); MONOCYTES # (AUTO) 1.2 10^3/uL (0.0-1.0); MONOCYTES % (AUTO) 8.8 %; NEUTROPHILS % (AUTO) 82.2 %; PLT - PLATELET COUNT 255 10^3/uL (130-450); RED CELL DISTRIBUTION WIDTH 12.9 % (12.0-15.0); WHITE BLOOD COUNT 13.5 x10^3/uL (4.8-10.8)
[2022-04-10 05:52] LABS: CALCIUM 7.9 mg/dL (8.5-10.3); CREATININE 0.6 mg/dL (0.6-1.2); POTASSIUM 3.7 mmol/L (3.5-5.0)
[2022-04-10] MEDS: IPRATROPIUM/ALBUTEROL 3 ML NEB INH SCH ×3 (06:52→19:30)
[2022-04-10] MEDS: PANTOPRAZOLE 40 MG TABLET PO SCH ×2 (07:05→17:00)
[2022-04-10] MEDS: cefTRIAXone 1 GM in SODIUM CHLORIDE 0.9% MINIBAG 100 ML IV SCH (08:29)
[2022-04-10] MEDS: PRENATAL VITAMIN TABLET PO SCH (08:30)
[2022-04-10] MEDS: guaiFENesin 600 MG TABLET PO SCH ×2 (08:30→21:16)
[2022-04-10] MEDS: LOSARTAN 50 MG TABLET PO SCH (08:31)
[2022-04-10] MEDS: AZITHROMYCIN 250 MG TABLET PO SCH (08:31)
[2022-04-10] MEDS: THIAMINE 100 MG TABLET PO SCH (08:32)
[2022-04-10] MEDS: NICOTINE 14 MG PATCH TOP SCH (08:33)
[2022-04-10] MEDS: ZINC OXIDE 20% OINT 30 GM TUBE TOP SCH ×2 (08:34→21:16)
[2022-04-10] MEDS: OSELTAMIVIR 75 MG CAPSULE PO SCH ×2 (10:32→21:16)
--- NOTE | 2022-04-10 16:20 | PROVIDER PROGRESS NOTE ---
Assessment/Plan - Problem List (1) Orthostatic hypotension Assessment/Plan: After details obtained from , of pt having frequent falls at home, orthostatic VS were ordered. Yesterday his syst BP dropped from 150 supine, to 118 standing. Today, this has improved to only a 15 mmHg drop from supine to standing. Plan: He was on Losartan 50 mg daily for HTN, which I decreased down to 25 mg daily. He needs further work with PT and OT to determine where a safe discharge location will be for him. (2) Hyponatremia Assessment/Plan: Most likely due to excessive beer intake, and poor nutrition. This affects the kidney and causes dilutional hyponatremia secondary to reduced clearance of water from his body. 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 He received 100 mL of hypertonic saline in the ED and Na stayed at 106. Then we started him on Hypertonic NS. Monitored sodium carefully and he went from 106- >110>> 114>> 117. We then stopped the Hypertonic Saline and switch him over to Normal Saline since he was awake and appropriate. Na then was 120 >> plateaued at 125-127. Plan: See how he does on fluid restriction of 1000 cc free water daily. Regular diet. He is allowed to salt his food, and family wants to bring him a roast for [place] dinner tomorrow and I okayed that. We placed a Home Health referral to get a bath aide, PT and OT, and hospital social worker, but not sure if he will go to a SNF or home with Home Health services. (3) Alcoholism Conclusion/Plan: He drank about 15 beers a day, has not had a beer in several days. The has always been concerned about stopping his beer drinking by restricting it suddenly, because she felt he would go into withdrawal and possibly have seizures and . Thiamine given in the ER. So far no tremors, no tachycardia, no hypertension as signs of withdrawal. He is very confused, but CIWA score is 3. When I spoke to him, with , daughter and son-in-law at bedside, that it will be hard to break that habit of 15 beers a day, since he has done that for many years, he said he will "deal with it" and verbally promised to stop drinking so much, however, he was more interested in watching the movie on TV than our conversation. This gentleman has a history of refusing any type of intervention. Plan: He has been started on vitamin, and p.o. thiamine SW consulted to suggest more resources for the family to have, to stop his alcohol abuse. Will now cancel CIWA protocol, since withdrawal is not likely this many days out from his last alcohol intake. (4) Cognitive Impairment In 04/08, he was found to be getting OOB 5 times, after reminders not to do that by himself. The SUGAR REFINERY SUPERVISOR noted that he was very unsteady on his feet. I did a mini-mental exam at bedside and he could not remember he was in a hospital, only that he was in [place], he said I was "the one in charge of this place" but could not say Provider or Doctor, and only remembered 1.5 of 3 words after 5 min. When asked why he is getting out of bed, he said "because I am not hooked up to the cable, and wanted to come out into hallway". He did have a CT head done at admission and it showed periventricular and deep white matter hypodensities consistent with microvascular ischemic changes. I suspect he has Wernicke's encephalopathy from years of daily alcohol abuse. He probably also has ataxia from alcohol abuse. I discussed these diagnoses with the pt and at bedside, and told them that he is no longer alowed to drive and that a DMV form will be submitted. The patient commented that he "can drive just fine". On 04/09 a cognitive eval was ordered and done by OT and he scored 12/30 with extremely poor working memory. Plan: PT and OT to continue working with him. PT and OT recommend more caregiving and since he falls alot, he needs SNF for optimum location for rehab, until he improves. and family do not want him at a SNF a long distance away, because they want a visit him every day, since they think that he will decompensate if he does not have familiar faces to see/visit him every day Ammonia level to be followed intermittently. If elevated will start Lactulose. Continue management to keep serum Sodium in a normal range. Continue O2 to keep sats 88% or higher. Will now cancel CIWA protocol, since withdrawal is not k=likely this many days out from his last alcohol intake. I decrease or stopped narcotics, which could add to confusion. A DMV form was submitted for no more driving a vehicle. (4) COPD (chronic obstructive pulmonary disease) Conclusion/Plan: This pt is a smoker of 1 PPD of cigarettes for many decades. He presented with saturation of 99% on room air. But as his admission continued and he received iv fluids, he has needed suppl 02. There has been fine wheezing and a worse (than usual) cough. He was not on any bronchodilators at home. He appears to be without exacerbation. Solu-Medrol 40 mg IV every 8 hours was given for 3 doses. He still requires 1-2 L nasal cannula to maintain O2 sat at 92%. When we take off his oxygen he drops down to below 85%. Plan: Mucinex roland and Robitussin prn were started, continue these DuoNeb 4 times daily was tapered to TID scheduled Continue suppl O2, target saturation 88% or higher Oxygen desaturation study planned on the day he is discharged He will also need pulmonary function studies in the outpatient setting. That if he agrees, since this gentleman has a history of refusing any type of intervention. Qualifiers: COPD type: emphysema Emphysema type: unspecified Qualified Code(s): J43.9 - Emphysema, unspecified (5) Pneumonia Conclusion/Plan: He presented with a cough, had a normal WBC, but his CXR at admission was read as having bilateral patchy infiltrates. A CXR was repeated after admission and showed definite bilateral infiltrates. He still has a cough, which is slowly improving. Plan: We added Mucinex for pulmonary toilet and Robitussin AC for cough suppression. We ordered a sputum for culture>> prelim result shows Gram Neg Bacilli>> final shows mixed oral ngozi. Thus he will finish his empiric po Zithromax and the empiric iv Ceftriaxone will be done after 7 days. (6) Influenza infection He tested Influenza A (+) at admission and still has a cough and intermittent O2 desats Plan: We ordered Tamiflu, 10 doses total. (7) Sacral decub He has a Stage 1 sacral decubitus wound, brought to my attention and photos were reviewed The said he sits all day. Plan: Begin topical care, daily dressing changes. If he is incontinent of urine he may need a Malave (8) Hypertension Conclusion/Plan: He took benazepril at home. Zestril was 5 mg daily, increased 10 mg earlier this admission, to control HTN. Then I stopped Zestril due to his dry cough, and started Losartan in it's place Plan: I decreased Losartan dosing due to orthostasis. Plan on DCh on ARB not SAAD, because his cough could be from SAAD Qualifiers: Hypertension type: primary hypertension Qualified Code(s): I10 - Essential (primary) hypertension (9) Rhabdomyolysis Conclusion/Plan: The told me that pt falls frequently. After the normal saline and hypertonic saline, his CK is going down from CK 1788>> 949>> 501>> 200 Plan: Since we are now restricting free water fluids, will watch CK intermittently, so as not to let CK rise Qualifiers: Rhabdomyolysis type: non-traumatic Qualified Code(s): M62.82 - Rhabdomyolysis (10) Anemia with guaic positive stool His Iron panel showed low TIBC and Transferrin. He is already on a v itamin and on thiamine (and Thiamine level was not low) Plan: Follow H/H daily, if it is dropping now, it is no longer from hemodilution. We stopped Lovenox sq daily and use SCDs for DVT prophylaxis. We started empiric Protonix po BID Depending on his desire to comply in the outpatient setting, he would need an outpatient colonoscopy and EGD, or as an Inpt if there is signs of a rapid bleed. (11) Tobacco use Reports smoking 1 pack a day, none since being admitted, is getting a Nicotine patch. Plan: Will start Wellbutrin (since son-in-law reports that pt is depressed and has nothing to do all day, which the pt agreed was true). I offered to continue nicotine patch at the time of discharge, he and the family all agreed it will be needed. - Current Meds Current Meds: Current Medications Generic Name Dose Route Start Last Admin Trade Name Freq PRN Reason Stop Dose Admin Albuterol/Ipratropium 3 ml 04/08/22 10:00 04/10/22 14:32 Ipratropium/Albuterol 3 Ml Neb INH 3 ml RTTID ROLAND Administration Azithromycin 250 mg 04/07/22 09:00 04/10/22 08:31 Azithromycin 250 Mg Tablet PO 04/11/22 00:01 250 mg DAILY ROLAND Administration Bupropion HCl 100 mg 04/07/22 21:00 04/09/22 21:08 Bupropion Sr 100 Mg Tablet PO 100 mg QPM ROLAND Administration Guaifenesin 600 mg 04/06/22 12:00 04/10/22 08:30 Guaifenesin 600 Mg Tablet PO 600 mg BID ROLAND Administration Guaifenesin/Codeine Phosphate 5 ml 04/06/22 17:21 04/08/22 17:17 Guaifenesin/Codeine 5 Ml Udc PO 5 ml Q6HR PRN Administration Cough Ceftriaxone Sodium 1 gm/ 100 mls @ 200 mls/hr 04/07/22 09:00 04/10/22 10:28 Sodium Chloride IV Infused DAILY ROLAND Infusion Losartan Potassium 25 mg 04/10/22 09:00 04/10/22 08:31 Losartan 50 Mg Tablet PO 25 mg DAILY ROLAND Administration Multi-Ingredient Ointment 1 applic 04/04/22 23:45 04/09/22 13:34 Zinc Oxide 20% Oint 30 Gm Tube TOP 1 applic PRN PRN Administration Skin Care Multi-Ingredient Ointment 1 applic 04/08/22 21:00 04/10/22 08:34 Zinc Oxide 20% Oint 30 Gm Tube TOP 1 applic BID ROLAND Administration Nicotine 1 patch 04/05/22 12:00 04/10/22 08:33 Nicotine 14 Mg Patch TOP 1 patch DAILY ROLAND Administration Oseltamivir Phosphate 75 mg 04/06/22 21:00 04/10/22 10:32 Oseltamivir 75 Mg Capsule PO 04/11/22 09:01 75 mg BID ROLAND Administration Pantoprazole Sodium 40 mg 04/07/22 08:00 04/10/22 07:05 Pantoprazole 40 Mg Tablet PO 40 mg BIDAC ROLAND Administration Multivit/Folic Acid/Iron 1 tab 04/05/22 08:00 04/10/22 08:30 Vitamin Tablet PO 1 tab DAILYWM ROLAND Administration Sodium Chloride 10 ml 04/04/22 17:00 04/10/22 08:32 Sodium Chloride Flush 0.9% 10 Ml Syringe IVP 10 ml 0100,0900,1700 ROLAND Administration Sodium Chloride 10 ml 04/04/22 15:40 04/09/22 10:33 Sodium Chloride Flush 0.9% 10 Ml Syringe IVP 10 ml PRN PRN Administration NEEDED PER PROVIDER ORDERS Thiamine HCl 100 mg 04/05/22 15:00 04/10/22 08:32 Thiamine 100 Mg Tablet PO 100 mg DAILY ROLAND Administration - Lab Result Fish Bone Diagrams: 04/10/22 05:35 04/10/22 05:35 - Additional Planning My Orders: My Active Orders 04/10/22 09:00 Losartan [Cozaar] 25 mg PO DAILY Subjective - Subjective Patient Reports: Resting Comfortably Nursing Reports: Other ( at bedside and wants him to go to SNF, close to their home) Objective Vital Signs: Vital Signs - 24 hr 04/09/22 04/09/22 04/10/22 18:00 19:30 00:10 Temperature 36.5 C 36.5 C Heart Rate 96 Heart Rate [ 93 95 Brachial] Respiratory 18 20 23 Rate Blood Pressure 145/65 H 136/78 H [Right Brachial artery] O2 Saturation 100 90 L If not protocol : Oxygen Flow, liters/minute 04/10/22 04/10/22 04/10/22 06:55 06:56 08:46 Temperature 36.7 C Heart Rate 89 Heart Rate [ 100 Brachial] Respiratory 17 24 Rate Blood Pressure 152/72 H [Right Brachial artery] O2 Saturation 91 L If not protocol 2 2 2 : Oxygen Flow, liters/minute 04/10/22 04/10/22 14:32 15:57 Temperature 36.7 C Heart Rate 79 Heart Rate [ 97 Brachial] Respiratory 19 18 Rate Blood Pressure 129/65 [Right Brachial artery] O2 Saturation 93 If not protocol 4 2 : Oxygen Flow, liters/minute Oxygen O2 Source Nasal cannula I&O (Last 24 Hrs): Intake and Output Totals x24h 04/08/22 04/09/22 04/10/22 23:59 23:59 23:59 Intake Total 820 578 590 Output Total 1950 825 650 Balance -1130 -247 -60 General: Alert, No acute distress HEENT: Mucous membr. moist/pink Neck: Supple Neuro: Alert, Disoriented, Non Focal Cardiovascular: Regular rate Respiratory: No respiratory distress (wearing O2 via n.c.), Wheezes (scattered) Extremities: No clubbing, No edema - Results Results: Laboratory Results WBC 13.5 x10^3/uL (4.8-10.8) H 04/10/22 05:35 RBC 3.70 10^6/uL (4.70-6.10) L 04/10/22 05:35 Hgb 11.8 g/dL (14.0-18.0) L 04/10/22 05:35 Hct 34.3 % (42.0-52.0) L 04/10/22 05:35 MCV 92.7 fL (80.0-94.0) 04/10/22 05:35 MCH 31.9 pg (27.0-31.0) H 04/10/22 05:35 MCHC 34.4 g/dL (32.0-36.0) 04/10/22 05:35 RDW 12.9 % (12.0-15.0) 04/10/22 05:35 Plt Count 255 10^3/uL (130-450) 04/10/22 05:35 MPV 9.1 fL (7.4-11.4) 04/10/22 05:35 Reticulocyte % (Auto) 1.08 % (0.5-2.3) 04/06/22 11:25 Neut # (Auto) 11.0 10^3/uL (1.5-6.6) H 04/10/22 05:35 Lymph # (Auto) 0.8 10^3/uL (1.5-3.5) L 04/10/22 05:35 [place] # (Auto) 1.2 10^3/uL (0.0-1.0) H 04/10/22 05:35 Eos # (Auto) 0.0 10^3/uL (0.0-0.7) 04/10/22 05:35 Baso # (Auto) 0.0 10^3/uL (0.0-0.1) 04/10/22 05:35 Absolute Nucleated RBC 0.00 x10^3/uL 04/10/22 05:35 Total Counted 100 04/05/22 04:29 Band Neuts % (Manual) 3 % (0-10) 04/05/22 04:29 Reactive Lymphs % (Man) 2 % 04/04/22 12:03 Abnorm Lymph % (Manual) 0 % 04/05/22 04:29 Nucleated RBC % 0.0 /100WBC 04/10/22 05:35 Neutrophils # (Manual) 7.8 10^3/uL (1.5-6.6) H 04/05/22 04:29 Lymphocytes # (Manual) 1.0 10^3/uL (1.5-3.5) L 04/05/22 04:29 Monocytes # (Manual) 1.0 10^3/uL (0.0-1.0) 04/05/22 04:29 Eosinophils # (Manual) 0.0 10^3/uL (0-0.7) 04/05/22 04:29 Basophils # (Manual) 0.0 10^3/uL (0-0.1) 04/05/22 04:29 Differential Comment MANUAL DIFFERENTIAL 04/05/22 04:29 Manual Slide Review Indicated 04/04/22 12:03 WBC Morphology NORMAL APPEARANCE (NORMAL) 04/05/22 04:29 Platelet Estimate NORMAL (130-450,000) (NORMAL) 04/05/22 04:29 Platelet Morphology NORMAL APPEARANCE (NORMAL) 04/05/22 04:29 RBC Morph Micro Appear NORMAL APPEARANCE (NORMAL) 04/05/22 04:29 Absolute Retic 0.039 10^6/uL (0.020-0.110) 04/06/22 11:25 PT 11.9 secs (9.9-12.6) 04/04/22 12:03 INR 1.1 (0.8-1.2) 04/04/22 12:03 VBG pH 7.461 (7.31-7.41) H 04/07/22 05:32 VBG pCO2 31.9 mmHg (41-51) L 04/04/22 12:03 VBG pO2 51.2 mmHg (25-47) H 04/04/22 12:03 VBG HCO3 22.5 mmol/L (23-28) L 04/04/22 12:03 VBG Total CO2 23.5 mmol/L (24-29) L 04/04/22 12:03 VBG O2 Saturation 90.0 % (60-80) H 04/04/22 12:03 VBG Base Excess -0.3 mmol/L (-2 - +2) 04/04/22 12:03 Ionized Calcium 1.09 mmol/L (1.15-1.33) L 04/07/22 05:32 Sodium 127 mmol/L (135-145) L 04/10/22 05:35 Potassium 3.7 mmol/L (3.5-5.0) 04/10/22 05:35 Chloride 94 mmol/L (101-111) L 04/10/22 05:35 Carbon Dioxide 24 mmol/L (21-32) 04/10/22 05:35 Anion Gap 9.0 (6-13) 04/10/22 05:35 BUN 8 mg/dL (6-20) 04/10/22 05:35 Creatinine 0.6 mg/dL (0.6-1.2) 04/10/22 05:35 Estimated GFR (MDRD) 134 (>89) 04/10/22 05:35 Glucose 113 mg/dL (70-100) H 04/10/22 05:35 Serum Osmolality 230 mOsmol/kg (280-301) L 04/04/22 16:05 Calcium 7.9 mg/dL (8.5-10.3) L 04/10/22 05:35 Phosphorus 1.9 mg/dL (2.5-4.6) L 04/07/22 05:32 Magnesium 1.9 mg/dL (1.7-2.8) 04/07/22 05:32 Iron 77 ug/dL (45-182) 04/06/22 11:25 TIBC 199 ug/dL (250-450) L 04/06/22 11:25 % Saturation 39 % (20-50) 04/06/22 11:25 Transferrin 142 mg/dL (180-329) L 04/06/22 11:25 Ferritin 1453.3 ng/mL (23.9-336.2) H 04/06/22 11:25 Total Bilirubin 1.1 mg/dL (0.2-1.0) H 04/08/22 05:20 Direct Bilirubin 0.2 mg/dL (0.1-0.5) 04/08/22 05:20 AST 75 IU/L (10-42) H 04/08/22 05:20 ALT 84 IU/L (10-60) H 04/08/22 05:20 Alkaline Phosphatase 64 IU/L (42-121) 04/08/22 05:20 Ammonia 14.6 umol/L (7-35) 04/10/22 05:35 Lactate Dehydrogenase 249 IU/L (91-225) H 04/06/22 11:25 Total Creatine Kinase 329 IU/L (22-269) H 04/07/22 05:32 CK-MB (CK-2) 7.8 ng/mL (0.6-6.3) H 04/05/22 04:29 Total Protein 6.3 g/dL (6.7-8.2) L 04/08/22 05:20 Albumin 2.7 g/dL (3.2-5.5) L 04/08/22 05:20 Globulin 3.6 g/dL (2.1-4.2) 04/08/22 05:20 Albumin/Globulin Ratio 0.9 (1.0-2.2) L 04/04/22 12:03 Vitamin B12 1079 pg/mL (180-914) H 04/06/22 11:25 TSH 0.88 uIU/mL (0.34-5.60) 04/04/22 12:03 Urine Color DARK YELLOW 04/04/22 15:13 Urine Clarity CLEAR (CLEAR) 04/04/22 15:13 Urine pH 6.0 PH (5.0-7.5) 04/04/22 15:13 Ur Specific [place] 1.015 (1.002-1.030) 04/04/22 15:13 Urine Protein NEGATIVE mg/dL (NEGATIVE) 04/04/22 15:13 Urine Glucose (UA) NEGATIVE mg/dL (NEGATIVE) 04/04/22 15:13 Urine Ketones 15 mg/dL (NEGATIVE) H 04/04/22 15:13 Urine Occult Blood NEGATIVE (NEGATIVE) 04/04/22 15:13 Urine Nitrite NEGATIVE (NEGATIVE) 04/04/22 15:13 Urine Bilirubin NEGATIVE (NEGATIVE) 04/04/22 15:13 Urine Urobilinogen 0.2 (NORMAL) E.U./dL (NORMAL) 04/04/22 15:13 Ur Leukocyte Esterase NEGATIVE (NEGATIVE) 04/04/22 15:13 Ur Microscopic Review NOT INDICATED 04/04/22 15:13 Urine Culture Comments NOT INDICATED 04/04/22 15:13 Urine Osmolality 518 mOsmol/kg (.) 04/04/22 16:05 Nasal Adenovirus (PCR) NOT DETECTED 04/04/22 12:24 Nasal B. parapertussis DNA (PCR) NOT DETECTED 04/04/22 12:24 Nasal Coronavir 229E PCR NOT DETECTED 04/04/22 12:24 Nasal Coronavir HKU1 PCR NOT DETECTED 04/04/22 12:24 Nasal Coronavir NL63 PCR NOT DETECTED 04/04/22 12:24 Nasal Coronavir OC43 PCR NOT DETECTED 04/04/22 12:24 Nasal Enterovir/Rhinovir PCR NOT DETECTED 04/04/22 12:24 Nasal Influ A H1 2009 PCR DETECTED A 04/04/22 12:24 Nasal Influenza B PCR NOT DETECTED 04/04/22 12:24 Nasal Parainfluen 1 PCR NOT DETECTED 04/04/22 12:24 Nasal Parainfluen 2 PCR NOT DETECTED 04/04/22 12:24 Nasal Parainfluen 3 PCR NOT DETECTED 04/04/22 12:24 Nasal Parainfluen 4 PCR NOT DETECTED 04/04/22 12:24 Nasal RSV (PCR) NOT DETECTED 04/04/22 12:24 Nasal Screen MRSA (PCR) NEGATIVE (NEGATIVE) 04/04/22 23:30 Nasal B.pertussis DNA PCR NOT DETECTED 04/04/22 12:24 Nasal C.pneumoniae (PCR) NOT DETECTED 04/04/22 12:24 [place] Human Metapneumo PCR NOT DETECTED 04/04/22 12:24 Nasal M.pneumoniae (PCR) NOT DETECTED 04/04/22 12:24 Nasal SARS-CoV-2 (PCR) NOT DETECTED 04/04/22 12:24 Stl Occult Blood (IFOB) POSITIVE (NEGATIVE) A 04/05/22 19:10 Stl C. diff Tox B Gene NEGATIVE (NEGATIVE) 04/05/22 19:10 Urine Opiates Screen NEGATIVE (NEGATIVE) 04/04/22 15:13 Ur Oxycodone Screen NEGATIVE (NEGATIVE) 04/04/22 15:13 Urine Methadone Screen NEGATIVE (NEGATIVE) 04/04/22 15:13 Ur Propoxyphene Screen NEGATIVE (NEGATIVE) 04/04/22 15:13 Ur Barbiturates Screen NEGATIVE (NEGATIVE) 04/04/22 15:13 Ur Tricyclics Screen NEGATIVE (NEGATIVE) 04/04/22 15:13 Ur Phencyclidine Scrn NEGATIVE (NEGATIVE) 04/04/22 15:13 Ur Amphetamine Screen NEGATIVE (NEGATIVE) 04/04/22 15:13 U Methamphetamines Scrn NEGATIVE (NEGATIVE) 04/04/22 15:13 U Benzodiazepines Scrn NEGATIVE (NEGATIVE) 04/04/22 15:13 Urine Cocaine Screen NEGATIVE (NEGATIVE) 04/04/22 15:13 U Cannabinoids Screen NEGATIVE (NEGATIVE) 04/04/22 15:13 Ethyl Alcohol < 5.0 mg/dL 04/04/22 12:03
[2022-04-10] MEDS: buPROPion SR 100 MG TABLET PO SCH (21:16)
[2022-04-11] MEDS: SODIUM CHLORIDE FLUSH 0.9% 10 ML SYRINGE IVP SCH ×2 (01:49→08:46)
[2022-04-11] MEDS: IPRATROPIUM/ALBUTEROL 3 ML NEB INH SCH ×2 (06:08→11:51)
[2022-04-11] MEDS: PANTOPRAZOLE 40 MG TABLET PO SCH (06:43)
[2022-04-11 08:39] VITALS: BP 127/57
[2022-04-11] MEDS: cefTRIAXone 1 GM in SODIUM CHLORIDE 0.9% MINIBAG 100 ML IV SCH (08:43)
[2022-04-11] MEDS: PRENATAL VITAMIN TABLET PO SCH (08:49)
[2022-04-11] MEDS: NICOTINE 14 MG PATCH TOP SCH (08:50)
[2022-04-11] MEDS: OSELTAMIVIR 75 MG CAPSULE PO SCH (08:50)
[2022-04-11] MEDS: LOSARTAN 50 MG TABLET PO SCH (08:50)
[2022-04-11] MEDS: guaiFENesin 600 MG TABLET PO SCH (08:50)
[2022-04-11] MEDS: THIAMINE 100 MG TABLET PO SCH (08:50)
[2022-04-11] MEDS: ZINC OXIDE 20% OINT 30 GM TUBE TOP SCH (08:51)
--- NOTE | 2022-04-11 11:13 | Discharge Plan ---
"Discharge Plan for SNF / [facility] - Discharge Plan And Transition Orders Problem Reviewed?: Yes Disposition: 03 SNF DC/Xfer Condition: Fair Allergies and Adverse Reactions: Allergies Allergy/AdvReac Type Severity Reaction Status Date / Time Penicillins Allergy Rash Verified 06/11/17 07:03 Health Concerns: The patient was hospitalized for influenza, had a pneumonia, COPD exacerbation, and severe hyponatremia caused by beer potomania, from his history of alcohol abuse. He also has significant cognitive impairment, very poor working memory, and is no longer able to drive a vehicle or make decisions for himself. The patient is being discharged to continue rehab at the [facility] long term facility (swing bed status). Plan of Treatment: As above. Care Goals: Improvement in symptoms and stabilization are the goals. Assessment: The understands and is agreeable with the plan. - SNF / [facility] Transition Orders Admit to (Facility): [facility] SN[facility] (Swing Bed status) Under the care of (Name): Dr Zepeda Discharge Diagnosis: (1) Hyponatremia (2) Alcoholism (3) Cognitive Impairment (4) COPD with exacerbation (5) Pneumonia (6) Influenza infection (7) Sacral decubitus ulcer (8) Hypertension (9) Orthostatic hypotension (10) Rhabdomyolysis (11) Anemia (12) [place] positive stool (13) Tobacco use Medicare Certification Statement: I certify that [facility] care is medically necessary on a continuing basis for any of the conditions for which she/he is receiving care during hospitalization. Notify PCP of admission and forward orders to primary provider for signature. Weight on admission and: Daily, Weekly Call PCP immediately if weight increases by: 4 kg Other Notification Orders: Call PCP immediately if patient develops dyspnea, chest pain/tightness or edema. House Bowel Program: Yes Additional Bowel Program Orders: If no BM after 2 days, nurse may give M.O.M. 30ml PO PRN and/or ducolax Supp 1 ND and/or BRANDT 250mg P.O., and/or senna 1-2 tabs PO. On day 3 nurse may give repeat above order until residents constipation is resolved. Annual Influenza Vaccine (between Dec 14 and July 13): Yes Two-step PPD per [facility] [phone] or approved exception documents: Yes Treatments & Other Orders: Daily PT and OT Oxygen Orders: O2 via nasal cannula set at 2L/min continuously Lab Tests or X-ray Orders: BMP to check serum Sodium once a week Medication Orders: PLEASE REFER TO THE DISCHARGE MEDICATION LIST. Insulin Orders?: No - Diet Type: No added salt Texture: Regular Liquids: Thin May have monthly special meal: Yes - Therapies | Activity Therapy: Evaluation | Treat if indicated: PT, OT Rehabilitation Potential: Maximize functional status Activity: Activity as Tolerated Weight Bearing: Full Weight Assistance Devices: Walker"
--- NOTE | 2022-04-11 11:22 | DISCHARGE SUMMARY ---
Discharge Summary Admit Date: 04/04/22 Discharge Date: 04/11/22 Discharging Provider: Dr Phyllis Zepeda Primary Care Provider: Dr Raisa Garrido Code Status: Attempt Resuscitation Condition at Discharge: Fair Discharge Disposition: 03 SNF DC/Xfer - HPI History of Present Illness: LIves alone in his home with . 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 Not home until [place]. He sits at chair in computer for years now. Watches videos, reads papers, [employer]. Doesn't move. No hx of CHF or chirrosis. Refuses to see a doctor or do tests. Sees Magdalena Garrido MD and she wanted to do some tests a while back and he refused. So afer several calls where they attempted to get him to come in and he refused, they gave up. He is an alcoholic and drinks 12-15 beers a day. In the last few days, none. Both he and got a virus. Cough, congestion. He complains of WOODWARD and neck pain, diarrhea. She kept having to change him and clean him up becasue of incontinence. Gave him peptobismol. He has been eating and drinking his one meal a day like usual, no c hange in that. He has not been drinking a lot of water. She feels has been drinking his normal amount of water. However, he got to the point he couldn't stand up and fell 3 times. She and son in law would pick him up. Last night, they got him up to chair and he spent the night there. No fever, no abd pain, no chest pain. This morning, when he just could not get up out of the chair, they decided to call an ambulance. In the ER temperature was 37.6. Heart rate 99. Blood pressure 142/78. Respirations 19. 99% on room air. He is 5 foot 9 inches tall. He was alert and oriented but a poor historian for events. He was disheveled, soiled. He had a benign respiratory and abdominal exam. Both of his knees were swollen with osteoarthritis. Sodium was 106, potassium 3.9, chloride 74. BUN 20, creatinine 0.7. Glucose is 104. Calcium 7.6. Total bili 1.4. AST 161. ALT 95. Ammonia level was 16.4. CK was 1788. TSH was 0.88. White cell count was 7.5, hemoglobin 14.6, hematocrit 40. Platelets 142.Chest x-ray, head CT, and cervical spine CT were done. He has some minimal patchy bibasilar atelectasis but no acute findings of stroke, hemorrhage in the brain. We discussed the case. Differential diagnosis of why you would have a low sodium. He does not have excessive water intake. There is no medication that he is taking that would cause this. No suspicion of SIADH. In this patient, the thought is his alcohol abuse. Possibly beer potomania. The usual description is that of excessive intake of alcohol, particularly beer, and you combine that with poor dietary intake that leads to fatigue, dizziness, severe hyponatremia. I have been asked to bring him into the hospital. - HOSPITAL COURSE Hospital Course: (1) Hyponatremia This was felt to be from beer potomania. He was put on hypertonic saline then normal saline then fluids were stopped and his free water was restricted. His sodium slowly improved to the range of 125-127 at discharge. (2) COPD with exacerbation The patient is a long-standing 1.5 PPD smoker. He had a wet cough, wheezing throughout his hospital stay and was treated with nebs, IV steroids, inhaled steroids and montelukast. He was discharged to SNF to continue with Montelukast, nebulizer treatments and O2 if needed to keep saturations over 88%. (3) Pneumonia He had a cough and CXR showed infiltrates. He received Mucinex and empiric iv antibiotics which were completed before he discharged to SNF. (4) Influenza infection He tested pos for Influenza, had been suffering from poor appetite, diarrhea, and a cough before admission. He improved after receiving a complete course of Tamiflu. (5) Alcoholism He was drinking 15 beers a day. LFTs were slightly elevated and improved during his hospital stay. His Ammonia was not elevated. He was on a CIWA protocol, but had no severe alcohol withdrawal symptoms. He was started on and continued on vitamin and Thiamine. (6) Cognitive Impairment As his sodium improved, his confusion and poor memory did not. He underwent cognitive testing by OT and scored 12/30. A DMV form was submitted to restrict driving. He had ataxia and deconditioning and was able to participate with PT and OT, thus was discharged to SNF for more rehab. (7) Sacral decubitus ulcer He had a Stage 1 and Stage 2 sacral decubitus ulcer, which was treated with zinc for barrier and turning and repositioning, (8) Hypertension He had been on Benazipril at home. That was stopped as it may have added to his chronic, annoying cough. He was put on Losartan in its place. (9) Orthostatic hypotension He required iv fluids for the diarrhea and low sodium, and his BP med was only started at half dose. (10) Rhabdomyolysis He had an elevated CK at presentation, likely from being bedridden at home for over a week before this admission. With iv fluids, the CK normalized. (11) Anemia Hgb was 14.6 at admission when he was dehydrated, then it ran 11 after fluids. His Iron panel showed low TIBC and Transferrin. He did have a heme pos stool. (12) Guaic positive stool We started empiric Protonix po BID. Guaic stool test was pos. Depending on his desire to comply in the outpatient setting, he would need an outpatient colonoscopy and EGD. (13) Tobacco use He is a long-standing 1.5 PPD smoker. He received Nicotine patch 14 mg, then weaned to 7 mg at discharge to a SNF. Also, at request of family, he was started on Wellbutrin, to help with smoking cessation - ALLERGIES Allergies/Adverse Reactions: Allergies Allergy/AdvReac Type Severity Reaction Status Date / Time Penicillins Allergy Rash Verified 06/11/17 07:03 - MEDICATIONS Home Medications: Ambulatory Orders Medication Instructions Recorded Confirmed Acetaminophen [Tylenol] 650 mg PO Q4HR PRN tab 04/11/22 Benazepril HCl 40 mg PO DAILY 04/11/22 04/11/22 Ipratropium/Albuterol [Duoneb] 3 ml INH RTTID ml 04/11/22 Losartan [Cozaar] 12.5 mg PO DAILY tab 04/11/22 Pantoprazole [Protonix] 40 mg PO BIDAC tab 04/11/22 Thiamine [Vitamin B-1] 100 mg PO DAILY tab 04/11/22 Zinc Oxide 20% Oint [Zinc Oxide] 1 applic TOP BID each 04/11/22 buPROPion [Wellbutrin Sr] 100 mg PO QPM tab 04/11/22 guaiFENesin [Mucinex] 600 mg PO BID tab 04/11/22 guaiFENesin/CODEINE [Robitussin AC] 5 ml PO Q6HR PRN ea 04/11/22 - PHYSICAL EXAM AT DISCHARGE General Appearance: positive: No acute distress, Alert, Other (Appears disheveled) Eyes Bilateral: positive: Normal inspection, EOMI ENT: positive: ENT inspection nml, No signs of dehydration Neck: positive: Nml inspection, No JVD Respiratory: positive: Wheezes Cardiovascular: positive: No murmur, Irregularly irregular Abdomen: positive: Non-tender, Nml bowel sounds, No distention Skin: positive: Warm, Dry Extremities: positive: Non-tender, No pedal edema Neurologic/Psychiatric: positive: Motor nml, Disoriented to person, Disoriented to place, Disoriented to time, Other (Poor memory) - LABS Result Diagrams: 04/10/22 05:35 04/10/22 05:35 - FOLLOW UP Follow Up: See PCP Dr Garrido after DCh from SNF. - TIME SPENT Time Spent in Discharge (Minutes): 50
[2022-04-12] MEDS ORDERED: LOSARTAN 50 MG TABLET PO SCH (09:00)
== END 2022-04-11 11:32 | DRG 640 ==
LOC: EDUNIT# → ED 11:37 → ICU 15:40 → MS2 04-06 14:51
PROVIDERS: ADMIT Specialist; ATTEND Internal Medicine
DX: E87.1 Hypo-osmolality and hyponatremia (principal); G93.40 Encephalopathy, unspecified; J18.9 Pneumonia, unspecified organism; E51.2 Wernicke's encephalopathy; M62.82 Rhabdomyolysis; F17.200 Nicotine dependence, unspecified, uncomplicated; Z20.822 Contact with and (suspected) exposure to COVID-19; M25.462 Effusion, left knee; M25.461 Effusion, right knee; J43.9 Emphysema, unspecified; F17.210 Nicotine dependence, cigarettes, uncomplicated; J10.1 Influenza due to other identified influenza virus with other respiratory manifestations; F10.20 Alcohol dependence, uncomplicated; R41.89 Other symptoms and signs involving cognitive functions and awareness; R27.0 Ataxia, unspecified; R53.1 Weakness; I10 Essential (primary) hypertension; L89.152 Pressure ulcer of sacral region, stage 2; I95.1 Orthostatic hypotension; E86.0 Dehydration; D64.9 Anemia, unspecified; R19.5 Other fecal abnormalities; R19.7 Diarrhea, unspecified; M17.0 Bilateral primary osteoarthritis of knee; F03.90 Unspecified dementia, unspecified severity, without behavioral disturbance, psychotic disturbance, mood disturbance, and anxiety; R32 Unspecified urinary incontinence; Z86.16 Personal history of COVID-19; R41.0 Disorientation, unspecified; Z91.81 History of falling
CPT/HCPCS: 36415; 70450; 71045; 72125; 80048; 80053; 80076; 80306; 81003; 82140; 82274; 82330; 82550; 82553; 82607; 82728; 82803; 83540; 83615; 83735; 83930; 83935; 84100; 84132; 84295; 84443; 84466; 85025; 85045; 85610; 87070; 87150; 87205; 87493; 87633; 93005; 94640; 96365; 97116; 97162; 97166; 97530; 97535; 99285; 99291; A9270; G0480; J1650; J3411; J7040; 80320; 81001; 83605; 87040; 87086

== ENCOUNTER 2022-04-11 09:07 | Inpatient (IN) | payer MEDICARE, OTHER ==
[2022-04-11] MEDS ORDERED: ACETAMINOPHEN 325 MG TABLET PO PRN (12:23)
--- NOTE | 2022-04-11 12:34 | HISTORY & PHYSICAL EXAMINATION ---
Chief Complaint - Chief Complaint Chief Complaint: Weakness and deconditioning, Ataxia History of Present Illness - Admitted From Admitted From:: [facility] from Inpt status - History of Present Illness HPI Comment/Other: This is a 66-year-old white male who has a history of alcohol abuse, he would drink 15 beers a day for many years. He has had frequent falls at home. He also has a history of tobacco abuse, was smoking one and 1/2 PPD for years. He only took a blood pressure med. The patient presented to [facility] ER with weakness, cough and malaise and was found to have profound Hyponatremia of 108, influenza A and pneumonia, with a COPD exacerbation. He was hospitalized and treated with Hypertonic saline, then Normal Saline, then free-water restriction was ordered, and he also got antibiotics, Tamiflu, COPD meds and was monitored for alcohol withdrawal, which he did not have. It was noted he had significant cognitive impairment, and he scored 12/30 on the SLUMS evaluation by OT. This was felt to be from longstanding alcohol use. He also has an ataxic gait (and walks pigeon toed chronically). He is being admitted to Swing bed status (SNF at [facility]) for PT and OT rehab. Currently, his CODE status is Full Code. History - Past Medical History Cardiovascular: reports: Hypertension Respiratory: reports: COPD Neuro: reports: Dementia Endocrine/Autoimmune: reports: None GI: reports: None : reports: Incontinence HEENT: reports: Chronic vision loss Psych: reports: None Musculoskeletal: reports: Osteoarthritis Derm: reports: None MRSA Hx?: No - Family & Social History Family History Comment/Other: Mom alive and lives in [facility]. Dad 57 years old of CHF. [place] (+). sister in [place]. She is healthy. no hx of illness. 1 daughter is healthy. Living arrangement: At home Living Situation: With spouse/s.o. 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 Lifelong drinker, lately 15 beers per day. He was in rehab once when daughter was a baby. Lifelong smoker, smoked a carton of cigs a week, oand currently 1.5 PPD. 46 years. He met his in [place] when he was in the [employer], [place] and emigrated at 10-11 years of age. No recreational substance abuse Hx. says all he does is sit all day. - Substance History Abuse: Recurrent use of substance despite neg consequences: Alcohol Dependence: Experiences withdrawal or developed tolerances: Tobacco - POLST Patient has POLST: No POLST Status: Full Code Meds/Allgy - Home Medications Home Medications: Ambulatory Orders Medication Instructions Recorded Confirmed Acetaminophen [Tylenol] 650 mg PO Q4HR PRN tab 04/11/22 Benazepril HCl 40 mg PO DAILY 04/11/22 04/11/22 Ipratropium/Albuterol [Duoneb] 3 ml INH RTTID ml 04/11/22 Losartan [Cozaar] 12.5 mg PO DAILY tab 04/11/22 Pantoprazole [Protonix] 40 mg PO BIDAC tab 04/11/22 Thiamine [Vitamin B-1] 100 mg PO DAILY tab 04/11/22 Zinc Oxide 20% Oint [Zinc Oxide] 1 applic TOP BID each 04/11/22 buPROPion [Wellbutrin Sr] 100 mg PO QPM tab 04/11/22 guaiFENesin [Mucinex] 600 mg PO BID tab 04/11/22 guaiFENesin/CODEINE [Robitussin AC] 5 ml PO Q6HR PRN ea 04/11/22 - Allergies Allergies/Adverse Reactions: Allergies Allergy/AdvReac Type Severity Reaction Status Date / Time Penicillins Allergy Rash Verified 06/11/17 07:03 Review of Systems - Constitutional Constitutional: reports: Weakness - Respiratory Respiratory: reports: Cough, Wheezing - Gastrointestinal Gastrointestinal: reports: Other (Has a sacral decubitus) - Genitourinary Genitourinary: reports: Incontinence - Neurological Neurological: reports: General weakness, Memory problems, Abnormal gait - All Other Systems All Other Systems: reports: Reviewed and negative Exam - Physical Exam General Appearance: positive: No acute distress, Alert, Other (Appears disheveled) Eyes Bilateral: positive: Normal inspection, EOMI ENT: positive: ENT inspection nml, No signs of dehydration Neck: positive: Nml inspection, No JVD Respiratory: positive: Wheezes, Other (Poor air mvm) Cardiovascular: positive: Regular rate & rhythm, No murmur Abdomen: positive: Non-tender, No distention Skin: positive: Warm, Dry Extremities: positive: Non-tender, No pedal edema Neurologic/Psychiatric: positive: Disoriented to person, Disoriented to place, Disoriented to time, Other (No tremor or nystagmus) Conclusion/Plan - Problem List (1) Physical deconditioning Conclusion/Plan: Patient was hospitalized for over a week as an inpatient. Prior to that he was also in bed for nearly a week because of mailings and was influenza positive wh en he got admitted Plan: Daily PT and OT here (2) Ataxia Conclusion/Plan: We suspect this is from longstanding alcohol abuse possibly made worse by his deconditioning Plan: Daily PT and OT are planned (3) COPD (chronic obstructive pulmonary disease) Conclusion/Plan: This patient used to smoke 1/2 packs/day until this recent inpatient hospital stay. He had a COPD exacerbation caused by the pneumonia. Plan: Will continue him on nebulized bronchodilators, scheduled BID We will continue his oral COPD medications as well (steroids, Mucinex) (4) Sacral decubitus ulcer Conclusion/Plan: When he was an Inpatient, the told us that "all he does is sit all day, drink beer and smoke". He was found to have a stage I and stage II sacral decubitus ulcer. Topical treatment was ordered Plan: Continue with topical treatment (5) Hyponatremia Conclusion/Plan: At his recent inpatient stay he presented with a sodium of 108, this slowly i mproved and plateaued at 125-127. Plan: We will check his BMP level intermittently to assure he is still close to 130. (6) Impaired cognitive ability Conclusion/Plan: As per UMS testing. He is no longer alowed to drive a vehicle and a DMV report was submitted. is entirely in agreemant. Plan: When I told the outside his room today that he is so impaired that he can no longer make medical decisions for himself, even if he refuses something, and that she will have to be the decision maker. She agreed. (7) History of alcohol abuse Conclusion/Plan: Patient used to drink 15 beers a day. This caused beer potomania and his severe hyponatremia. We also believe his heavy alcohol use has caused his cognitive impairment Plan: Continue with daily vitamin and daily thiamine orally (8) Tobacco use Conclusion/Plan: Patient was a 1 and 1/2 PPD smoker. During his inpatient stay he was on a nicotine patch at 14 mg daily, and was started on Wellbutrin to help with smo hua cessation. Plan: Will continue with Wellbutrin Will order nicotine 7 mg patch for the next 1 week - Lab Results Fish Bones: 04/12/22 04:46
[2022-04-11] MEDS ORDERED: CALAMINE/ZINC OXIDE 177 ML BOTTLE TOP PRN (14:51)
[2022-04-11] MEDS: IPRATROPIUM/ALBUTEROL 3 ML NEB INH SCH (18:24)
[2022-04-11] MEDS: buPROPion SR 100 MG TABLET PO SCH (20:27)
[2022-04-12 05:01] LABS: CALCIUM 7.7 mg/dL (8.5-10.3); CREATININE 0.5 mg/dL (0.6-1.2); POTASSIUM 3.6 mmol/L (3.5-5.0)
[2022-04-12] MEDS: IPRATROPIUM/ALBUTEROL 3 ML NEB INH SCH ×2 (07:15→15:20)
[2022-04-12] MEDS: LOSARTAN 50 MG TABLET PO SCH (08:44)
[2022-04-12] MEDS: PRENATAL VITAMIN TABLET PO SCH (08:44)
[2022-04-12] MEDS: guaiFENesin 600 MG TABLET PO PRN (08:45)
[2022-04-12] MEDS: THIAMINE 100 MG TABLET PO SCH (08:45)
[2022-04-12] MEDS: buPROPion SR 100 MG TABLET PO SCH (20:30)
[2022-04-12] MEDS: MONTELUKAST 10 MG TABLET PO SCH (20:30)
[2022-04-13] MEDS: IPRATROPIUM/ALBUTEROL 3 ML NEB INH SCH ×2 (07:35→20:20)
[2022-04-13] MEDS: PRENATAL VITAMIN TABLET PO SCH (08:03)
[2022-04-13] MEDS: LOSARTAN 50 MG TABLET PO SCH (08:03)
[2022-04-13] MEDS: THIAMINE 100 MG TABLET PO SCH (08:03)
[2022-04-13] MEDS: buPROPion SR 100 MG TABLET PO SCH (20:47)
[2022-04-13] MEDS: MONTELUKAST 10 MG TABLET PO SCH (20:48)
[2022-04-14] MEDS: IPRATROPIUM/ALBUTEROL 3 ML NEB INH SCH ×2 (06:15→18:09)
[2022-04-14] MEDS: THIAMINE 100 MG TABLET PO SCH (08:03)
[2022-04-14] MEDS: PRENATAL VITAMIN TABLET PO SCH (08:03)
[2022-04-14] MEDS: LOSARTAN 50 MG TABLET PO SCH (08:03)
[2022-04-14] MEDS: MONTELUKAST 10 MG TABLET PO SCH (20:00)
[2022-04-14] MEDS: buPROPion SR 100 MG TABLET PO SCH (20:00)
[2022-04-15] MEDS: IPRATROPIUM/ALBUTEROL 3 ML NEB INH SCH ×2 (06:20→18:02)
[2022-04-15] MEDS: guaiFENesin 600 MG TABLET PO PRN (07:36)
[2022-04-15] MEDS: THIAMINE 100 MG TABLET PO SCH (08:50)
[2022-04-15] MEDS: PRENATAL VITAMIN TABLET PO SCH (08:50)
[2022-04-15] MEDS: LOSARTAN 50 MG TABLET PO SCH (08:51)
[2022-04-15] MEDS: MONTELUKAST 10 MG TABLET PO SCH (20:37)
[2022-04-15] MEDS: buPROPion SR 100 MG TABLET PO SCH (20:37)
[2022-04-16] MEDS: IPRATROPIUM/ALBUTEROL 3 ML NEB INH SCH ×2 (06:15→16:38)
[2022-04-16] MEDS ORDERED: guaiFENesin/CODEINE 5 ML UDC PO PRN (08:46)
[2022-04-16] MEDS: THIAMINE 100 MG TABLET PO SCH (09:13)
[2022-04-16] MEDS: PRENATAL VITAMIN TABLET PO SCH (09:13)
[2022-04-16] MEDS: LOSARTAN 50 MG TABLET PO SCH (09:13)
[2022-04-16] MEDS: NICOTINE 7 MG PATCH TOP SCH (12:09)
--- NOTE | 2022-04-16 17:14 | PROVIDER PROGRESS NOTE ---
Subjective - Prog Note Date Prog Note Date: 04/16/22 - Subjective Pt reports feeling: Improved Subjective: He remembered who I was and that he is in rehab. He is requesting a nicotine patch. When asked if he wants to take a shower he refused. When he was told he will be taking a shower later today he complied and participated. Objective - Vital Signs/Intake & Output Vital Signs: Vital Signs x48h Temp Pulse Resp BP Pulse Ox 04/16/22 15:51 36.5 C 97 18 144/81 H 97 Intake & Output: Intake & Output 04/13/22 04/14/22 04/15/22 04/16/22 23:59 23:59 23:59 23:59 Intake Total 1270 1050 1560 680 Output Total 725 1000 1525 625 Balance 545 50 35 55 - Objective General Appearance: positive: No acute distress, Alert Eyes Bilateral: positive: Normal inspection, EOMI, Other (No icterus) ENT: positive: No signs of dehydration Neck: positive: Nml inspection Respiratory: positive: No respiratory distress. negative: Other (Diminished breath sounds, no wheezing or rhonchi) Cardiovascular: positive: Regular rate & rhythm, No murmur Abdomen: positive: Non-tender, Nml bowel sounds, No distention Skin: positive: Warm, Dry Extremities: positive: Non-tender, No pedal edema Neurologic/Psychiatric: positive: Disoriented to person, Disoriented to place, Disoriented to time, Other (Poor memory. No asterixis, no nystagmus) - Lab Results Fish Bones: 04/12/22 04:46 Assessment/Plan - Problem List (1) Physical deconditioning Impression: Patient was hospitalized for over a week as an inpatient. Prior to that he was also in bed for over a week because of diarrhea, weakness and was influenza positive when he got admitted as an Inpt. Since being in rehab in Swing status, he has walked daily except when there is no PT here on weekends. He has nearly met his goals: he needs to walk up the stairs today Plan: Daily PT and OT here He is ready for discharge soon I have ordered home health referral for PT and OT (2) Ataxia Conclusion/Plan: We suspect this is from longstanding alcohol abuse possibly made worse by his deconditioning Plan: Daily PT and OT (3) COPD (chronic obstructive pulmonary disease) Conclusion/Plan: This patient was on no medications (except blood pressure pill losartan) before being an Inpt. He was a smoker of 1 and 1/2 packs/day until this recent inpatient hospital stay. He had a COPD exacerbation caused by a pneumonia. Since being in rehab in Swing status, he still has a smokers cough, has been on roland Duoneb just BID and Mucinex and O2. Plan: Will transition him to Spiriva and also order Advair or Symbicort, and continue these at the time of discharge, as new prescriptions for home. He will need an oximetry walk test on the day of discharge (probably 04/18) (4) Sacral decubitus ulcer Conclusion/Plan: When he was an Inpatient, the told us that "all he does is sit all day, drink beer and smoke". He was found to have a stage I and stage II sacral decubitus ulcer. Topical treatment was ordered Plan: Continue with topical treatment Home health referral has been written to have home RN and home bath aide (5) Hyponatremia Conclusion/Plan: At his recent inpatient stay he presented with a sodium of 108, this slowly improved and plateaued at 125-127. Plan: We will check his BMP level intermittently to assure he is still close to 130. (6) Impaired cognitive ability Conclusion/Plan: He scored 12/30 per SLUMS testing. He is no longer allowed to drive a vehicle and a DMV report was submitted. is entirely in agreement. He has been offered showers since being an Inpatient and since being in Swing bed status and has refused a shower (approximately 3 weeks now). Today I placed a "doctor's order for shower" and he complied Plan: I told the several times that he is so impaired that he can no longer make medical decisions or any decisions for himself, even if he refuses something, and that she will have to be the decision maker. She agreed. (7) History of alcohol abuse Conclusion/Plan: Patient used to drink 15 beers a day for many years. This caused beer potomania and his severe hyponatremia. We also believe he has Dementia from alcohol abuse. Plan: Continue with daily vitamin and daily thiamine orally (8) Tobacco use Conclusion/Plan: Patient was a 1 and 1/2 PPD smoker. During his inpatient stay he was on a nicotine patch at 14 mg daily, and was started on Wellbutrin to help with smoking cessation. The Wellbutrin has helped him from not being as withdrawn. Plan: Will plan to continue with Wellbutrin after [facility] We ordered nicotine 7 mg patch for the 1 week, which finished. He requested it longer, I ordered the 7 mg dose today.
[2022-04-16] MEDS: MONTELUKAST 10 MG TABLET PO SCH (20:49)
[2022-04-16] MEDS: buPROPion SR 100 MG TABLET PO SCH (20:49)
[2022-04-17] MEDS: IPRATROPIUM/ALBUTEROL 3 ML NEB INH SCH (05:56)
[2022-04-17 06:07] LABS: CALCIUM 8.7 mg/dL (8.5-10.3); CREATININE 0.6 mg/dL (0.6-1.2); MAGNESIUM 1.9 mg/dL (1.7-2.8); POTASSIUM 3.9 mmol/L (3.5-5.0)
[2022-04-17] MEDS: PRENATAL VITAMIN TABLET PO SCH (07:56)
[2022-04-17] MEDS: LOSARTAN 50 MG TABLET PO SCH (07:57)
[2022-04-17] MEDS: NICOTINE 7 MG PATCH TOP SCH (07:58)
[2022-04-17] MEDS: THIAMINE 100 MG TABLET PO SCH (07:58)
[2022-04-17] MEDS: MONTELUKAST 10 MG TABLET PO SCH (20:17)
[2022-04-17] MEDS: buPROPion SR 100 MG TABLET PO SCH (20:17)
[2022-04-18] MEDS: IPRATROPIUM/ALBUTEROL 3 ML NEB INH SCH ×2 (05:49→15:00)
[2022-04-18] MEDS: PRENATAL VITAMIN TABLET PO SCH (07:44)
[2022-04-18] MEDS: LOSARTAN 50 MG TABLET PO SCH (07:45)
[2022-04-18] MEDS: THIAMINE 100 MG TABLET PO SCH (07:45)
[2022-04-18] MEDS: NICOTINE 7 MG PATCH TOP SCH (07:45)
[2022-04-18 09:18] VITALS: BP 139/65
--- NOTE | 2022-04-18 16:14 | Discharge Plan ---
Discharge Plan Problem Reviewed?: Yes Disposition: Home Health Service Condition: Fair Prescriptions: guaiFENesin/CODEINE [Robitussin AC] 5 ml PO Q6HR PRN #120 ml PRN Reason: Cough Losartan [Cozaar] 12.5 mg PO DAILY #30 tab guaiFENesin [Mucinex] 600 mg PO BID #60 tab Pantoprazole [Protonix] 40 mg PO DAILY #30 tab Thiamine [Vitamin B-1] 100 mg PO DAILY #30 tab buPROPion [Wellbutrin Sr] 100 mg PO QPM #30 tab Zinc Oxide 20% Oint [Zinc Oxide] 1 applic TOP BID #2 each Diet: Regular Activity Restrictions: Activity as Tolerated Shower Restrictions: No Driving Restrictions: No Instruction Topics: Hyponatremia Dc Health Concerns: You were admitted to the hospital April 04 through April 11 because of severe mineral and salt irregularities in your bloodstream. You were also severely malnourished. In the end you had a very low salt level (sodium) that was very dangerous with severe malnutrition from too much beer drinking and not enough good nutrition. You had something called beer potomania. Without admission, you did not go through alcohol withdrawal. Your sodium was normalized. But you were still very weak, deconditioned and could not get up and walk on your own. As such you were placed in a swing bed program which is a type of rehab program that allows you to recuperate and get stronger with rehabilitation using physical therapy and Occupational Therapy. After a week of this, you are now felt to have met your goals with regards to strength and endurance and are going to be discharged to home. Plan of Treatment: You cannot drink anymore. Ever. So please do not ask your to buy you beer. Please do not ask anyone to buy you beer. Please see Dr. Garrido, your primary care provider, in the next 2 to 3 weeks for follow-up. That way she can get a weight, blood pressure, and routine blood draw for kidneys and sodium to make sure they are stable. Care Goals: You wish to remain at home for as long as possible and independently as possible. However, if you do return to drinking and if you return back to the hospital with the same condition, your likelihood of going home again is very small. We would like to ask you and your to plan for the inevitability of placement in a care home if you are unable to stay sober. Assessment: Patient is alert, oriented. So is his . They understand care goals, and state that they understand instructions and will follow through No Smoking: If you smoke, Please STOP! Call for help. Follow-up with: Magdalena Garrido MD [Provider Admit Priv/Credential] -
--- NOTE | 2022-04-18 16:21 | DISCHARGE SUMMARY ---
Discharge Summary Admit Date: 04/11/22 Discharge Date: 04/18/22 Discharging Provider: Carmela Desai MD Primary Care Provider: Magdalena Garrido MD Code Status: Attempt Resuscitation Condition at Discharge: Fair Discharge Disposition: 06 Home Health Service - DIAGNOSES Discharge Diagnoses with Status of Each Condition: 1. Physical deconditioning 2. Gait ataxia secondary to alcohol abuse 3. COPD without exacerbation 4. Sacral decubitus ulcer present on admission 5. Hyponatremia 7. History of alcohol abuse 8. Tobacco use 9. 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 He has had frequent falls at home. He also has a history of tobacco abuse, was smoking one and 1/2 PPD for years. He only took a blood pressure med. The patient presented to [facility] ER with weakness, cough and malaise and was found to have profound Hyponatremia of 108, influenza A and pneumonia, with a COPD exacerbation. He was hospitalized and treated with Hypertonic saline, then Normal Saline, then free-water restriction was ordered, and he also got antibiotics, Tamiflu, COPD meds and was monitored for alcohol withdrawal, which he did not have. It was noted he had significant cognitive impairment, and he scored 12/30 on the SLUMS evaluation by OT. This was felt to be from longstanding alcohol use. He also has an ataxic gait (and walks pigeon toed chronically). He is being admitted to Swing bed status (SNF at [facility]) for PT and OT rehab. Currently, his CODE status is Full Code. History - Past Medical History Cardiovascular: reports: Hypertension Respiratory: reports: COPD Neuro: reports: Dementia Endocrine/Autoimmune: reports: None GI: reports: None : reports: Incontinence HEENT: reports: Chronic vision loss Psych: reports: None Musculoskeletal: reports: Osteoarthritis Derm: reports: None MRSA Hx?: No - HOSPITAL COURSE Hospital Course: Greater than 30 minutes was spent corning discharge. At discharge she said that he had none of the medications required to go home on. I resumed his usual home medications but apparently there was a reconciliation done within the hospital admission that made the discharge reconciliation incorrect with regards to resuming home meds. We carefully went over his med list. He is to stop wagner azepril and to be changed to Cozaar. All were escribed into [facility] pharmacy. Goal for this patient was to be able to safely return to home and continuing physical therapy and Occupational Therapy. But in order for him to return home he had to be able to transfer from supine to sitting, sitting to standing. He was performing all transfers with standby assist at discharge. He required repetition of sequencing for safe walker use. But felt that she could do that at home. was present throughout the PT/OT sessions and she felt comfortable taking him home. He was ambulating with a four-wheel walker, 200 feet, in the hallway. Gait is notable for slow ana and flatfoot contact for both feet. He was able to go upstairs using his right hand to hold onto the handrail. Physical therapy and Occupational Therapy did recommend discharging to home with home health with a PT/OT therapy request. Bath aide. And he is able to go home with private vehicle. Discharge exam had a temperature of 36.5. Heart rate 98. Blood pressure 139/65. Respirations 18. 97% on room air. He is 5 foot 9 inches tall, 62 kg. He is a slow to respond elderly gentleman with a gruff voice but following commands. He is forgetful. No JVD. Lungs are clear. He has a regular rate and rhythm with a systolic murmur. He is comfortable from a cardiovascular perspective and that there is no shortness of breath with speaking or walking. Abdomen is soft, nontender. He tends to be incontinent. Last bowel movement was April 15. He is hard of hearing any need to look right abdomen the face for him to see your lips move and hear you. No edema of extremities. Greater than 30 minutes was spent coordinating discharge and making sure the felt safe to take him home. We have reiterated that he cannot drink. And she must not buy him his alcohol - ALLERGIES Allergies/Adverse Reactions: Allergies Allergy/AdvReac Type Severity Reaction Status Date / Time Penicillins Allergy Rash Verified 06/11/17 07:03 - MEDICATIONS Home Medications: Ambulatory Orders Medication Instructions Recorded Confirmed Acetaminophen [Tylenol] 650 mg PO Q4HR PRN tab 04/11/22 Ipratropium/Albuterol [Duoneb] 3 ml INH RTTID ml 04/11/22 Losartan [Cozaar] 12.5 mg PO DAILY #30 tab 01/04/23 Pantoprazole [Protonix] 40 mg PO DAILY #30 tab 04/18/22 Thiamine [Vitamin B-1] 100 mg PO DAILY #30 tab 04/18/22 Zinc Oxide 20% Oint [Zinc Oxide] 1 applic TOP BID #2 each 04/18/22 buPROPion [Wellbutrin Sr] 100 mg PO QPM #30 tab 04/18/22 guaiFENesin [Mucinex] 600 mg PO BID #60 tab 04/18/22 guaiFENesin/CODEINE [Robitussin AC] 5 ml PO Q6HR PRN #120 ml 04/18/22 - LABS Result Diagrams: 04/17/22 05:22
== END 2022-04-18 17:20 | disposition home health service (06) | DRG 948 ==
LOC: MS2 12:23
PROVIDERS: ADMIT Internal Medicine; ATTEND Specialist
DX: R53.1 Weakness (principal); E87.1 Hypo-osmolality and hyponatremia; F10.27 Alcohol dependence with alcohol-induced persisting dementia; J44.9 Chronic obstructive pulmonary disease, unspecified; R27.0 Ataxia, unspecified; L89.159 Pressure ulcer of sacral region, unspecified stage; F17.210 Nicotine dependence, cigarettes, uncomplicated; G31.84 Mild cognitive impairment of uncertain or unknown etiology; F10.20 Alcohol dependence, uncomplicated; I10 Essential (primary) hypertension
CPT/HCPCS: 36415; 80048; 83735; 94640